=== PATIENT | female | born 1945 | race Caucasian/White ===

== ENCOUNTER 2022-08-24 18:51 | Inpatient (IN) | payer MEDICARE, SELFPAY ==
--- NOTE | ~2022-08-24 | XR_ITS ---
EXAMINATION: XR chest 2V DATE: 08/24/2022 20:21 INDICATION: Pain after fall TECHNIQUE: Frontal and lateral views of the chest are obtained COMPARISON: 01/31/2017 FINDINGS: There is mild atelectasis of the lung bases. No pleural effusion or pneumothorax. The cardi omediastinal silhouette is normal. There is severe thoracic spondylosis. IMPRESSION: 1. Mild atelectasis of the lung bases. Reviewed, dictated and finalized at location [facility]
--- NOTE | ~2022-08-24 | CT_ITS ---
EXAMINATION: CT brain wo con INDICATION: Head injury COMPARISON: None TECHNIQUE: Standard unenhanced head CT. The dose-length product (DLP) was 681.00 mGy-cm. The mA was a djusted according to patient size. Iterative reconstruction technique was employed. FINDINGS: There is no acute intraparenchymal hemorrhage. No evidence of mass lesion. No evidence of a cute infarction. There is mild periventricular and subcortical hypodensity probably related to small vessel ischemic disease. There is mild prominence of the sulci and ventricles related to cerebral atr ophy. Intracranial calcified cerebral atherosclerosis is noted. There are no extra-axial collections. There is no mass effect or midline shift. Changes in the globes are likely from ocular lens surgery. The visualized sinuses and mastoid air cells are well aerated. IMPRESSION: 1. No acute intracranial abnormality. 2. Age related findings. Reviewed, dictated and finalized at location [facility]. [facility]
[2022-08-24 18:54] VITALS: BP 135/77; PULSE 95; RESP 19; O2SAT 96
--- NOTE | 2022-08-24 18:58 | ECG_ITS ---
Measurements Intervals [place] Rate: 96 P: OR: 0 QRS: 3 QRSD: 86 T: 83 QT: 343 QTc: 434 Interpretive Statements ATRIAL FIBRILLATION CONSIDER INFERIOR INFARCT, AGE INDETERMINATE NONSPECIFIC ST & T-WAVE ABNORMALITY- hHIGH LATERAL LEADS BASELINE ARTIFACT- I, II, III, AVR, AVL, AVF, V1-V6 ABNORMAL ECG NO PREVIOUS ECG AVAILABLE FOR COMPARISON Electronically Signed On 08-28-2022 15:37:38 [employer] by Watson Knapp D.O.
[2022-08-24 19:59] LABS: Basophils Absolute Auto 0.1 K/mm3 (0.0-0.1); Basophils Percent Auto 0.4 % (0.2-1.2); Eosinophils Percent Auto 0.1 % (0-4.4); Hematocrit 51.3 % (37.0-47.0); Hemoglobin 16.9 g/dL (12.0-15.0); Immature Granulocyte Absolute 0.13 K/mm3 (0.00-0.031); Immature Granulocyte Percent A 0.6 % (0-0.5); Lymphocytes Absolute Auto 0.87 K/mm3 (0.9-3.2); Lymphocytes Percent Auto 3.8 % (18.3-44.2); Mean Corpuscular HGB Conc 32.9 g/dl (32-36); Mean Corpuscular Hemoglobin 30.8 pg (26-34); Mean Corpuscular Volume 93.4 fl (80-100); Mean Platelet Volume 10.6 fl (7.4-10.4); Monocytes Absolute Auto 1.5 K/mm3 (0.1-0.6); Monocytes Percent Auto 6.5 % (2.6-8.5); Neutrophils Absolute Auto 20.3 K/mm3 (1.3-6.7); Neutrophils Percent Auto 88.6 % (45.5-73.1); Platelet Count Result 269 k/mm3 (150-375); Red Blood Count 5.49 M/mm3 (4.2-5.4); Red Cell Distribution Width 13.2 % (11.5-14.5); White Blood Count 22.9 K/mm3 (4.5-10.0)
[2022-08-24 20:02] LABS: Appearance Urine Clear (Clear); Bilirubin Urine 2+ (Negative); Blood Urine 2+ (Negative); Color Urine Amber (Yellow); Glucose Urine UA Negative (Negative); Ketones Urine Trace mg/dL (Negative); Leukocyte Esterase Ur Negative LEU/UL (Negative); Nitrate Urine Negative (Negative); Protein Urine 2+ mg/dL (Negative); Specific Grav Ur >= 1.030 (1.001-1.035); Urobilinogen Urine 0.2 mg/dL (<2.0); pH Urine 5.5 (5.0-9.0)
[2022-08-24 20:06] LABS: Hyaline Casts Urine 15-19 /lpf; Mucus Urine Rare /lpf; Squamous Epithelial Cell Urine Rare /hpf (Few); WBC Urine 0-3 /hpf
[2022-08-24 20:09] LABS: INR 1.1; Prothrombin Time 14.2 Seconds (11.1-14.7)
[2022-08-24 20:11] LABS: Alanine Aminotransferase 57 U/L (6-35); Albumin Level 4.5 g/dL (3.5-5.1); Alkaline Phosphatase 97 U/L (38-126); Anion Gap 8 mmol/L (8-16); Aspartate Amino Transferase 127 U/L (14-36); Bilirubin,Total 1.2 mg/dL (0.2-1.3); Blood Urea Nitrogen 71 mg/dL (7-17); Calcium 9.2 mg/dL (8.4-10.2); Carbon Dioxide 26 mmol/L (22-30); Chloride 101 mmol/L (98-107); Estimated Glomerular Filt Rate 29; Glucose 124 mg/dL (65-110); Lipase 95 U/L (23-300); Potassium 3.8 mmol/L (3.4-5.0); Sodium 135 mmol/L (137-145)
[2022-08-24 20:12] LABS: Partial Thromboplastin Time 28.9 SECONDS (22.3-36.8)
[2022-08-24 20:24] LABS: Add Urine Microscopic? YES
[2022-08-24 21:03] LABS: Creatine Kinase 4741 U/L (30-135)
--- NOTE | 2022-08-24 21:42 | ED.GENADULT ---
HPI - General Adult General Chief complaint: Unspecified Stated complaint: on floor 4 days Time Seen by Provider: 08/24/22 18:58 History of Present Illness HPI narrative: Patient is a 77-year-old female who presents ER for weakness. Reports she has been having recurrent mechanical falls over the last couple weeks. She reports she fell again 4 days ago and was too weak to get off the floor. Did not strike her head or lose consciousness. She is unsure who called 911 or how an ambulance got to her home. She also reports she had previously been in a fdc for 5 days but is unsure how she ended up in the fdc. Denies previous hospitalization. She cannot tell me if she was discharged from the fdc or if she left on her own accord. Patient has no injury from fall. She has no additional complaints. Patient is oriented x3. She is asking if there are birds located in the upper corner of the hospital room (there were no birds). Related Data Home Medications Medication Instructions Recorded Confirmed amlodipine 5 mg tablet 5 mg PO DAILY 08/24/22 08/24/22 atenolol 50 mg tablet 50 mg PO DAILY 08/24/22 08/24/22 budesonide-formoterol HFA 160 1 puff inhalation BID 08/24/22 08/25/22 mcg-4.5 mcg/actuation aerosol inhaler (Symbicort) celecoxib 100 mg capsule 100 mg PO DAILY 08/24/22 08/25/22 duloxetine 30 mg capsule,delayed 30 mg PO DAILY 08/24/22 08/24/22 release lovastatin 10 mg tablet 10 mg PO QHS 08/24/22 08/25/22 aspirin 81 mg capsule 81 mg PO DAILY 08/25/22 08/25/22 cholecalciferol (vitamin D3) 25 25 mcg PO DAILY 08/25/22 08/25/22 mcg (1,000 unit) tablet (Vitamin D3) furosemide 20 mg tablet (Lasix) 20 mg PO DAILY 08/25/22 08/25/22 lorazepam 1 mg tablet 1 mg PO Q8H 08/25/22 08/25/22 Allergies Allergy/AdvReac Type Severity Reaction Status Date / Time No Known Allergies Allergy Mild Verified 01/12/08 22:16 Review of Systems Review of Systems: All systems reviewed & are unremarkable except as noted in HPI and below Constitutional: Constitutional: Denies chills, Denies fatigue, Denies fever(s) and Reports frequent falls ENT: Denies nasal congestion and Denies sore throat Cardiovascular: Cardiovascular: Denies chest pain, Denies rapid heart rate and Denies radiating jaw, neck or arm pain Respiratory: Respiratory: Denies cough, Denies dyspnea and Denies wheezing Gastrointestinal: Gastrointestinal: Denies abdominal pain, Denies diarrhea, Denies nausea and Denies vomiting Musculoskeletal: Musculoskeletal: Denies arthralgias, Denies joint swelling and Denies muscle cramps Neurologic: Denies syncope and Denies headache(s) Psychiatric: Psychiatric: Reports visual hallucinations (Reports seeing birds in the corner of the hospital room.) [facility] Family History Family History Sibling Diabetes mellitus Family history of liver disease Other Family history of arthritis Family history of congenital heart disease Family history of malignant neoplasm Hypertension Social History Social History Smoking packs per day: 1.5 Smoking cigarettes per day: 30.0 Smoking status: Current every day smoker Tobacco type: cigarettes Alcohol intake: never Substance use: never Lack of Transportation: No Lack of Food: Never True Current Housing: I Have Housing Concerned About Future Housing: No Difficulty Paying Gas/Electric Bills: No Difficulty Paying for Meds: No Currently Unemployed: No Education: High School Diploma/GED Difficulty w/ Childcare or Family Care: No Spiritual care concerns: No Exam Narrative: GENERAL: Well-appearing, well-nourished, and in no acute distress. HEAD: Normocephalic, atraumatic. EYES: PERRL and EOMI. ENT: Mucous membranes moist. NECK: Supple. CHEST: Clear to auscultation. No respiratory distress. HEART: Irregular regular rate and rhythm. Normal peripheral pulses. ABDOMEN: Soft, n
[2022-08-24] MEDS: SODIUM CHLORIDE 0.9% IV 1,000 ML 999 ML IV CONT (22:04)
[2022-08-24 22:07] VITALS: BP 136/77; BP 145/57; PULSE 84; PULSE 88
--- NOTE | 2022-08-24 22:08 | PM.IMHP ---
H&P: HPI History of Present Illness Date/Time: 08/24/22 22:08 Chief Complaint: Fall Narrative: This is a 77-year-old female with past medical history significant for hypertension, psoriasis, asthma, dyslipidemia, dyslipidemia, degenerative joint disease. Patient lives at home alone and suffered a fall in the middle of the night a ground level fall mechanical according to patient she was sitting next to her tub in the bathroom for several days, 4, she was able to get hold of someone the called the police who came home to check on her EMS was called and patient was brought to the emergency room. Patient denies any loss of consciousness, she had significant weakness and was unable to get up by herself. Patient denies any fevers, rigors, chills, no nausea, no vomiting, no diarrhea, no dizziness, no lightheadedness, no chest pain, no shortness of breath. Workup was significant for a CPK level of 4700, BUN 70/creatinine 1.7, lactic acid 2.5, a CT of the head was reported as: FINDINGS: There is no acute intraparenchymal hemorrhage. No evidence of mass lesion. No evidence of acute infarction. There is mild periventricular and subcortical hypodensity probably related to small vessel ischemic disease. There is mild prominence of the sulci and ventricles related to cerebral atrophy. Intracranial calcified cerebral atherosclerosis is noted. There are no extra-axial collections. There is no mass effect or midline shift. Changes in the globes are likely from ocular lens surgery. The visualized sinuses and mastoid air cells are well aerated. IMPRESSION: 1. No acute intracranial abnormality. A chest x-ray was reported as: FINDINGS: There is mild atelectasis of the lung bases. No pleural effusion or pneumothorax. The cardiomediastinal silhouette is normal. There is severe thoracic spondylosis. IMPRESSION: 1. Mild atelectasis of the lung bases. Review of Systems Review of Systems: Fall Constitutional: Constitutional: Denies chills, Denies fatigue, Denies fever(s), Denies lethargy, Denies malaise, Denies poor appetite and Reports weakness Eyes: Eyes: Denies change in vision ENT: Denies dysphagia, Denies vertigo, Denies dizziness and Denies odynophagia Cardiovascular: Cardiovascular: Denies chest pain, Denies irregular heart rhythm, Denies leg edema, Denies lightheadedness and Denies radiating jaw, neck or arm pain Respiratory: Respiratory: Denies chest congestion, Denies cough, Denies excessive phlegm production and Denies dyspnea Gastrointestinal: Gastrointestinal: Denies abdominal pain, Denies dyspepsia, Denies heartburn, Denies diarrhea, Denies nausea and Denies vomiting Genitourinary: Genitourinary: Denies dysuria Musculoskeletal: Musculoskeletal: Reports muscle weakness Integumentary/Breasts: Skin/Breast: Reports rash (Psoriasis patch) Neurologic: Denies abnormal gait, Denies vertigo, Denies dizziness, Denies syncope, Reports frequent falls, Denies focal weakness and Denies Sensory deficit (Neuro) Psychiatric: Psychiatric: Reports no additional psychiatric complaints and Reports as per HPI Endocrine: Endocrine: Denies cold intolerance, Denies flushing, Denies heat intolerance, Denies polyphagia, Denies polydipsia and Denies palpitations Hematologic/Lymphatic: Hematologic/Lymphatic: Reports no additional hematologic/lymphatic complaints and Reports as per HPI Allergic/Immunologic: Allergic/Immunologic: Reports no additional allergic/immunologic complaints and Reports as per HPI PMFSH Family History Family History (Updated 05/15/18 @ 13:32 by DOCTOR UNKNOWN) Sibling Diabetes mellitus Family history of liver disease Other Family history of arthritis Family history of congenital heart disease Family history of malignant neoplasm Hypertension Social History Social History Smoking packs per day: 1.5 Smoking cigarettes per day: 30.0 Smoking status: Current every day smoker Tobacco type: cigarettes Alcohol inta
--- NOTE | 2022-08-24 22:10 | PC.NURSE ---
pt unable to stand for orthostatic pressures.
[2022-08-24 22:58] LABS: Lactic Acid Reflex 2.5 mmol/L (0.7-2.0)
[2022-08-24 23:01] VITALS: BP 142/59; PULSE 78; RESP 19; O2SAT 100
[2022-08-24 23:02] VITALS: PULSE 82
--- NOTE | 2022-08-24 23:49 | ADMGEN ---
This patient, Merly Stratton I, was admitted to Medical Room 345-. Patient/family oriented to hospital policies and general routines including ID bracelet, bed and alarms, visiting hours, pain management, procedures, bathroom and other care routines, personal items, smoking policy, room service/diet, and visiting hours. Information on how to activate the Rapid Response Team has been discussed. Patient/Family are encouraged to report perceived risks to care and to ask questions if they do not understand what they are told or what they should do.
[2022-08-25] VITALS (8 sets, daily range): BP systolic 121–151; BP diastolic 60–68; PULSE 74–87; RESP 16–26; TEMP 36.4–36.9; O2SAT 92–96; BMI 42.7
[2022-08-25] MEDS: LORazepam (*CRX) 1 MG TABLET PO ×4 (00:48→21:02)
[2022-08-25] MEDS: SODIUM CHLORIDE 0.9% IV 1,000 ML 125 ML IV CONT ×4 (00:48→23:37)
[2022-08-25 01:00] LABS: Basophils Absolute Auto 0.1 K/mm3 (0.0-0.1); Basophils Percent Auto 0.4 % (0.2-1.2); Eosinophils Absolute Auto 0.1 K/mm3 (0-0.3); Eosinophils Percent Auto 0.3 % (0-4.4); Immature Granulocyte Absolute 0.11 K/mm3 (0.00-0.031); Immature Granulocyte Percent A 0.5 % (0-0.5); Lymphocytes Absolute Auto 1.14 K/mm3 (0.9-3.2); Lymphocytes Percent Auto 5.6 % (18.3-44.2); Mean Corpuscular HGB Conc 32.6 g/dl (32-36); Mean Corpuscular Hemoglobin 30.5 pg (26-34); Mean Corpuscular Volume 93.7 fl (80-100); Mean Platelet Volume 10.7 fl (7.4-10.4); Monocytes Absolute Auto 1.4 K/mm3 (0.1-0.6); Monocytes Percent Auto 6.8 % (2.6-8.5); Neutrophils Absolute Auto 17.6 K/mm3 (1.3-6.7); Neutrophils Percent Auto 86.4 % (45.5-73.1); Platelet Count Result 232 k/mm3 (150-375); Red Blood Count 4.91 M/mm3 (4.2-5.4); Red Cell Distribution Width 13.2 % (11.5-14.5); White Blood Count 20.4 K/mm3 (4.5-10.0)
--- NOTE | 2022-08-25 01:09 | ECG_ITS ---
Measurements Intervals [place] Rate: 91 P: 142 [place]: 174 QRS: 176 QRSD: 96 T: 150 QT: 377 QTc: 465 Interpretive Statements SINUS RHYTHM LIMB LEAD REVERSAL SUPRAVENTRICULAR BIGEMINY BORDERLINE T WAVE ABNORMALITY- ANT/INF LEADS BASELINE ARTIFACT- V3, V6 ABNORMAL ECG COMPARED TO ECG 08/24/2022 18:58:15 SINUS RHYTHM NOW PRESENT Electronically Signed On 08-25-2022 7:59:01 [employer] by Watson Knapp D.O.
[2022-08-25 01:14] LABS: Anion Gap 8 mmol/L (8-16); Blood Urea Nitrogen 67 mg/dL (7-17); Calcium 8.3 mg/dL (8.4-10.2); Carbon Dioxide 23 mmol/L (22-30); Chloride 104 mmol/L (98-107); Estimated CRCL calculation 44 ml/min; Estimated Glomerular Filt Rate 37; Glucose 136 mg/dL (65-110); Lactic Acid Reflex 2.1 mmol/L (0.7-2.0); Potassium 3.5 mmol/L (3.4-5.0); Sodium 135 mmol/L (137-145)
[2022-08-25 01:20] LABS: Creatine Kinase 3141 U/L (30-135)
[2022-08-25 01:46] LABS: Reflex Lactic Acid Yes or No Add Lactic
--- NOTE | 2022-08-25 03:10 | NBADM ---
This patient Merly Stratton I was born on [birth year] at 22:27. Apgars / .
--- NOTE | 2022-08-25 03:11 | PC.NURSE ---
0157 NOTIFIED RESPIRATORY OF EKG ORDER.
[2022-08-25] MEDS: CHOLECALCIFEROL 1,000 UNITS TABLET 1000 UNITS PO (08:19)
[2022-08-25] MEDS: ASPIRIN 81 MG CHEWABLE TABLET PO (08:19)
[2022-08-25] MEDS: DULoxetine HCL 30 MG CAPSULE.DR PO (08:19)
[2022-08-25] MEDS: FLUTICASONE/SALMETEROL 115-21 MCG INHALER 1 PUFF 2 PUFF INHALATION ×2 (09:05→20:45)
[2022-08-25 09:14] LABS: Glucose Point of Care 101 mg/dl (65-105)
--- NOTE | 2022-08-25 09:15 | PM.IMPN ---
Progress Note: A&P Assessment and Plan (1) Fall: Code(s): W19.XXXA - Unspecified fall, initial encounter Status: Acute Assessment and Plan: She fell in the bathroom and laid on the floor for 4 days Reports severe leg weakness Fall precautions PT/OT ordered (2) Rhabdomyolysis: Code(s): M62.82 - Rhabdomyolysis Status: Acute Assessment and Plan: Secondary to fall and laying on the ground for 4 days CK elevated at 4700 on admission, currently 3141 Continue IV fluids Trend labs Stable at this time (3) SAVAGE (acute kidney injury): Code(s): N17.9 - Acute kidney failure, unspecified Status: Acute Assessment and Plan: BUN/Cr elevated on arrival 71/1.70 Currently at 67/1.40 unknown baseline Likely pre renal azotemia, dehydration related to rhabo and fall Continue to monitor BUN and creatinine Receiving IV fluids (4) Leukocytosis: Code(s): D72.829 - Elevated white blood cell count, unspecified Status: Acute Assessment and Plan: Seems to be reactive No signs of infection Trending down Currently 20.4 Continue to trend hold off on antibiotics for now Time Spent With Patient Time: 57 minutes Time with patient: Greater than 35 minutes Subjective Date/time seen: 08/25/22 12:52 Interval history: [place] [address] [address] [place] [address] History & Physical Report Signed Patient: Merly Stratton I MR#: [id number] : 1945 Acct:[id number] Age/Sex: 77 / F 08/25/22 0915 Patient was eating breakfast. Patient stated that she feels a lot better however her legs are very very weak. She also stated that she has a little short of breath but she has not had any of her medications for 4 days. She denies any chest pain, nausea, vomiting, diarrhea constipation. She does have a really good appetite. CK is down to 3141 today. 08/24/22? 22:08 This is a 77-year-old female with past medical history significant for hypertension, psoriasis, asthma, dyslipidemia, dyslipidemia, degenerative joint disease.? Patient lives at home alone and suffered a fall in the middle of the night a ground level fall mechanical according to patient she was sitting next to her tub in the bathroom for several days, 4, she was able to get hold of someone the called the police who came home to check on her EMS was called and patient was brought to the emergency room.? Patient denies any loss of consciousness, she had significant weakness and was unable to get up by herself.? Patient denies any fevers, rigors, chills, no nausea, no vomiting, no diarrhea, no dizziness, no lightheadedness, no chest pain, no shortness of breath.? Workup was significant for a CPK level of 4700, BUN 70/creatinine 1.7, lactic acid 2.5 Review of Systems Review of Systems: All systems reviewed & are unremarkable except as noted in HPI and below Exam Narrative: General: well-nourished, well-appearing 77-year-old female, laying in bed, comfortable, NARD Neuro: awake, alert and oriented x4, speech clear, no focal neuro deficits noted HEENMT: normocephalic, atraumatic, EOMI, sclerae anicteric, moist oral mucosa Respiratory: Clear to auscultation bilaterally without crackles, rhonchi or wheezes, nonlabored breathing Cardio: regular rate, regular rhythm with S1-S2 Abdomen: nondistended, normoactive bowel sounds, soft, nontender to palpation Extremities: no edema, erythema, or tenderness to palpation, DP pulses 2+ bilaterally Skin: no rashes or lesions, warm and dry Psych: appropriate mood and affect, judgment and insight intact Objective Data Vital Signs Vital Signs: Vital Signs - 24 hr 08/24/22 18:54 08/24/22 22:07 08/24/22 22:07 Temperature Pulse Rate 95 84 88 Respiratory Rate 19 Blood Pressure 135/77 136/77 145/57 H Pulse Oximetry 96
--- NOTE | 2022-08-25 09:15 | P.PNIM_ITS ---
Progress Note: A&P Assessment and Plan (1) Fall: Code(s): W19.XXXA - Unspecified fall, initial encounter Status: Acute Assessment and Plan: * She fell in the bathroom and laid on the floor for 4 days * Reports severe leg weakness * Fall precautions * PT/OT ordered (2) Rhabdomyolysis: Code(s): M62.82 - Rhabdomyolysis Status: Acute Assessment and Plan: * Secondary to fall and laying on the ground for 4 days * CK elevated at 4700 on admission, currently 3141 * Continue IV fluids * Trend labs * Stable at this time (3) SAVAGE (acute kidney injury): Code(s): N17.9 - Acute kidney failure, unspecified Status: Acute Assessment and Plan: * BUN/Cr elevated on arrival 71/1.70 * Currently at 67/1.40 * unknown baseline * Likely pre renal azotemia, dehydration related to rhabo and fall * Continue to monitor BUN and creatinine * Receiving IV fluids (4) Leukocytosis: Code(s): D72.829 - Elevated white blood cell count, unspecified Status: Acute Assessment and Plan: * Seems to be reactive * No signs of infection * Trending down * Currently 20.4 * Continue to trend * hold off on antibiotics for now Time Spent With Patient Time: 57 minutes Time with patient: Greater than 35 minutes Subjective Date/time seen: 08/25/22 12:52 Interval history: [place] [id number] [place], [place] [id number] History & Physical Report Signed Patient: Merly Stratton I MR#: [id number] : 1945 Acct:[id number] Age/Sex: 77 / F 08/25/22 0915 Patient was eating breakfast. Patient stated that she feels a lot better however her legs are very very weak. She also stated that she has a little short of breath but she has not had any of her medications for 4 days. She denies any chest pain, nausea, vomiting, diarrhea constipation. She does have a really good appetite. CK is down to 3141 today. 08/24/22? 22:08 This is a 77-year-old female with past medical history significant for hypertension, psoriasis, asthma, dyslipidemia, dyslipidemia, degenerative joint disease.? Patient lives at home alone and suffered a fall in the middle of the night a ground level fall mechanical according to patient she was sitting next to her tub in the bathroom for several days, 4, she was able to get hold of someone the called the police who came home to check on her EMS was called and patient was brought to the emergency room.? Patient denies any loss of consciousness, she had significant weakness and was unable to get up by herself.? Patient denies any fevers, rigors, chills, no nausea, no vomiting, no diarrhea, no dizziness, no lightheadedness, no chest pain, no shortness of breath.? Workup was significant for a CPK level of 4700, BUN 70/creatinine 1.7, lactic acid 2.5 Review of Systems Review of Systems: All systems reviewed & are unremarkable except as noted in HPI and below Exam Narrative: General: well-nourished, well-appearing 77-year-old female, laying in bed, comfortable, NARD Neuro: awak
[2022-08-25 11:59] LABS: Glucose Point of Care 148 mg/dl (65-105)
[2022-08-25 17:21] LABS: Glucose Point of Care 112 mg/dl (65-105)
[2022-08-25 20:54] LABS: Glucose Point of Care 166 mg/dl (65-105)
[2022-08-25] MEDS: ACETAMINOPHEN 325 MG TABLET 650 MG PO (23:35)
[2022-08-26] VITALS (7 sets, daily range): BP systolic 111–142; BP diastolic 48–62; PULSE 63–88; RESP 16–20; TEMP 35.8–36.9; O2SAT 94–99
[2022-08-26] MEDS: LORazepam (*CRX) 1 MG TABLET PO ×3 (05:11→20:22)
[2022-08-26 05:27] LABS: Basophils Absolute Auto 0.1 K/mm3 (0.0-0.1); Basophils Percent Auto 0.8 % (0.2-1.2); Eosinophils Absolute Auto 0.6 K/mm3 (0-0.3); Eosinophils Percent Auto 5.2 % (0-4.4); Hematocrit 39.3 % (37.0-47.0); Hemoglobin 12.7 g/dL (12.0-15.0); Immature Granulocyte Absolute 0.07 K/mm3 (0.00-0.031); Immature Granulocyte Percent A 0.6 % (0-0.5); Lymphocytes Absolute Auto 1.58 K/mm3 (0.9-3.2); Lymphocytes Percent Auto 13.7 % (18.3-44.2); Mean Corpuscular HGB Conc 32.3 g/dl (32-36); Mean Corpuscular Hemoglobin 30.7 pg (26-34); Mean Corpuscular Volume 94.9 fl (80-100); Mean Platelet Volume 10.6 fl (7.4-10.4); Monocytes Absolute Auto 1.2 K/mm3 (0.1-0.6); Neutrophils Absolute Auto 8.1 K/mm3 (1.3-6.7); Neutrophils Percent Auto 69.7 % (45.5-73.1); Platelet Count Result 205 k/mm3 (150-375); Red Blood Count 4.14 M/mm3 (4.2-5.4); Red Cell Distribution Width 13.4 % (11.5-14.5); White Blood Count 11.6 K/mm3 (4.5-10.0)
[2022-08-26 05:44] LABS: Alanine Aminotransferase 43 U/L (6-35); Albumin Level 2.7 g/dL (3.5-5.1); Alkaline Phosphatase 57 U/L (38-126); Anion Gap 3 mmol/L (8-16); Aspartate Amino Transferase 65 U/L (14-36); Bilirubin,Total 0.7 mg/dL (0.2-1.3); Blood Urea Nitrogen 41 mg/dL (7-17); Calcium 7.5 mg/dL (8.4-10.2); Carbon Dioxide 24 mmol/L (22-30); Chloride 113 mmol/L (98-107); Creatine Kinase 1279 U/L (30-135); Estimated CRCL calculation 51 ml/min; Estimated Glomerular Filt Rate 44; Glucose 100 mg/dL (65-110); Magnesium 2.5 mg/dL (1.6-2.3); Potassium 3.2 mmol/L (3.4-5.0); Sodium 140 mmol/L (137-145)
[2022-08-26] MEDS: SODIUM CHLORIDE 0.9% IV 1,000 ML 125 ML IV CONT ×2 (07:32→20:23)
[2022-08-26] MEDS: DULoxetine HCL 30 MG CAPSULE.DR PO (08:56)
[2022-08-26] MEDS: CHOLECALCIFEROL 1,000 UNITS TABLET 1000 UNITS PO (08:56)
[2022-08-26] MEDS: ASPIRIN 81 MG CHEWABLE TABLET PO (08:56)
[2022-08-26] MEDS: FLUTICASONE/SALMETEROL 115-21 MCG INHALER 1 PUFF 2 PUFF INHALATION ×2 (09:15→21:03)
[2022-08-26] MEDS: ENOXAPARIN 40 MG/0.4 ML SYRINGE SUB-Q (09:25)
--- NOTE | 2022-08-26 12:00 | PM.IMPN ---
Progress Note: A&P Assessment and Plan (1) Fall: Code(s): W19.XXXA - Unspecified fall, initial encounter Status: Acute Assessment and Plan: She fell in the bathroom and laid on the floor for 4 days Reports severe leg weakness Fall precautions PT/OT ordered (2) Rhabdomyolysis: Code(s): M62.82 - Rhabdomyolysis Status: Acute Assessment and Plan: Secondary to fall and laying on the ground for 4 days CK elevated at 4700 on admission, currently 1279 Continue IV fluids at 125ml/hr Trend labs Stable at this time (3) SAVAGE (acute kidney injury): Code(s): N17.9 - Acute kidney failure, unspecified Status: Acute Assessment and Plan: BUN/Cr elevated on arrival 71/1.70 Currently at 41/1.20 unknown baseline Likely pre renal azotemia, dehydration related to rhabo and fall Continue to monitor BUN and creatinine Receiving IV fluids (4) Leukocytosis: Code(s): D72.829 - Elevated white blood cell count, unspecified Status: Acute Assessment and Plan: Seems to be reactive No signs of infection Trending down Continues to trend down, currently 11.6 Continue to trend hold off on antibiotics for now Plan ? MEDICAL DECISION MAKING NARRATIVE ? History obtained from: Patient which was a 38 minute conversation, and 15 minutes for IV insertion ? History from independent sources: nurse and care coordination ? External chart review: lab trends ? New problems addressed: Emotional ? Chronic illnesses addressed: none ? Independent interpretation of studies: none ? Comorbidities complicating care: ? Diagnostic tests considered but not ordered: ? Risk of complication: High: ? Time spent on encounter: 52 minutes Time Spent With Patient Time with patient: Greater than 35 minutes Subjective Date/time seen: 08/26/22 1200 Interval history: 08/26/22 1200 Patient is pretty upset today. Patient stated that her brother has been over helping her out however he is not happy about her home. He also stated that she needs to get up and get moving around so that she get back home. She currently denies any chest pain, shortness a breath, nausea, vomiting, diarrhea or constipation. She has been eating well. She does seem very sad and she looks as if she was crying. She really wants to get up today and is hopeful that showed to chair. upon arrival it was noted that she did not have an IV and 1 was placed by me. 08/25/22 0915 ? Patient was eating breakfast.? Patient stated that she feels a lot better however her legs are very very weak.? She also stated that she has a little short of breath but she has not had any of her medications for 4 days.? She denies any chest pain, nausea, vomiting, diarrhea constipation.? She does have a really good appetite.? CK is down to 3141 today. 08/24/22? 22:08 This is a 77-year-old female with past medical history significant for hypertension, psoriasis, asthma, dyslipidemia, dyslipidemia, degenerative joint disease.? Patient lives at home alone and suffered a fall in the middle of the night a ground level fall mechanical according to patient she was sitting next to her tub in the bathroom for several days, 4, she was able to get hold of someone the called the police who came home to check on her EMS was called and patient was brought to the emergency room.? Patient denies any loss of consciousness, she had significant weakness and was unable to get up by herself.? Patient denies any fevers, rigors, chills, no nausea, no vomiting, no diarrhea, no dizziness, no lightheadedness, no chest pain, no shortness of breath.? Workup was significant for a CPK level of 4700, BUN 70/creatinine 1.7, lactic acid 2.5 Review of Systems Review of Systems: All systems reviewed & are unremarkable except as noted in HPI and below Exam Narrative: General:? well-n
[2022-08-26] MEDS: POTASSIUM CHLORIDE 20 MEQ TABLET 40 MEQ PO (13:44)
[2022-08-26] MEDS: ACETAMINOPHEN 325 MG TABLET 650 MG PO ×2 (15:59→22:52)
[2022-08-27] VITALS (7 sets, daily range): BP systolic 119–131; BP diastolic 61–66; PULSE 59–89; RESP 16–20; TEMP 35.8–36.7; O2SAT 94–98
[2022-08-27] MEDS: SODIUM CHLORIDE 0.9% IV 1,000 ML 125 ML IV CONT (04:25)
[2022-08-27 05:42] LABS: Basophils Absolute Auto 0.1 K/mm3 (0.0-0.1); Basophils Percent Auto 0.7 % (0.2-1.2); Eosinophils Absolute Auto 0.8 K/mm3 (0-0.3); Eosinophils Percent Auto 7.5 % (0-4.4); Hematocrit 39.5 % (37.0-47.0); Hemoglobin 12.5 g/dL (12.0-15.0); Immature Granulocyte Absolute 0.04 K/mm3 (0.00-0.031); Immature Granulocyte Percent A 0.4 % (0-0.5); Lymphocytes Absolute Auto 1.66 K/mm3 (0.9-3.2); Lymphocytes Percent Auto 16.7 % (18.3-44.2); Mean Corpuscular HGB Conc 31.6 g/dl (32-36); Mean Corpuscular Hemoglobin 30.6 pg (26-34); Mean Corpuscular Volume 96.8 fl (80-100); Mean Platelet Volume 10.3 fl (7.4-10.4); Monocytes Percent Auto 9.5 % (2.6-8.5); Neutrophils Absolute Auto 6.5 K/mm3 (1.3-6.7); Neutrophils Percent Auto 65.2 % (45.5-73.1); Platelet Count Result 202 k/mm3 (150-375); Red Blood Count 4.08 M/mm3 (4.2-5.4); Red Cell Distribution Width 13.4 % (11.5-14.5)
[2022-08-27 05:53] LABS: Alanine Aminotransferase 41 U/L (6-35); Albumin Level 2.6 g/dL (3.5-5.1); Alkaline Phosphatase 57 U/L (38-126); Anion Gap 2 mmol/L (8-16); Aspartate Amino Transferase 50 U/L (14-36); Bilirubin,Total 0.6 mg/dL (0.2-1.3); Blood Urea Nitrogen 22 mg/dL (7-17); Calcium 7.4 mg/dL (8.4-10.2); Carbon Dioxide 24 mmol/L (22-30); Chloride 114 mmol/L (98-107); Creatine Kinase 719 U/L (30-135); Estimated CRCL calculation 61 ml/min; Estimated Glomerular Filt Rate 54; Glucose 94 mg/dL (65-110); Magnesium 2.4 mg/dL (1.6-2.3); Potassium 3.4 mmol/L (3.4-5.0); Sodium 140 mmol/L (137-145)
[2022-08-27] MEDS: LORazepam (*CRX) 1 MG TABLET PO ×3 (05:53→20:57)
[2022-08-27 06:36] LABS: Hepatitis B Surface Antigen Negative (Negative)
[2022-08-27 06:42] LABS: HAV RESULT Negative (Negative); Hepatitis B Core IgM Result Negative (Negative)
[2022-08-27 06:54] LABS: Hepatitis C Virus Antibody Negative (Negative)
[2022-08-27] MEDS: ACETAMINOPHEN 325 MG TABLET 650 MG PO ×2 (06:55→17:17)
[2022-08-27] MEDS: ASPIRIN 81 MG CHEWABLE TABLET PO (08:16)
[2022-08-27] MEDS: CHOLECALCIFEROL 1,000 UNITS TABLET 1000 UNITS PO (08:16)
[2022-08-27] MEDS: ENOXAPARIN 40 MG/0.4 ML SYRINGE SUB-Q (08:16)
[2022-08-27] MEDS: DULoxetine HCL 30 MG CAPSULE.DR PO (08:16)
[2022-08-27] MEDS: amLODIPine BESYLATE 5 MG TABLET PO (09:54)
[2022-08-27] MEDS: atenoloL 50 MG TABLET PO (09:54)
[2022-08-27] MEDS: FUROSEMIDE 20 MG TABLET PO (09:55)
[2022-08-27] MEDS: CELECOXIB 100 MG CAPSULE PO (09:55)
[2022-08-27] MEDS: FLUTICASONE/SALMETEROL 115-21 MCG INHALER 1 PUFF 2 PUFF INHALATION ×2 (10:34→20:57)
--- NOTE | 2022-08-27 11:00 | PM.IMPN ---
Progress Note: A&P Assessment and Plan (1) Fall: Code(s): W19.XXXA - Unspecified fall, initial encounter Status: Acute Assessment and Plan: She fell in the bathroom and laid on the floor for 4 days Reports severe leg weakness Fall precautions PT/OT ordered (2) Rhabdomyolysis: Code(s): M62.82 - Rhabdomyolysis Status: Acute Assessment and Plan: Secondary to fall and laying on the ground for 4 days CK elevated at 4700 on admission, currently 719 Continue IV fluids at 125ml/hr Trend labs Stable at this time (3) SAVAGE (acute kidney injury): Code(s): N17.9 - Acute kidney failure, unspecified Status: Acute Assessment and Plan: BUN/Cr elevated on arrival 71/1.70 Currently at 22/1.00 unknown baseline Likely pre renal azotemia, dehydration related to rhabo and fall Continue to monitor BUN and creatinine Receiving IV fluids Resolved (4) Leukocytosis: Code(s): D72.829 - Elevated white blood cell count, unspecified Status: Acute Assessment and Plan: Seems to be reactive No signs of infection Trending down Continues to trend down, currently 10.0 Continue to trend hold off on antibiotics for now Time Spent With Patient Time: 48 minutes Time with patient: Greater than 35 minutes Subjective Date/time seen: 08/27/22 1100 Interval history: 08/27/22 1100 Patient seems to be doing ok. She is in the chair and is quite disgruntle. She was talking to me about her brother. Currently she denies any chest pain, shortness of breath, nausea, vomiting, diarrhea or constipation. 08/26/22 1200 Patient is pretty upset today. Patient stated that her brother has been over helping her out however he is not happy about her home. He also stated that she needs to get up and get moving around so that she get back home. She currently denies any chest pain, shortness a breath, nausea, vomiting, diarrhea or constipation. She has been eating well. She does seem very sad and she looks as if she was crying. She really wants to get up today and is hopeful that showed to chair. upon arrival it was noted that she did not have an IV and 1 was placed by me. 08/25/22 0915 ? Patient was eating breakfast.? Patient stated that she feels a lot better however her legs are very very weak.? She also stated that she has a little short of breath but she has not had any of her medications for 4 days.? She denies any chest pain, nausea, vomiting, diarrhea constipation.? She does have a really good appetite.? CK is down to 3141 today. 08/24/22? 22:08 This is a 77-year-old female with past medical history significant for hypertension, psoriasis, asthma, dyslipidemia, dyslipidemia, degenerative joint disease.? Patient lives at home alone and suffered a fall in the middle of the night a ground level fall mechanical according to patient she was sitting next to her tub in the bathroom for several days, 4, she was able to get hold of someone the called the police who came home to check on her EMS was called and patient was brought to the emergency room.? Patient denies any loss of consciousness, she had significant weakness and was unable to get up by herself.? Patient denies any fevers, rigors, chills, no nausea, no vomiting, no diarrhea, no dizziness, no lightheadedness, no chest pain, no shortness of breath.? Workup was significant for a CPK level of 4700, BUN 70/creatinine 1.7, lactic acid 2.5 Review of Systems Review of Systems: All systems reviewed & are unremarkable except as noted in HPI and below Exam Narrative: General: well-nourished, well-appearing 77-year-old female, laying in bed, comfortable, NARD Neuro: awake, alert and oriented x4, speech clear, no focal neuro deficits noted HEENMT: normocephalic, atraumatic, EOMI, sclerae anicteric, moist oral mucosa Respiratory: Clear to auscult
[2022-08-27] MEDS: TOLNAFTATE 1% POWDER 45 GM BTL 1 APPLIC TOPICAL ×2 (13:12→21:00)
--- NOTE | 2022-08-27 14:31 | PCOTNOTE ---
Attempted to see patient twice this date. First attempt, patient was with physical therapy. Second attempt, RN reported patient back in bed and upset people will not stop coming in and bothering her. Did not disturb patient for this reason.
[2022-08-27] MEDS: LOVASTATIN 10 MG TABLET PO (20:57)
[2022-08-28] MEDS: ACETAMINOPHEN 325 MG TABLET 650 MG PO (00:33)
[2022-08-28] MEDS: HYDROcodone/acetaminophen (*CRX) 5-325 MG TABLET 1 TAB PO (03:57)
[2022-08-28 05:49] LABS: Basophils Absolute Auto 0.1 K/mm3 (0.0-0.1); Basophils Percent Auto 0.7 % (0.2-1.2); Eosinophils Absolute Auto 0.9 K/mm3 (0-0.3); Eosinophils Percent Auto 8.4 % (0-4.4); Hematocrit 41.7 % (37.0-47.0); Hemoglobin 13.3 g/dL (12.0-15.0); Immature Granulocyte Absolute 0.05 K/mm3 (0.00-0.031); Immature Granulocyte Percent A 0.5 % (0-0.5); Lymphocytes Percent Auto 14.4 % (18.3-44.2); Mean Corpuscular HGB Conc 31.9 g/dl (32-36); Mean Corpuscular Hemoglobin 30.7 pg (26-34); Mean Corpuscular Volume 96.3 fl (80-100); Mean Platelet Volume 10.7 fl (7.4-10.4); Monocytes Absolute Auto 1.1 K/mm3 (0.1-0.6); Monocytes Percent Auto 10.4 % (2.6-8.5); Neutrophils Absolute Auto 6.8 K/mm3 (1.3-6.7); Neutrophils Percent Auto 65.6 % (45.5-73.1); Platelet Count Result 201 k/mm3 (150-375); Red Blood Count 4.33 M/mm3 (4.2-5.4); Red Cell Distribution Width 13.2 % (11.5-14.5); White Blood Count 10.4 K/mm3 (4.5-10.0)
[2022-08-28 06:00] VITALS: BP 120/63; PULSE 59; RESP 16; TEMP 36.7; O2SAT 99
[2022-08-28 06:16] LABS: Alanine Aminotransferase 48 U/L (6-35); Albumin Level 2.6 g/dL (3.5-5.1); Alkaline Phosphatase 56 U/L (38-126); Anion Gap 2 mmol/L (8-16); Aspartate Amino Transferase 44 U/L (14-36); Bilirubin,Total 0.7 mg/dL (0.2-1.3); Blood Urea Nitrogen 19 mg/dL (7-17); Carbon Dioxide 28 mmol/L (22-30); Chloride 110 mmol/L (98-107); Creatine Kinase 426 U/L (30-135); Estimated CRCL calculation 67 ml/min; Estimated Glomerular Filt Rate > 60; Glucose 101 mg/dL (65-110); Magnesium 2.1 mg/dL (1.6-2.3); Potassium 3.9 mmol/L (3.4-5.0); Sodium 140 mmol/L (137-145)
--- NOTE | 2022-08-28 08:00 | PM.DS ---
DS: Admitting Diagnosis Discharge Date 08/28/2022 0800 Admitting Diagnosis Fall, Rhabdomyolysis DS: Discharge Diagnosis Discharge Diagnosis (1) Fall: Code(s): W19.XXXA - Unspecified fall, initial encounter Status: Acute Assessment and Plan: She fell in the bathroom and laid on the floor for 4 days Reports severe leg weakness Fall precautions PT/OT ordered (2) Rhabdomyolysis: Code(s): M62.82 - Rhabdomyolysis Status: Acute Assessment and Plan: Secondary to fall and laying on the ground for 4 days CK elevated at 4700 on admission, currently 719 Continue IV fluids at 125ml/hr Trend labs Stable at this time (3) SAVAGE (acute kidney injury): Code(s): N17.9 - Acute kidney failure, unspecified Status: Acute Assessment and Plan: BUN/Cr elevated on arrival 71/1.70 Currently at 22/1.00 unknown baseline Likely pre renal azotemia, dehydration related to rhabo and fall Continue to monitor BUN and creatinine Receiving IV fluids Resolved (4) Leukocytosis: Code(s): D72.829 - Elevated white blood cell count, unspecified Status: Acute Assessment and Plan: Seems to be reactive No signs of infection Trending down Continues to trend down, currently 10.0 Continue to trend hold off on antibiotics for now DS: Summary Hospital Course Hospital Course: patient is 77-year-old female with past medical history of hypertension, anxiety and depression, hyperlipidemia who presented to the ED after a fall. Patient was in the bathroom and fell and laid on the floor for roughly 4 days before she could get any help to get her up. Upon arrival CK was at 4700 however isn't trending down is currently 719. Patient was started on IV fluids and has been doing well. Currently patient has been working with PT and OT and has been doing pretty well. White blood cell count upon arrival was also elevated 20,000 is currently 10.0 today. Patient has not had any complaints including chest pain, shortness a breath, nausea, vomiting, diarrhea or constipation. Patient has been doing really well since admission. Patient is stable for discharge for labs and vital signs at this time. Status at Discharge Functional status at discharge: uses cane/walker Overall status at discharge: patient is progressing back to baseline Time Spent with Patient Time attestation: Total time spent providing and/or coordinating discharge services: 58 minutes Time spent: Greater than 30 minutes Specific discharge activities: Diagnostic testing, chart review, developing a treatment plan, education, care coordination documentation, physical exam, result review Exam Narrative: General: well-nourished, well-appearing 77-year-old female, laying in bed, comfortable, NARD Neuro: awake, alert and oriented x4, speech clear, no focal neuro deficits noted HEENMT: normocephalic, atraumatic, EOMI, sclerae anicteric, moist oral mucosa Respiratory: Clear to auscultation bilaterally without crackles, rhonchi or wheezes, nonlabored breathing Cardio: regular rate, regular rhythm with S1-S2 Abdomen: nondistended, normoactive bowel sounds, soft, nontender to palpation Extremities: no edema, erythema, or tenderness to palpation, DP pulses 2+ bilaterally Skin: no rashes or lesions, warm and dry Psych: appropriate mood and affect, judgment and insight intact DS: Data Data Completed and Pending Labs on day of discharge: Labs from last 24 hours 08/27/22 08/27/22 08/27/22 05:29 05:29 05:29 WBC 10.0 RBC 4.08 L Hgb 12.5 Hct 39.5 MCV 96.8 MCH 30.6 MCHC 31.6 L RDW 13.4 Plt Count 202 MPV 10.3 Immature Gran % (Auto) 0.4 Neut % (Auto) 65.2 Lymph % (Auto) 16.7 L [place] % (Auto) 9.5 H Eos % (Auto) 7.5 H Baso % (Auto) 0.7 Lymph # (Auto) 1.66 [place] # (Auto) 1.0 H Eos # (Auto) 0.
[2022-08-28] MEDS: FLUTICASONE/SALMETEROL 115-21 MCG INHALER 1 PUFF 2 PUFF INHALATION (09:07)
[2022-08-28] MEDS: LORazepam (*CRX) 1 MG TABLET PO ×2 (09:50→13:43)
[2022-08-28 09:51] VITALS: PULSE 72
[2022-08-28] MEDS: amLODIPine BESYLATE 5 MG TABLET PO (09:51)
[2022-08-28] MEDS: ASPIRIN 81 MG CHEWABLE TABLET PO (09:51)
[2022-08-28] MEDS: FUROSEMIDE 20 MG TABLET PO (09:51)
[2022-08-28] MEDS: DULoxetine HCL 30 MG CAPSULE.DR PO (09:51)
[2022-08-28] MEDS: atenoloL 50 MG TABLET PO (09:51)
[2022-08-28] MEDS: CELECOXIB 100 MG CAPSULE PO (09:51)
[2022-08-28] MEDS: CHOLECALCIFEROL 1,000 UNITS TABLET 1000 UNITS PO (09:52)
[2022-08-28] MEDS: ENOXAPARIN 40 MG/0.4 ML SYRINGE SUB-Q (09:52)
[2022-08-28] MEDS: TOLNAFTATE 1% POWDER 45 GM BTL 1 APPLIC TOPICAL (09:53)
[2022-08-28 11:43] LABS: EDCOVIDSCREEN Negative (Negative)
== END 2022-08-28 14:05 | DRG 558 ==
LOC: ANHED 19:04 → ANH3MED 23:17
PROVIDERS: Admitting Provider Internal Medicine; Emergency Provider Emergency Medicine; PCP Nurse Practitioner Adult Health; Visit Provider Nurse Practitioner
DX: M62.82 Rhabdomyolysis (principal); N17.9 Acute kidney failure, unspecified; W18.30XA Fall on same level, unspecified, initial encounter; E86.0 Dehydration; Z20.822 Contact with and (suspected) exposure to COVID-19; D72.829 Elevated white blood cell count, unspecified; F41.8 Other specified anxiety disorders; I10 Essential (primary) hypertension; E78.5 Hyperlipidemia, unspecified; R29.6 Repeated falls; F17.210 Nicotine dependence, cigarettes, uncomplicated; L40.9 Psoriasis, unspecified
CPT/HCPCS: 36415; 70450; 71046; 80048; 80053; 80074; 81001; 82550; 82948; 83605; 83690; 83735; 85025; 85610; 85730; 87426; 93005; 94640; 96360; 96361; 96372; 97162; 97165; 97530; 97535; 99285; A9270; C9803; G0378; J1650; J7030

== ENCOUNTER 2023-10-07 12:11 | Inpatient (IN) | payer MEDICARE, MEDICAID, SELFPAY ==
[2023-10-07] VITALS (33 sets, daily range): BP systolic 107–137; BP diastolic 67–119; PULSE 90–160; RESP 20–29; TEMP 36.3–36.8; O2SAT 90–100; BMI 44.7
--- NOTE | ~2023-10-07 | US_ITS ---
US renal BI 10/10/2023 17:06 Procedure: Realtime transabdominal ultrasound of the kidneys and bladder. Indication: Acute renal insufficiency Comparison: No prior studies for comparison. Findings: Renal echotexture is normal bilaterally without hydronephrosis, contour deforming mass or r enal calculus. The right kidney measures 9.3 cm and left kidney measures 10.3 cm. Bladder within nor mal limits. Impression: 1: Unremarkable renal ultrasound. No stones, masses or hydronephrosis. Reviewed, dictated and finalized at location A. Impression: 1: Unremarkable renal ultrasound. No stones, masses or hydronephrosis.
--- NOTE | ~2023-10-07 | XR_ITS ---
EXAMINATION: XR chest 1V portable DATE: 10/07/2023 12:32 INDICATION: Shortness of breath. Cough. TECHNIQUE: A single frontal view of the chest was obtained. COMPARISON: Chest 2 views 08/24/2022 FINDINGS: There is a small right pleural effusion versus pleural thickening. There is mild atelectasi s versus scarring at right lung base. No pneumothorax. The heart size is normal. IMPRESSION: 1. Small right pleural effusion versus pleural thickening with mild right atelectasis versus scarring at right lung base. Reviewed, dictated and finalized at location A. IMPRESSION: 1. Small right pleural effusion versus pleural thickening with mild right atele ctasis versus scarring at right lung base.
--- NOTE | ~2023-10-07 | US_ITS ---
EXAMINATION: US abdomen limited DATE: 10/08/2023 09:24 INDICATION: Elevated liver function tests TECHNIQUE: Multiple grayscale and Doppler ultrasound images of the abdomen were obtained. COMPARISON: None FINDINGS: The pancreatic head and body are normal in appearance. The pancreatic tail is not visualized. Visual ized proximal aorta and inferior vena cava are normal. Liver has normal echogenicity and contour, wit h a smooth surface. No liver lesion identified. No intrahepatic biliary duct dilation suspected. Port al venous flow was seen in the hepatopetal, normal direction and has normal Doppler waveform. The gal lbladder is normal in appearance. There is no cholelithiasis. The common bile duct measures 4 mm, wh ich is normal. Sonographic Stevens sign was reported as negative by the loan servicing specialist. Visualized portio n of the right kidney demonstrates normal echogenicity with no hydronephrosis. IMPRESSION: 1. Normal right upper quadrant ultrasound. Reviewed, dictated and finalized at location L.
--- NOTE | ~2023-10-07 | XR_ITS ---
EXAMINATION: XR shoulder RT min 2V DATE: 10/07/2023 13:16 INDICATION: Right shoulder pain. TECHNIQUE: 5 views of right shoulder were obtained. COMPARISON: None. FINDINGS: Bone alignment is normal. No fracture. There is mild osteoarthritis of glenohumeral joint a nd severe osteoarthritis of acromioclavicular joint. There is a small right pleural effusion versus p leural thickening. There are airspace opacities at right lung base. IMPRESSION: 1. Polyarticular osteoarthritis. 2. Small right pleural effusion versus pleural thickening. 3. Airspace opacities at right lung base, likely atelectasis or scarring. Reviewed, dictated and finalized at location A.
--- NOTE | 2023-10-07 12:12 | ECG_ITS ---
Measurements Intervals [place] Rate: 135 P: [place]: 0 QRS: 20 QRSD: 93 T: 67 QT: 317 QTc: 476 Interpretive Statements ATRIAL FIBRILLATION WITH RAPID VENTRICULAR RESPONSE NONSPECIFIC ST & T-WAVE ABNORMALITY- INF/LAT LEADS BASELINE ARTIFACT- I, II, III, AVR, AVL, AVF, V1-V6 ABNORMAL ECG COMPARED TO ECG 08/25/2022 02:19:35 ATRIAL FIBRILLATION NOW PRESENT Electronically Signed On 10-07-2023 12:50:59 CDT by Watson Knapp D.O.
[2023-10-07] MEDS: dilTIAZem HCl INJ 25 MG/5 ML VIAL (12:38)
--- NOTE | 2023-10-07 12:39 | ED.SOB ---
HPI - SOB/Dyspnea General Chief Complaint: Shortness of Breath/Dyspnea Stated Complaint: SOB Time Seen by Provider: 10/07/23 12:25 History of Present Illness HPI Narrative: Patient is a 78-year-old female with a history of hypertension, hyperlipidemia, COPD presenting with shortness of breath. Patient states that she has been short of breath for at least 1 week. States that her heart rate has been very fast for the last week according to her blood pressure cuff. States that she thought her symptoms would resolve so she did not come in to be checked out. Today she got sick of her symptoms so she called 911. States that she has had a productive cough and a lot of wheezing for the last 3 weeks that is temporarily helped with her inhalers. No fevers, no chest pain, no abdominal pain or nausea or vomiting. Denies any leg swelling. Related Data Home Medications Medication Instructions Recorded Confirmed amlodipine 5 mg tablet 5 mg PO DAILY 08/24/22 10/13/23 budesonide-formoterol HFA 160 1 puff inhalation BID 08/24/22 10/13/23 mcg-4.5 mcg/actuation aerosol inhaler (Symbicort) duloxetine 30 mg capsule,delayed 30 mg PO DAILY 08/24/22 10/13/23 release lovastatin 10 mg tablet 10 mg PO QHS 08/24/22 10/13/23 aspirin 81 mg capsule 81 mg PO DAILY 08/25/22 10/13/23 cholecalciferol (vitamin D3) 25 25 mcg PO DAILY 08/25/22 10/13/23 mcg (1,000 unit) tablet (Vitamin D3) lorazepam 1 mg tablet 1 mg PO Q6H PRN Anxiety 10/07/23 10/13/23 Allergies Allergy/AdvReac Type Severity Reaction Status Date / Time No Known Allergies Allergy Mild Verified 10/13/23 07:20 Review of Systems Review of Systems: All systems reviewed & are unremarkable except as noted in HPI and below PMFSH Past Medical History Medical History SAVAGE (acute kidney injury) (08/24/22) 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 Code status: Full code. Smoking packs per day: 1 Smoking cigarettes per day: 20.0 Years smoked: 60 Smoking pack-years: 60.00 Smoking status: Current every day smoker Alcohol intake: never Substance use: never Substance use type: does not use Do You Feel Safe in your Home?: Yes Lack of Transportation: No Lack of Food: Never True Current Housing: I Do Not Have Housing Concerned About Future Housing: No Difficulty Paying Gas/Electric Bills: No Difficulty Paying for Meds: No Currently Unemployed: No Education: High School Diploma/GED Difficulty w/ Childcare or Family Care: No Spiritual care concerns: No Exam Narrative: GENERAL: Nontoxic, no acute distress HEAD: Normocephalic, atraumatic. EYES: PERRLA and EOMI. ENT: Mucous membranes moist. NECK: Supple. CHEST: Wheezing and crackles bilaterally, no respiratory distress HEART: Tachycardic, irregularly irregular rhythm ABDOMEN: Soft, nontender, nondistended EXTREMITIES: Normal range of motion. No edema. SKIN: Warm, dry, +psoriatic plaques on hands, ankles NEURO: Alert and oriented x3. PSYCH: Normal mood and affect. Course Vital Signs Vital signs: Vital Signs Pulse Rate 150 H 10/07/23 12:25 Pulse Oximetry 95 10/07/23 12:25 Oxygen Delivery Room Air 10/07/23 12:25 Temperature 97.9 F 10/12/23 15:34 Pulse Rate 58 L 10/12/23 16:00 Respirat
[2023-10-07] MEDS: SODIUM CHLORIDE 0.9% IV 1,000 ML 999 ML IV CONT (12:46)
[2023-10-07] MEDS: dilTIAZem 100 MG/100 ML 100 MG/100 ML BAG IV CONT (12:49)
[2023-10-07] MEDS: methylPREDNISolone SOD SUCC 125 MG VIAL IV PUSH (12:49)
[2023-10-07 12:50] LABS: Basophils Absolute Auto 0.1 K/mm3 (0.0-0.1); Basophils Percent Auto 0.8 % (0.2-1.2); Eosinophils Absolute Auto 0.3 K/mm3 (0-0.3); Eosinophils Percent Auto 2.2 % (0-4.4); Hematocrit 41.9 % (37.0-47.0); Hemoglobin 13.3 g/dL (12.0-15.0); Immature Granulocyte Absolute 0.05 K/mm3 (0.00-0.031); Immature Granulocyte Percent A 0.4 % (0-0.5); Lymphocytes Absolute Auto 0.99 K/mm3 (0.9-3.2); Lymphocytes Percent Auto 7.9 % (18.3-44.2); Mean Corpuscular HGB Conc 31.7 g/dl (32-36); Mean Corpuscular Hemoglobin 30.7 pg (26-34); Mean Corpuscular Volume 96.8 fl (80-100); Mean Platelet Volume 10.9 fl (7.4-10.4); Monocytes Absolute Auto 0.8 K/mm3 (0.1-0.6); Monocytes Percent Auto 6.4 % (2.6-8.5); Neutrophils Absolute Auto 10.3 K/mm3 (1.3-6.7); Neutrophils Percent Auto 82.3 % (45.5-73.1); Platelet Count Result 258 k/mm3 (150-375); Red Blood Count 4.33 M/mm3 (4.2-5.4); Red Cell Distribution Width 12.9 % (11.5-14.5); White Blood Count 12.5 K/mm3 (4.5-10.0)
[2023-10-07 12:56] LABS: Alanine Aminotransferase 193 U/L (6-35); Albumin Level 3.8 g/dL (3.5-5.1); Alkaline Phosphatase 129 U/L (38-126); Anion Gap 7 mmol/L (8-16); Aspartate Amino Transferase 93 U/L (14-36); Bilirubin,Total 1.3 mg/dL (0.2-1.3); Blood Urea Nitrogen 20 mg/dL (7-17); Calcium 8.9 mg/dL (8.4-10.2); Carbon Dioxide 21 mmol/L (22-30); Chloride 110 mmol/L (98-107); Estimated CRCL calculation 66 ml/min; Estimated Glomerular Filt Rate > 60; Glucose 121 mg/dL (65-110); Potassium 3.9 mmol/L (3.4-5.0); Sodium 138 mmol/L (137-145)
[2023-10-07] MEDS: IPRATROPIUM BR 0.02% INH SOLN 0.5 MG/2.5 ML VIAL INHALATION (12:57)
[2023-10-07] MEDS: ALBUTEROL SULFATE NEB 2.5 MG/3 ML INH 10 MG INHALATION (12:57)
[2023-10-07 13:18] LABS: Lactic Acid Reflex 1.3 mmol/L (0.7-2.0)
[2023-10-07 13:37] LABS: Lipase 71 U/L (23-300); Magnesium 2.2 mg/dL (1.6-2.3)
[2023-10-07 13:41] LABS: Influenza A QL RT-PCR Negative (Negative); Influenza B QL RT-PCR Negative (Negative); RSV RNA, RT-PCR Negative (Negative); SARS-CoV-2 RNA PCR Negative (Negative)
[2023-10-07 13:49] LABS: NT Pro B Type Natriuretic Pept 5530 pg/mL (19.9-100); Troponin I < 0.012 ng/mL (0.000-0.034)
[2023-10-07 13:51] LABS: Prothrombin Time 13.2 Seconds (11.1-14.7)
[2023-10-07 13:52] LABS: Partial Thromboplastin Time 33.3 SECONDS (22.3-36.8)
[2023-10-07 14:18] LABS: Add Urine Microscopic? YES; Appearance Urine Clear (Clear); Bacteria Urine None Seen /hpf; Bilirubin Urine 1+ (Negative); Blood Urine Negative (Negative); Color Urine Dark Yellow (Yellow); Glucose Urine UA Negative (Negative); Hyaline Casts Urine Present /lpf; Ketones Urine Trace mg/dL (Negative); Leukocyte Esterase Ur Trace LEU/UL (Negative); Need Manual Microscopic Reviewed; Nitrate Urine Negative (Negative); Non Pathogenic Casts >20; Protein Urine 2+ mg/dL (Negative); RBC Urine 0-2 /hpf (0-2); Specific Grav Ur 1.023 (1.001-1.035); Squamous Epithelial Cell Urine Occasional /hpf (Few); WBC Urine 0-5 /hpf; pH Urine 5.5 (5.0-9.0)
--- NOTE | 2023-10-07 14:51 | PC.NURSE ---
Cardizem drip increased to 15mg/hr. Pt denies any increase in SOB or CP.Dr. Adhikari informed of increase in rate.
--- NOTE | 2023-10-07 16:10 | ECG_ITS ---
Measurements Intervals [place] Rate: 125 P: [place]: 0 QRS: 15 QRSD: 84 T: 133 QT: 300 QTc: 433 Interpretive Statements ATRIAL FIBRILLATION WITH RAPID VENTRICULAR RESPONSE NONSPECIFIC ST & T-WAVE ABNORMALITY- DIFFUSE LEADS BASELINE ARTIFACT- I, III, AVR, AVL, AVF ABNORMAL ECG COMPARED TO ECG 10/07/2023 12:32:25 NO SIGNIFICANT CHANGES Electronically Signed On 10-07-2023 17:06:02 CDT by Watson Knapp D.O.
--- NOTE | 2023-10-07 16:11 | PM.IMHP ---
H&P: HPI History of Present Illness Date/Time: 10/07/23 18:00 Chief Complaint: Shortness of breath and fast heart rate. Narrative: This is a 78-year-old female with history of hypertension, dyslipidemia, asthma, psoriasis, rhabdomyolysis, depression, and anxiety who presented to the emergency department for evaluation of shortness of breath and fast heart rate. The patient provides the following history. She gives a 1 week history of shortness of breath with exertion and racing heart which has been nearly constant. Her automated blood pressure cuff has showed that her heart rate has been up to 184 beats per minute. She has a and mild cough which is occasionally productive of clear sputum and she also endorses mild wheezing which is temporarily improved after using her inhalers. She is fatigued and has been getting a bit lightheaded upon standing. Due to ongoing symptoms she decided to come in today for evaluation. She denies fall, syncope, near syncope, chest pain, pleuritic pain, orthopnea, paroxysmal nocturnal dyspnea, edema, calf pain, nausea, and vomiting. She also denies fever, chills, and sweats. In the ED: She was afebrile on arrival with stable blood pressures. EKG showed atrial fibrillation with rapid ventricular response. Labs were significant for WBC count of 12.5, BUN 20, creatinine 0.90, lactic acid 1.3, AST 93, ALT 193, alkaline phosphatase 129, troponin less than 0.012, proBNP 5530, TSH 0.795. She tested negative for influenza, RSV, and COVID. Chest x-ray showed small right pleural effusion versus pleural thickening with mild right atelectasis versus scarring at the right lung base. She was started diltiazem drip and she is being admitted to the IMU for further treatment and evaluation. Review of Systems Review of Systems: Twelve systems were reviewed and are negative except for as per HPI. FORMERLY [facility] Past Medical History Medical History (Updated 10/07/23 @ 16:29 by Kathy Qiu PA-C) Asthma Depression with anxiety Hyperlipidemia Hypertension Psoriasis Rhabdomyolysis (07/2022) Family History Family History Sibling Diabetes mellitus Family history of liver disease Other Family history of arthritis Family history of congenital heart disease Family history of malignant neoplasm Hypertension Social History Social History (Updated 10/07/23 @ 16:19 by Kathy Qiu PA-C) Social History: Surrogate medical decision maker: Saqib Stratton, sibling. Code status: Full code. Smoking packs per day: 1 Smoking cigarettes per day: 20.0 Years smoked: 60 Smoking pack-years: 60.00 Smoking status: Current every day smoker Tobacco type: cigarettes Alcohol intake: never Substance use: never Substance use type: does not use Do You Feel Safe in your Home?: Yes Lack of Transportation: No Lack of Food: Never True Current Housing: I Do Not Have Housing Concerned About Future Housing: No Difficulty Paying Gas/Electric Bills: No Difficulty Paying for Meds: No Currently Unemployed: No Education: High School Diploma/GED Difficulty w/ Childcare or Family Care: No Spiritual care concerns: No Meds Home Medications and Allergies Home Medications Medication Instructions Recorded Confirmed Type amlodipine 5 mg tablet 5 mg PO DAILY 08/24/22 10/07/23 History atenolol 50 mg tablet 50 mg PO DAILY 08/24/22 10/07/23 History budesonide-formoterol HFA 160 1 puff inhalation BID 08/24/22 10/07/23 History mcg-4.5 mcg/actuation aerosol inhaler (Symbicort) celecoxib 100 mg capsule 100 mg PO DAILY 08/24/22 10/07/23 History duloxetine 30 mg capsule,delayed 30 mg PO DAILY 08/24/22 10/07/23 History release lovastatin 10 mg tablet 10 mg PO QHS 08/24/22 10/07/23 History aspirin 81 mg capsule 81 mg PO DAILY 08/25/22 10/07/23 History cholecalciferol (vitamin D3) 25 25 mcg PO DAILY 08/25/22 10/07/23 History mcg (1,000 unit) tabl
[2023-10-07 16:48] LABS: Creatine Kinase 44 U/L (30-135)
[2023-10-07 17:02] LABS: Troponin I < 0.012 ng/mL (0.000-0.034)
[2023-10-07] MEDS: ENOXAPARIN 120 MG/0.8 ML SYRINGE SUB-Q (17:15)
[2023-10-07 17:21] LABS: Thyroid Stimulating Hormone Reflex 0.795 uIU/mL (0.465-4.68)
[2023-10-07 18:55] LABS: Troponin I < 0.012 ng/mL (0.000-0.034)
[2023-10-07] MEDS: dilTIAZem 100 MG/100 ML 100 MG/100 ML BAG 15 MG IV CONT (20:45)
[2023-10-07] MEDS: LORazepam (*CRX) 1 MG TABLET PO (21:41)
[2023-10-07] MEDS: IPRATROPIUM 0.5 MG/ALBUTEROL SULFATE 2.5 MG AMPUL.NEB 3 ML INHALATION (23:00)
[2023-10-07] MEDS: NICOTINE (*PBKC) 21 MG PATCH 1 PATCH TRANSDERM (23:15)
[2023-10-08] VITALS (28 sets, daily range): BP systolic 113–130; BP diastolic 64–92; PULSE 78–134; RESP 20–22; TEMP 36.5–36.9; O2SAT 95–97
--- NOTE | 2023-10-08 | ECHO_ITS ---
Patient Info Name: Merly Stratton Age: 78 years : 1945 Gender: Female Ht: 67 in Wt: 291 lbs BSA: 2.57 m2 HR: 116 bpm BP: 120 / 86 mmHg Heart Rhythm: Atrial Fibrillation Technical Quality: Fair Exam Date: 10/08/2023 8:46 AM Exam Location: Echo Lab Patient Status: Outpatient Admit Date: 10/07/2023 Staff Ordering Physician: Kathy Qiu PA-C Creative Project Manager: Mercedes Cesar RDCS Attending Provider: Urmila Campoverde DO Referring Physician: Lazarus GAONA; Exam Type: CA echo doppler color flow Study Info Indications - new onset afib, htn, hld Complete two-dimensional, color flow and Doppler transthoracic echocardiogram is performed. Summary 1. Complete two-dimensional, color flow and Doppler transthoracic echocardiogram is performed. 2. Left ventricular chamber dimension is normal. 3. Left ventricular systolic function is normal, estimated at 55-60%. 4. There is moderate concentric increased left ventricular wall thickness. 5. The left ventricular diastolic function is abnormal. 6. E/e' 11 is mildly elevated. 7. Atrial fibrillation. 8. Right ventricular chamber dimension is mildly enlarged. 9. Right ventricular systolic function is moderately reduced with abnormal TAPSE 0.9 cm. 10. Left atrial chamber dimension is moderately enlarged. 11. Right atrial chamber dimension is mildly enlarged. 12. There is mild aortic valve sclerosis. 13. There is mild tricuspid valve regurgitation. 14. No pulmonary hypertension, estimated pulmonary arterial systolic pressure is 31 mmHg. 15. There is trace pulmonic regurgitation. Left Ventricle Atrial fibrillation. E/e' 11 is mildly elevated. Left ventricular chamber dimension is normal. Left ventricular systolic function is normal, estimated at 55-60%. There is moderate concentric increased left ventricular wall thickness. The left ventricular diastolic function is abnormal. Right Ventricle Right ventricular systolic function is moderately reduced with abnormal TAPSE 0.9 cm. Right ventricular chamber dimension is mildly enlarged. Left Atria Left atrial chamber dimension is moderately enlarged. Right Atria Right atrial chamber dimension is mildly enlarged. Aortic Valve The aortic valve is trileaflet. There is mild aortic valve sclerosis. There is no aortic valve stenosis. There is no aortic valve regurgitation. Pulmonic Valve There is trace pulmonic regurgitation. Mitral Valve There is no mitral valve stenosis. There is no mitral valve regurgitation. Tricuspid Valve There is mild tricuspid valve regurgitation. No pulmonary hypertension, estimated pulmonary arterial systolic pressure is 31 mmHg. Pericardium/Pleural There is no pericardial effusion. Inferior Vena Cava Normal inferior vena cava with >50% collapse upon inspiration consistent with normal right atrial pressure, 5 mmHg. Aorta The aortic root size at the sinus of Valsalva is normal. Left Ventricular Outflow Tract Name Value Normal LVOT 2D LVOT Diameter 2.0 cm LVOT Doppler LVOT Peak Gradient 2 mmHg LVOT Mean Gradient 1 mmHg LVOT VTI 12 cm LVOT VTI/AV VTI Ratio
[2023-10-08] MEDS: dilTIAZem 100 MG/100 ML 100 MG/100 ML BAG 15 MG IV CONT ×3 (02:34→19:40)
[2023-10-08] MEDS: LORazepam (*CRX) 1 MG TABLET PO ×3 (04:23→16:43)
[2023-10-08] MEDS: ENOXAPARIN 120 MG/0.8 ML SYRINGE SUB-Q ×2 (04:23→16:44)
[2023-10-08] MEDS: FLUTICASONE/SALMETEROL 115-21 MCG INHALER 1 PUFF 2 PUFF INHALATION ×2 (07:58→20:20)
--- NOTE | 2023-10-08 08:37 | PM.IMPN ---
Progress Note: A&P Assessment and Plan (1) COPD (chronic obstructive pulmonary disease): Code(s): J44.9 - Chronic obstructive pulmonary disease, unspecified Status: Acute (2) Transaminitis: Code(s): R74.01 - Elevation of levels of liver transaminase levels Status: Acute (3) Atrial fibrillation with rapid ventricular response: Code(s): I48.91 - Unspecified atrial fibrillation Status: Acute (4) Psoriasis: Code(s): L40.9 - Psoriasis, unspecified Status: Acute (5) Hypertension: Code(s): I10 - Essential (primary) hypertension Status: Acute (6) Hyperlipidemia: Code(s): E78.5 - Hyperlipidemia, unspecified Status: Acute (7) Leukocytosis: Code(s): D72.829 - Elevated white blood cell count, unspecified Status: Acute (8) Tobacco abuse: Code(s): Z72.0 - Tobacco use Status: Acute Plan 78-year-old female with a past medical history obesity, COPD, depression and anxiety, hypertension, hyperlipidemia, psoriasis, history of rhabdomyolysis, active tobacco abuse presenting with racing heart rate. Admitted on 10/07/2023 for atrial fibrillation with RVR AFib with RVR -pending echo. TSH within normal limit. Encourage patient to stop smoking, she reports she was done since Saturday. -currently on diltiazem IV 15 milligrams/hour however she remains in AFib with RVR to the 130s and going up to 140s when standing and walking. Consult Cardiology. She is on atenolol 50 mg p.o. q.day at home -Lovenox therapeutic dosing b.i.d. has been started Transaminitis -she is unaware of liver issues. He has had chronic transaminitis but as far as we can ascertain this has not been investigated aside from an infectious hepatitis screening panel which was negative. Liver ultrasound pending. Could be acute on chronic due to AFib with RVR. Also given Solu-Medrol 125 mg IV x1 in the ER. Should have close follow-up with PCP and biztalk architect. Elevated BNP -patient was prescribed Lasix outpatient but did not want to take it due to her incontinence. BNP elevation may be due to AFib with RVR and aside from that she appears compensated. Pending echo Leukocytosis -be reactive. No other indication of infectious etiology. Recheck and check procalcitonin Tobacco abuse -nicotine patch. Counseling provided COPD -diminished lung sounds. Given Solu-Medrol and neb treatment in the ER. Considering her shortness of breath may be due to AFib with RVR and beta agonist could worsen her RVR will hold off for now. Hypertension -controlled. Treat AFib Right pleural effusion -small, at the moment appears to be in significant. Continue to monitor FEN: Saline lock IV. GI prophylaxis: Not indicated DVT prophylaxis: On therapeutic dosing Lovenox for AFib high chads Vasc score Lines: Peripheral IV Code Status: Full code Dispo: Stable in IMU. Continue telemetry Subjective Date/time seen: 10/08/23 08:37 Interval history: No acute overnight events. Patient is up from bathroom walking by herself. Heart rate 144 on telemetry. She reports shortness of breath which has been going on for some time. Quit smoking on Saturday. Review of Systems Review of Systems: All systems reviewed & are unremarkable except as noted in HPI and below (Subjective) Exam Const: General: comfortable and no acute distress Other: Obese. A&O x3. Psoriatic plaques. Eyes: Pupils: Equal, round and reactive pupils present Neck: Neck: supple Resp: Effort & Inspection: normal respiratory effort Auscultation: diminished lung sounds Cardio: Rate: tachycardic Rhythm: abnormal rhythm Heart sounds: no gallops, no murmurs and no rubs GI: GI Palp: Yes Soft to palpation and No Tenderness to palpation present (GI) Extrem: General: no edema Objective Data Vital Signs Vital Signs: Vital Signs - 24 hr 10/07/23 12:25 10/07/23 12:25 10/07/23 12:27 Temperature 97.4 F L Pu
[2023-10-08 08:54] LABS: Basophils Percent Auto 0.1 % (0.2-1.2); Hematocrit 44.5 % (37.0-47.0); Immature Granulocyte Absolute 0.06 K/mm3 (0.00-0.031); Immature Granulocyte Percent A 0.4 % (0-0.5); Lymphocytes Absolute Auto 0.94 K/mm3 (0.9-3.2); Lymphocytes Percent Auto 6.1 % (18.3-44.2); Mean Corpuscular HGB Conc 31.5 g/dl (32-36); Mean Corpuscular Hemoglobin 30.9 pg (26-34); Mean Corpuscular Volume 98.2 fl (80-100); Mean Platelet Volume 10.5 fl (7.4-10.4); Monocytes Absolute Auto 0.8 K/mm3 (0.1-0.6); Neutrophils Absolute Auto 13.6 K/mm3 (1.3-6.7); Neutrophils Percent Auto 88.4 % (45.5-73.1); Platelet Count Result 306 k/mm3 (150-375); Red Blood Count 4.53 M/mm3 (4.2-5.4); White Blood Count 15.4 K/mm3 (4.5-10.0)
[2023-10-08 09:04] LABS: Alanine Aminotransferase 180 U/L (6-35); Albumin Level 4.3 g/dL (3.5-5.1); Alkaline Phosphatase 136 U/L (38-126); Anion Gap 11 mmol/L (8-16); Aspartate Amino Transferase 59 U/L (14-36); Blood Urea Nitrogen 27 mg/dL (7-17); Calcium 9.5 mg/dL (8.4-10.2); Carbon Dioxide 23 mmol/L (22-30); Chloride 107 mmol/L (98-107); Estimated CRCL calculation 51 ml/min; Estimated Glomerular Filt Rate 44; Glucose 147 mg/dL (65-110); Potassium 4.3 mmol/L (3.4-5.0); Sodium 141 mmol/L (137-145)
[2023-10-08 09:37] LABS: Procalcitonin 0.1 ng/mL
--- NOTE | 2023-10-08 10:30 | PM.CNCAR ---
Assessment and Plan Assessment and plan (1) Atrial fibrillation with rapid ventricular response: Code(s): I48.91 - Unspecified atrial fibrillation Status: Acute Assessment and Plan: Patient presents with a sensation of rapid heartbeat and has been found to be in atrial fibrillation with rapid ventricular response. This is a new diagnosis for the patient. Chronicity unknown, but based on history probably began 3-4 weeks ago. Since she has probably been in AF for several weeks and not anticoagulated, will pursue rate control for now Continue diltiazem gtt at 15mg/hr, shift atenolol to metoprolol 75mg b.i.d. and give a one time dose of metoprolol 12.5mg now If we are unable to rate control her, can consider KATE guided cardioversion with anesthesia (obesity, prob. NAUN) Check ApneaLink TSH WNL Continue telemetry Close BP monitoring with medication adjustments for rate control Echo is pending (2) Hyperlipidemia: Code(s): E78.5 - Hyperlipidemia, unspecified Status: Acute Assessment and Plan: Continue statin (3) Hypertension: Code(s): I10 - Essential (primary) hypertension Status: Acute Assessment and Plan: At goal (4) Tobacco abuse: Code(s): Z72.0 - Tobacco use Status: Acute Assessment and Plan: She quit smoking last 09/29/23. Continue nicotine patch. History of Present Illness History of Present Illness Consult date/time: 10/08/23 10:30 Requesting physician: Lena Asencio MD Consult reason: atrial fibrillation Reason For Visit: Afib w RVR Narrative: Merly Stratton is a 78 year old female with no previous cardiac history who presents to the hospital with complaints of racing heartbeat and shortness of breath with exertion. Patient states she has been feeling a rapid heartbeat for about 1 month. She states she was hoping that the rapid heartbeat would just go away but when she became more and more short of breath she decided that she needed to be evaluated. She has been found to be in atrial fibrillation with rapid ventricular response. She has been placed a Diltiazem drip and her heart rate remains elevated up to the 140's intermittently. She can still feel her heart racing but it is no longer constant. She denies any shortness of breath or chest pain. Review of Systems Review of Systems: All systems reviewed & are unremarkable except as noted in HPI and below PMFSH Past Medical History Medical History Asthma COPD (chronic obstructive pulmonary disease) Depression with anxiety Hyperlipidemia Hypertension Psoriasis Rhabdomyolysis (07/2022) Tobacco abuse Family History Family History Sibling Diabetes mellitus Family history of liver disease Other Family history of arthritis Family history of congenital heart disease Family history of malignant neoplasm Hypertension Social History Social History Social History: Surrogate medical decision maker: Saqib Koenigo, sibling. Code status: Full code. Smoking packs per day: 1 Smoking cigarettes per day: 20.0 Years smoked: 60 Smoking pack-years: 60.00 Smoking status: Current every day smoker Tobacco type: cigarettes Alcohol intake: never Substance use: never Substance use type: does not use Do You Feel Safe in your Home?: Yes Lack of Transportation: No Lack of Food: Never True Current Housing: I Do Not Have Housing Concerned About Future Housing: No Difficulty Paying Gas/Electric Bills: No Difficulty Paying for Meds: No Currently Unemployed: No Education: High School Diploma/GED Difficulty w/ Childcare or Family Care: No Spiritual care concerns: No Meds Home Medications and Allergies Home Medications Medication Instructions Recorded Confirmed Type amlod
[2023-10-08] MEDS: DULoxetine HCL 30 MG CAPSULE.DR PO (10:49)
[2023-10-08] MEDS: ASPIRIN 81 MG ENTERIC TABLET PO (10:50)
[2023-10-08] MEDS: CHOLECALCIFEROL 1,000 UNITS TABLET 1000 UNITS PO (10:50)
[2023-10-08] MEDS: atenoloL 50 MG TABLET PO (10:50)
[2023-10-08] MEDS: METOPROLOL TARTRATE 12.5 MG TABLET PO (12:30)
[2023-10-08] MEDS: NICOTINE (*PBKC) 21 MG PATCH 1 PATCH TRANSDERM (13:45)
[2023-10-08] MEDS: METOPROLOL TARTRATE TAB 25 MG, METOPROLOL TARTRATE TAB 50 MG 75 MG PO (20:37)
[2023-10-08] MEDS: LOVASTATIN 10 MG TABLET PO (20:37)
[2023-10-09] VITALS (26 sets, daily range): BP systolic 111–136; BP diastolic 52–89; PULSE 59–139; RESP 20–22; TEMP 36.3–36.7; O2SAT 94–97
[2023-10-09] MEDS: LORazepam (*CRX) 1 MG TABLET PO ×4 (00:03→22:07)
[2023-10-09] MEDS: dilTIAZem 100 MG/100 ML 100 MG/100 ML BAG 15 MG IV CONT (02:33)
[2023-10-09] MEDS: ENOXAPARIN 120 MG/0.8 ML SYRINGE SUB-Q (06:26)
[2023-10-09] MEDS: FLUTICASONE/SALMETEROL 115-21 MCG INHALER 1 PUFF 2 PUFF INHALATION ×2 (08:21→19:35)
[2023-10-09] MEDS: DULoxetine HCL 30 MG CAPSULE.DR PO (08:46)
[2023-10-09] MEDS: CHOLECALCIFEROL 1,000 UNITS TABLET 1000 UNITS PO (08:46)
[2023-10-09] MEDS: ASPIRIN 81 MG ENTERIC TABLET PO (08:46)
[2023-10-09] MEDS: METOPROLOL TARTRATE TAB 25 MG, METOPROLOL TARTRATE TAB 50 MG 75 MG PO ×2 (08:46→20:46)
--- NOTE | 2023-10-09 09:43 | PM.IMPN ---
Progress Note: A&P Assessment and Plan (1) COPD (chronic obstructive pulmonary disease): Code(s): J44.9 - Chronic obstructive pulmonary disease, unspecified Status: Acute (2) Transaminitis: Code(s): R74.01 - Elevation of levels of liver transaminase levels Status: Acute (3) Atrial fibrillation with rapid ventricular response: Code(s): I48.91 - Unspecified atrial fibrillation Status: Acute (4) Psoriasis: Code(s): L40.9 - Psoriasis, unspecified Status: Acute (5) Hypertension: Code(s): I10 - Essential (primary) hypertension Status: Acute (6) Hyperlipidemia: Code(s): E78.5 - Hyperlipidemia, unspecified Status: Acute (7) Leukocytosis: Code(s): D72.829 - Elevated white blood cell count, unspecified Status: Acute (8) Tobacco abuse: Code(s): Z72.0 - Tobacco use Status: Acute Plan 78-year-old female with a past medical history obesity, COPD, depression and anxiety, hypertension, hyperlipidemia, psoriasis, history of rhabdomyolysis, active tobacco abuse presenting with racing heart rate. Admitted on 10/07/2023 for atrial fibrillation with RVR AFib with RVR -echo noted. TSH within normal limit. Encourage patient to stop smoking, she reports she was done since Saturday which is the day prior to admission. -currently on diltiazem IV 15 milligrams/hour. Her RVR is slightly improved. Continue management per Cardiology. On 10/07 her home dose atenolol was DC the metoprolol tartrate 75 mg p.o. b.i.d. was started. -Lovenox therapeutic dosing b.i.d. has been started Transaminitis -she is unaware of liver issues. He has had chronic transaminitis but as far as we can ascertain this has not been investigated aside from an infectious hepatitis screening panel which was negative. Liver ultrasound unrevealing. Could be acute on chronic due to AFib with RVR. Also given Solu-Medrol 125 mg IV x1 in the ER. Should have close follow-up with PCP and spray stainer. Elevated BNP -patient was prescribed Lasix outpatient but did not want to take it due to her incontinence. BNP elevation may be due to AFib with RVR and aside from that she appears compensated. Surface echo conducted on 10/07 demonstrating normal EF at 55-60% with moderate concentric increased left ventricular wall thickness and left ventricular diastolic dysfunction. Leukocytosis -increased on 10/08 although procalcitonin negative. This could be due to steroid use or bronchitis. Continue to monitor. Tobacco abuse -nicotine patch. Counseling provided COPD -given Solu-Medrol and neb treatment in the ER. Treatment was not continued thereafter. For on 10/08 her wheezing is more appreciated and she is now complaining of increasing cough and white sputum production with shortness of breath. Start prednisone 40 mg p.o. q.day and azithromycin. Hypertropia nebs q.6 hours. For now will hold off on beta agonist as to not further worsen her atrial fibrillation with RVR. COVID flu RSV negative. Hypertension -controlled. Treat AFib Right pleural effusion -small, at the moment appears to be in significant. Continue to monitor FEN: Saline lock IV. Heart healthy diet GI prophylaxis: Not indicated DVT prophylaxis: On therapeutic dosing Lovenox for AFib high chads Vasc score Lines: Peripheral IV Code Status: Full code Dispo: Stable in IMU. Transfer to medical floor. Continue telemetry. Subjective Date/time seen: 10/09/23 09:43 Interval history: No acute overnight events. Patient reports distress breathing with a cough and white sputum production. This is more than her usual. She denies fever or chills. Denies chest pain abdominal pain nausea vomiting diarrhea. Review of Systems Review of Systems: All systems reviewed & are unremarkable except as noted in HPI and below (Subjective) Exam Const: General: comfortable and no acute distress Other: A&O x3. Obese. Eyes
--- NOTE | 2023-10-09 10:23 | PM.PNCARD ---
Progress Note: A&P Assessment and Plan (1) Atrial fibrillation with rapid ventricular response: Code(s): I48.91 - Unspecified atrial fibrillation Status: Acute Assessment and Plan: Patient presented with a sensation of rapid heartbeat and has been found to be in atrial fibrillation with rapid ventricular response.? This is a new diagnosis for the patient.? Chronicity unknown, but based on history probably began 3-4 weeks ago. Echocardiogram 10/07 shows LVEF 55-60%, left atrium is moderately enlarged, right atrium is mildly enlarged. Since she has probably been in AF for several weeks and not anticoagulated, will pursue rate control for now Continue Metoprolol 75mg BID. Stop Diltiazem drip, start PO Diltiazem. Will switch her therapeutic Lovenox to Eliquis 5mg BID. If we are unable to rate control her, will need KATE guided cardioversion with Anesthesia team (obesity, prob. NAUN) Check ApneaLink TSH WNL Continue telemetry Close BP monitoring with medication adjustments for rate control (2) Hyperlipidemia: Code(s): E78.5 - Hyperlipidemia, unspecified Status: Acute Assessment and Plan: Continue statin (3) Hypertension: Code(s): I10 - Essential (primary) hypertension Status: Acute Assessment and Plan: At goal (4) Tobacco abuse: Code(s): Z72.0 - Tobacco use Status: Acute Assessment and Plan: She quit smoking last 09/29/23.? Continue Nicotine patch. Plan Recommendations and plan discussed with Hospitalist. Subjective Date/time seen: 10/09/23 10:23 Interval history: Reason for visit: Atrial fibrillation with RVR HPI: Merly Stratton is a 78 year old female with no previous cardiac history who presents to the hospital with complaints of racing heartbeat and shortness of breath with exertion.? Patient states she has been feeling a rapid heartbeat for about 1 month.? She states she was hoping that the rapid heartbeat would just go away but when she became more and more short of breath she decided that she needed to be evaluated. She has been found to be in atrial fibrillation with rapid ventricular response. ? She has been placed a Diltiazem drip and her heart rate remains elevated up to the 140's intermittently.? She can still feel her heart racing but it is no longer constant.? She denies any shortness of breath or chest pain. Date of service 10/08: She is feeling okay. Has occasionally RVR, however, rates are controlled at the time of my evaluation. Review of Systems Review of Systems: All systems reviewed & are unremarkable except as noted in HPI and below (HPI) Exam Const: General: no acute distress HENMT: Mouth: Yes dry mucous membranes Eyes: General: appearance normal, both eyes and all related structures Sclera: sclerae normal Resp: Effort & Inspection: normal respiratory effort Cardio: Rhythm: abnormal rhythm irregularly irregular Skin: Other: Rash noted on arms, appears to be psoriasis Neuro: Speech: normal speech Psych: Mental Status: mental status grossly normal Affect: normal affect Objective Data Vital Signs Vital Signs: Vital Signs - 24 hr 10/08/23 10:50 10/08/23 12:00 10/08/23 12:00 Temperature 36.6 C Pulse Rate 110 H 78 Respiratory Rate 22 H Blood Pressure 118/92 H Pulse Oximetry 95 Oxygen Delivery Room Air Fraction of Inspired Oxygen 10/08/23 12:00 10/08/23 12:30 10/08/23 14:00 Temperature Pulse Rate 124 H 118 H 118 H Respiratory Rate Blood Pressure Pulse Oximetry Oxygen Delivery Fraction of Inspired Oxygen 10/08/23 16:00 10/08/23 16:00 10/08/23 16:00 Temperature 36.8 C Pulse Rate 112 H 116 H Respiratory Rate 20 Blood Pressure 124/75 Pulse Oximetry 97 Oxygen Delivery Room Air Fraction of Inspired Oxygen 10/08/23 19:22 10/08/23 18:00 10/08/23 12:00 Temperature 36.7 C Pulse Rate 129 H 115 H 115 H Respiratory Rate 22 H
[2023-10-09] MEDS: AZITHROMYCIN 250 MG TABLET 500 MG PO (10:42)
[2023-10-09] MEDS: dilTIAZem HCL CD 240 MG CAP.24HR PO (10:42)
[2023-10-09] MEDS: predniSONE 20 MG TABLET 40 MG PO (10:43)
[2023-10-09] MEDS: IPRATROPIUM BR 0.02% INH SOLN 0.5 MG/2.5 ML VIAL INHALATION ×2 (13:48→19:35)
[2023-10-09] MEDS: LOVASTATIN 10 MG TABLET PO (20:47)
[2023-10-09] MEDS: APIXABAN 5 MG TABLET PO (20:47)
[2023-10-10] VITALS (27 sets, daily range): BP systolic 94–130; BP diastolic 66–98; PULSE 105–138; RESP 18–22; TEMP 36.1–36.6; O2SAT 93–97
--- NOTE | 2023-10-10 02:30 | PCRCNOTE ---
Pt did not want 0200 tx on 10/10/23 if she was not awake. Pt was asleep when RT arrived for her tx. Next tx will be given as scheduled.
[2023-10-10] MEDS: IPRATROPIUM BR 0.02% INH SOLN 0.5 MG/2.5 ML VIAL INHALATION ×4 (03:15→20:40)
--- NOTE | 2023-10-10 03:25 | PCRCNOTE ---
Patient called for her 0200 breathing tx at 0300. Pt states she woke up feeling SOB. Rt did not administer pt 0200 tx at the scheduled time due to pt not wanting to be woken for it. Pt is now wanting her tx, therefore, RT administered it.
[2023-10-10] MEDS: LORazepam (*CRX) 1 MG TABLET PO ×3 (04:18→20:26)
[2023-10-10 04:50] LABS: Basophils Percent Auto 0.2 % (0.2-1.2); Eosinophils Percent Auto 0.1 % (0-4.4); Hematocrit 40.2 % (37.0-47.0); Hemoglobin 12.9 g/dL (12.0-15.0); Immature Granulocyte Absolute 0.06 K/mm3 (0.00-0.031); Immature Granulocyte Percent A 0.4 % (0-0.5); Lymphocytes Absolute Auto 1.03 K/mm3 (0.9-3.2); Lymphocytes Percent Auto 7.5 % (18.3-44.2); Mean Corpuscular HGB Conc 32.1 g/dl (32-36); Mean Corpuscular Hemoglobin 30.9 pg (26-34); Mean Corpuscular Volume 96.2 fl (80-100); Mean Platelet Volume 11.1 fl (7.4-10.4); Monocytes Absolute Auto 0.7 K/mm3 (0.1-0.6); Monocytes Percent Auto 5.1 % (2.6-8.5); Neutrophils Absolute Auto 11.9 K/mm3 (1.3-6.7); Neutrophils Percent Auto 86.7 % (45.5-73.1); Platelet Count Result 293 k/mm3 (150-375); Red Blood Count 4.18 M/mm3 (4.2-5.4); Red Cell Distribution Width 13.2 % (11.5-14.5); White Blood Count 13.7 K/mm3 (4.5-10.0)
[2023-10-10 05:07] LABS: Anion Gap 8 mmol/L (8-16); Blood Urea Nitrogen 37 mg/dL (7-17); Calcium 9.3 mg/dL (8.4-10.2); Carbon Dioxide 23 mmol/L (22-30); Chloride 108 mmol/L (98-107); Estimated CRCL calculation 44 ml/min; Estimated Glomerular Filt Rate 37; Glucose 139 mg/dL (65-110); Magnesium 2.6 mg/dL (1.6-2.3); Potassium 4.3 mmol/L (3.4-5.0); Sodium 139 mmol/L (137-145)
[2023-10-10 05:08] LABS: Alanine Aminotransferase 138 U/L (6-35); Albumin Level 3.9 g/dL (3.5-5.1); Alkaline Phosphatase 109 U/L (38-126); Aspartate Amino Transferase 43 U/L (14-36); Bilirubin,Total 0.6 mg/dL (0.2-1.3)
[2023-10-10 06:09] LABS: Procalcitonin 0.1 ng/mL
[2023-10-10] MEDS: FLUTICASONE/SALMETEROL 115-21 MCG INHALER 1 PUFF 2 PUFF INHALATION ×2 (08:23→20:40)
[2023-10-10] MEDS: METOPROLOL TARTRATE TAB 25 MG, METOPROLOL TARTRATE TAB 50 MG 75 MG PO ×3 (08:53→23:19)
[2023-10-10] MEDS: APIXABAN 5 MG TABLET PO ×2 (08:54→20:26)
[2023-10-10] MEDS: AZITHROMYCIN 250 MG TABLET PO (08:55)
[2023-10-10] MEDS: ASPIRIN 81 MG ENTERIC TABLET PO (08:55)
[2023-10-10] MEDS: DULoxetine HCL 30 MG CAPSULE.DR PO (08:57)
[2023-10-10] MEDS: dilTIAZem HCL CD 240 MG CAP.24HR PO (08:58)
[2023-10-10] MEDS: predniSONE 20 MG TABLET 40 MG PO (08:59)
[2023-10-10] MEDS: CHOLECALCIFEROL 1,000 UNITS TABLET 1000 UNITS PO (09:01)
--- NOTE | 2023-10-10 10:02 | PM.IMPN ---
Progress Note: A&P Assessment and Plan (1) COPD (chronic obstructive pulmonary disease): Code(s): J44.9 - Chronic obstructive pulmonary disease, unspecified Status: Acute (2) Transaminitis: Code(s): R74.01 - Elevation of levels of liver transaminase levels Status: Acute (3) Atrial fibrillation with rapid ventricular response: Code(s): I48.91 - Unspecified atrial fibrillation Status: Acute (4) Psoriasis: Code(s): L40.9 - Psoriasis, unspecified Status: Acute (5) Hypertension: Code(s): I10 - Essential (primary) hypertension Status: Acute (6) Hyperlipidemia: Code(s): E78.5 - Hyperlipidemia, unspecified Status: Acute (7) Leukocytosis: Code(s): D72.829 - Elevated white blood cell count, unspecified Status: Acute (8) Tobacco abuse: Code(s): Z72.0 - Tobacco use Status: Acute Plan 78-year-old female with a past medical history obesity, COPD, depression and anxiety, hypertension, hyperlipidemia, psoriasis, history of rhabdomyolysis, active tobacco abuse presenting with racing heart rate. Admitted on 10/07/2023 for atrial fibrillation with RVR AFib with RVR -echo noted. TSH within normal limit. Encourage patient to stop smoking, she reports she was done since Saturday which is the day prior to admission. -cardiology consulted -her home dose atenolol was changed to metoprolol. Rate control not achieved. Diltiazem p.o. started. Rate control still not achieved. Possible KATE today -Lovenox therapeutic dosing switch to Eliquis 5 mg p.o. b.i.d. Transaminitis -she is unaware of liver issues. He has had chronic transaminitis but as far as we can ascertain this has not been investigated aside from an infectious hepatitis screening panel which was negative. Liver ultrasound unrevealing. Could be acute on chronic due to AFib with RVR. Also given Solu-Medrol 125 mg IV x1 in the ER. Should have close follow-up with PCP and division officer [employer] department. Elevated BNP -patient was prescribed Lasix outpatient but did not want to take it due to her incontinence. BNP elevation may be due to AFib with RVR and aside from that she appears compensated. Surface echo conducted on 10/07 demonstrating normal EF at 55-60% with moderate concentric increased left ventricular wall thickness and left ventricular diastolic dysfunction. Leukocytosis -downtrending. This could be due to steroid use or bronchitis. Continue to monitor. SAVAGE -could be due to ATN versus hypovolemia versus AFib -start normal saline at a gentle dosing 75 cc/hour -check renal ultrasound and urinalysis. Urine sodium ordered as well COPD -given Solu-Medrol and neb treatment in the ER. Treatment was not continued thereafter. On 10/08 her wheezing is more appreciated and she is now complaining of increasing cough and white sputum production with shortness of breath. Start prednisone 40 mg p.o. q.day and azithromycin. Ipratropium nebs q.6 hours. For now will hold off on beta agonist as to not further worsen her atrial fibrillation with RVR. COVID flu RSV negative. -on October 09 she still has a slight wheeze and dyspnea on exertion. Continue above management. Hypertension -controlled. Treat AFib Right pleural effusion -small, at the moment appears to be in significant. Continue to monitor Tobacco abuse -nicotine patch. Counseling provided FEN: Normal saline. Heart healthy diet GI prophylaxis: Not indicated DVT prophylaxis: Eliquis Lines: Peripheral IV Code Status: Full code Dispo: Stable in IMU. Continue telemetry Subjective Date/time seen: 10/10/23 10:02 Interval history: No acute overnight events. The patient is talkative and provides much of her opinion on many arbitrarily subjects although she does not remember who I am for the 2nd day in a row. He complains of shortness of breath on exertion Review of Systems Review of Systems: All systems reviewed & are unremarkable
[2023-10-10] MEDS: SODIUM CHLORIDE 0.9% IV 1,000 ML 75 ML IV CONT ×2 (10:24→23:51)
--- NOTE | 2023-10-10 11:14 | PM.PNCARD ---
Progress Note: A&P Assessment and Plan (1) Atrial fibrillation with rapid ventricular response: Code(s): I48.91 - Unspecified atrial fibrillation Status: Acute Assessment and Plan: Patient presented with a sensation of rapid heartbeat and has been found to be in atrial fibrillation with rapid ventricular response.? This is a new diagnosis for the patient.? Chronicity unknown, but based on history probably began 3-4 weeks ago. Echocardiogram 10/07 shows LVEF 55-60%, left atrium is moderately enlarged, right atrium is mildly enlarged. Since she has probably been in AF for several weeks and not anticoagulated, will pursue rate control for now. Not well controlled on current regimen Increase Metoprolol 75mg q8h. Increase Diltiazem to 360mg daily Will give her a one time dose of digoxin 125mcg now and observe HR response. Continue Eliquis 5mg BID. May need to consider antiarrhythmic, though would like to avoid amiodarone given underlying lung disease. If we are unable to rate control her, will need KATE guided cardioversion with Anesthesia team (obesity, prob. NAUN) Check ApneaLink TSH WNL Continue telemetry Close BP monitoring with medication adjustments for rate control (2) Hyperlipidemia: Code(s): E78.5 - Hyperlipidemia, unspecified Status: Acute Assessment and Plan: Continue statin (3) Hypertension: Code(s): I10 - Essential (primary) hypertension Status: Acute Assessment and Plan: At goal (4) Tobacco abuse: Code(s): Z72.0 - Tobacco use Status: Acute Assessment and Plan: She quit smoking last 09/29/23.? Continue Nicotine patch. Plan Recommendations and plan discussed with Hospitalist. Subjective Date/time seen: 10/10/23 11:14 Interval history: Reason for visit: Atrial fibrillation with RVR HPI: Merly Stratton is a 78 year old female with no previous cardiac history who presents to the hospital with complaints of racing heartbeat and shortness of breath with exertion.? Patient states she has been feeling a rapid heartbeat for about 1 month.? She states she was hoping that the rapid heartbeat would just go away but when she became more and more short of breath she decided that she needed to be evaluated. She has been found to be in atrial fibrillation with rapid ventricular response. ? She has been placed a Diltiazem drip and her heart rate remains elevated up to the 140's intermittently.? She can still feel her heart racing but it is no longer constant.? She denies any shortness of breath or chest pain. Date of service 10/08: She is feeling okay. Has occasionally RVR, however, rates are controlled at the time of my evaluation. Date of service 10/10/2023: Feels good today. Heart rate is not well controlled at this point. She's not feeling palpitations or shortness of breath. Review of Systems Review of Systems: All systems reviewed & are unremarkable except as noted in HPI and below (HPI) Exam Const: General: comfortable, no acute distress, alert and awake Orientation/consciousness: patient oriented x3 HENMT: Head: normal to inspection Mouth: Yes dry mucous membranes Eyes: General: appearance normal, both eyes and all related structures Sclera: sclerae normal Pupils: Equal, round and reactive pupils present Neck: Neck: normal visual inspection, supple and no JVD Carotids: normal carotid upstroke Resp: Effort & Inspection: normal respiratory effort Auscultation: clear to auscultation bilaterally, wheezes left lower and diminished lung sounds Cardio: Rate: tachycardic Rhythm: regular rhythm and abnormal rhythm irregularly irregular Heart sounds: S1 normal heart sound present, S2 normal heart sound present and no murmurs GI: Auscultation: normal bowel sounds Skin: General skin exam: normal color and lesion (psoriasis plaques) Lesions: lesion noted (psoriasis plaques) Neuro: General: patient oriented x3 Cranial nerves: Yes Eq
[2023-10-10] MEDS: DIGOXIN TAB 125 MCG TABLET PO (11:51)
--- NOTE | 2023-10-10 14:59 | PC.NURSE ---
On 10/10/23, the student, [Kavin Argueta ], provided care and completed [facility] documentation on this patient. I have reviewed the student's documentation and agree with the findings.
[2023-10-10] MEDS: LOVASTATIN 10 MG TABLET PO (20:26)
[2023-10-10 21:14] LABS: Appearance Urine Clear (Clear); Bilirubin Urine Negative (Negative); Blood Urine Negative (Negative); Color Urine Yellow (Yellow); Glucose Urine UA Negative (Negative); Ketones Urine Negative (Negative); Leukocyte Esterase Ur Negative LEU/UL (Negative); Nitrate Urine Negative (Negative); Protein Urine Negative (Negative); Specific Grav Ur 1.015 (1.001-1.035); pH Urine 5.5 (5.0-9.0)
[2023-10-10 21:16] LABS: Add Urine Microscopic? NO
[2023-10-10 21:19] LABS: Sodium Urine Random 52 meq/L
[2023-10-11] VITALS (30 sets, daily range): BP systolic 96–138; BP diastolic 65–99; PULSE 53–141; RESP 12–24; TEMP 36.2–36.4; O2SAT 88–97
--- NOTE | 2023-10-11 | ECHO_ITS ---
Patient Info Name: Merly Stratton Age: 78 years : 1945 Gender: Female Ht: 67 in Wt: 289 lbs BSA: 2.56 m2 HR: 115 bpm BP: 140 / 83 mmHg Heart Rhythm: Atrial Fibrillation Technical Quality: Good Exam Date: 10/11/2023 12:14 PM Exam Location: Echo Lab Exam Room: [facility] Patient Status: Inpatient Admit Date: 10/08/2023 Staff Ordering Physician: Urmila Campoverde DO Digital Solutions Architect: Karen Grissom RDCS Attending Provider: Urmila Campoverde DO Referring Physician: Gilles SALAMANCA; Exam Type: CA echo transesophageal Study Info Indications - PRE CARDIOIVERSION AFIB/RVR Limited two-dimensional transesophageal examination is performed. Summary 1. Limited transesophageal echo prior to cardioversion demonstrated marked left atrial enlargement with LA spontaneous contrast but no thrombus. 2. Structurally normal appearing mitral valve. 3. Normal left ventricular size with good systolic contractility. Left Ventricle Left ventricular chamber dimension is normal. Left ventricular systolic function is normal with an ejection fraction by Biplane Method of Discs of Empty. Right Ventricle Right ventricular chamber dimension is not well visualized. Left Atria Left atrial chamber dimension is severely enlarged. Right Atria Right atrial chamber dimension is not well visualized. Atrial Appendage There is no thrombus visualized in the left atrial appendage. Aortic Valve The aortic valve is not well visualized. Pulmonic Valve The pulmonic valve is not well visualized. Mitral Valve The mitral valve has normal leaflets. Tricuspid Valve The tricuspid valve leaflets are not well visualized. Pericardium/Pleural The pericardium appears normal. Inferior Vena Cava Not well visualized inferior vena cava with Empty collapse upon inspiration consistent with Empty right atrial pressure, Empty. Aorta The aortic root size at the sinus of Valsalva is not well visualized. Report Signatures
[2023-10-11] MEDS: IPRATROPIUM BR 0.02% INH SOLN 0.5 MG/2.5 ML VIAL INHALATION ×4 (02:22→21:10)
[2023-10-11] MEDS: LORazepam (*CRX) 1 MG TABLET PO ×2 (02:50→18:25)
[2023-10-11 06:00] LABS: Basophils Absolute Auto 0.1 K/mm3 (0.0-0.1); Basophils Percent Auto 0.4 % (0.2-1.2); Eosinophils Absolute Auto 0.1 K/mm3 (0-0.3); Eosinophils Percent Auto 0.4 % (0-4.4); Hematocrit 42.3 % (37.0-47.0); Hemoglobin 13.1 g/dL (12.0-15.0); Immature Granulocyte Absolute 0.07 K/mm3 (0.00-0.031); Immature Granulocyte Percent A 0.5 % (0-0.5); Lymphocytes Absolute Auto 2.08 K/mm3 (0.9-3.2); Lymphocytes Percent Auto 15.5 % (18.3-44.2); Mean Corpuscular Hemoglobin 30.5 pg (26-34); Mean Corpuscular Volume 98.6 fl (80-100); Mean Platelet Volume 10.9 fl (7.4-10.4); Monocytes Absolute Auto 0.9 K/mm3 (0.1-0.6); Monocytes Percent Auto 6.6 % (2.6-8.5); Neutrophils Absolute Auto 10.3 K/mm3 (1.3-6.7); Neutrophils Percent Auto 76.6 % (45.5-73.1); Platelet Count Result 288 k/mm3 (150-375); Red Blood Count 4.29 M/mm3 (4.2-5.4); Red Cell Distribution Width 13.2 % (11.5-14.5); White Blood Count 13.5 K/mm3 (4.5-10.0)
[2023-10-11] MEDS: METOPROLOL TARTRATE TAB 25 MG, METOPROLOL TARTRATE TAB 50 MG 75 MG PO (06:02)
[2023-10-11 06:16] LABS: Alanine Aminotransferase 146 U/L (6-35); Alkaline Phosphatase 96 U/L (38-126); Anion Gap 7 mmol/L (8-16); Aspartate Amino Transferase 59 U/L (14-36); Bilirubin,Total 0.8 mg/dL (0.2-1.3); Blood Urea Nitrogen 36 mg/dL (7-17); Calcium 9.1 mg/dL (8.4-10.2); Carbon Dioxide 24 mmol/L (22-30); Chloride 106 mmol/L (98-107); Estimated CRCL calculation 51 ml/min; Estimated Glomerular Filt Rate 44; Glucose 106 mg/dL (65-110); Magnesium 2.5 mg/dL (1.6-2.3); Potassium 4.4 mmol/L (3.4-5.0); Sodium 137 mmol/L (137-145)
[2023-10-11] MEDS: FLUTICASONE/SALMETEROL 115-21 MCG INHALER 1 PUFF 2 PUFF INHALATION ×2 (07:53→21:10)
[2023-10-11] MEDS: dilTIAZem HCL CD 180 MG CAP.24HR 360 MG PO (09:46)
[2023-10-11] MEDS: DULoxetine HCL 30 MG CAPSULE.DR PO (09:46)
[2023-10-11] MEDS: CHOLECALCIFEROL 1,000 UNITS TABLET 1000 UNITS PO (09:47)
[2023-10-11] MEDS: ASPIRIN 81 MG ENTERIC TABLET PO (09:47)
[2023-10-11] MEDS: AZITHROMYCIN 250 MG TABLET PO (09:47)
[2023-10-11] MEDS: APIXABAN 5 MG TABLET PO ×2 (09:47→20:49)
[2023-10-11] MEDS: predniSONE 20 MG TABLET 40 MG PO (09:47)
--- NOTE | 2023-10-11 11:30 | ECG_ITS ---
Measurements Intervals [place] Rate: 140 P: NE: 0 QRS: 21 QRSD: 86 T: 98 QT: 300 QTc: 459 Interpretive Statements ATRIAL FIBRILLATION WITH RAPID VENTRICULAR RESPONSE NONSPECIFIC ST & T-WAVE ABNORMALITY- DIFFUSE LEADS BASELINE ARTIFACT- I, III, AVR, AVL, AVF ABNORMAL ECG COMPARED TO ECG 10/07/2023 16:17:29 NO SIGNIFICANT CHANGES Electronically Signed On 10-11-2023 13:18:16 CDT by Watson Knapp D.O.
--- NOTE | 2023-10-11 11:51 | WPDANESEPPF ---
Anes - Initial Pre Proc Eval Procedure: Operation Date: 10/11/23 13:00 Proposed Procedures p Electrical Cardioversion - Ad Whitley MD s Trans Esophageal Echo - Ad Whitley MD Date/Time: 10/11/23 11:51 Surgeon: Pietro Campoverde DO Pre Op Diagnosis: Afib w RVR Patient Data Age: 78 Gender: F Height: 1.71 m Weight: 131.5 kg Last Vital Signs Temp 36.2 C L 10/11/23 08:07 Pulse 114 H 10/11/23 08:07 Resp 24 H 10/11/23 08:07 BP 126/99 H 10/11/23 08:07 Pulse Ox 93 10/11/23 08:07 O2 Del Method Room Air 10/11/23 08:00 FiO2 21 10/11/23 04:00 Allergies Allergy/AdvReac Type Severity Reaction Status Date / Time No Known Allergies Allergy Mild Verified 10/07/23 12:39 Home Medications Medication Instructions Recorded Confirmed Type amlodipine 5 mg tablet 5 mg PO DAILY 08/24/22 10/07/23 History atenolol 50 mg tablet 50 mg PO DAILY 08/24/22 10/07/23 History budesonide-formoterol HFA 160 1 puff inhalation BID 08/24/22 10/07/23 History mcg-4.5 mcg/actuation aerosol inhaler (Symbicort) celecoxib 100 mg capsule 100 mg PO DAILY 08/24/22 10/07/23 History duloxetine 30 mg capsule,delayed 30 mg PO DAILY 08/24/22 10/07/23 History release lovastatin 10 mg tablet 10 mg PO QHS 08/24/22 10/07/23 History aspirin 81 mg capsule 81 mg PO DAILY 08/25/22 10/07/23 History cholecalciferol (vitamin D3) 25 25 mcg PO DAILY 08/25/22 10/07/23 History mcg (1,000 unit) tablet (Vitamin D3) lorazepam 1 mg tablet 1 mg PO Q6H PRN Anxiety 10/07/23 10/07/23 History Laboratory Tests 10/10/23 10/11/23 21:01 05:00 WBC 13.5 H K/mm3 (4.5-10.0) RBC 4.29 M/mm3 (4.2-5.4) Hgb 13.1 g/dL (12.0-15.0) Hct 42.3 % (37.0-47.0) MCV 98.6 fl (80-100) MCH 30.5 pg (26-34) MCHC 31.0 L g/dl (32-36) RDW 13.2 % (11.5-14.5) Plt Count 288 k/mm3 (150-375) MPV 10.9 H fl (7.4-10.4) Immature Gran % (Auto) 0.5 % (0-0.5) Neut % (Auto) 76.6 H % (45.5-73.1) Lymph % (Auto) 15.5 L % (18.3-44.2) [place] % (Auto) 6.6 % (2.6-8.5) Eos % (Auto) 0.4 % (0-4.4) Baso % (Auto) 0.4 % (0.2-1.2) Lymph # (Auto) 2.08 K/mm3 (0.9-3.2) [place] # (Auto) 0.9 H K/mm3 (0.1-0.6) Eos # (Auto) 0.1 K/mm3 (0-0.3) Baso # (Auto) 0.1 K/mm3 (0.0-0.1) Abs Immat Gran (auto) 0.07 H K/mm3 (0.00-0.031) Absolute Neuts (auto) 10.3 H K/mm3 (1.3-6.7) Absolute Nucleated RBC 0.000 K/mm3 (0.0-0.012) Nucleated RBC % 0.0 % (0.0-0.2) Sodium 137 mmol/L (137-145) Potassium 4.4 mmol/L (3.4-5.0) Chloride 106 mmol/L (98-107) Carbon Dioxide 24 mmol/L (22-30) Anion Gap 7 L mmol/L (8-16) BUN 36 H mg/dL (7-17) Creatinine 1.20 H mg/dL (0.7-1.0) Estim Creat Clear Calc 51 ml/min Estimated GFR 44 L (59 - ) Glucose 106 mg/dL (65-110) Calcium 9.1 mg/dL (8.4-10.2) Magnesium 2.5 H mg/dL (1.6-2.3) Total Bilirubin 0.8 mg/dL (0.2-1.3) AST 59 H U/L (14-36) ALT 146 H U/L (6-35) Alkaline Phosphatase 96 U/L (38-126) Total Protein 7.0 g/dL (6.3-8.2) Albumin 4.0 g/dL (3.5-5.1) Urine Color Yellow (Yellow) Urine Appearance Clear (Clear) Urine pH 5.5 (5.0-9.0) Ur Specific [place] 1.015 (1.001-1.035) Urine Protein Negative mg/dL (Negative) Urine Glucose (UA) Negative mg/dL (Negative) Urine Ketones Negative mg/dL (Negative) Ur Blood (Man) Negative (Negative) Urine Nitrate Negative (Negative) Urine Bilirubin Negative (Negative) Urine Urobilinogen 1.0 mg/dL (<2.0) Ur Leukocyte Esterase Negative JUDIT/UL (Negative) Ur Random Sodium 52 meq/L Patient hx anesthesia problems: none Family hx anesthesia
--- NOTE | 2023-10-11 12:45 | ECG_ITS ---
Measurements Intervals [place] Rate: 57 P: 23 MN: 192 QRS: 4 QRSD: 96 T: 60 QT: 398 QTc: 390 Interpretive Statements SINUS BRADYCARDIA WITH SINUS ARRHYTHMIA ATRIAL PREMATURE COMPLEX LOW QRS VOLTAGE IN PRECORDIAL LEADS CONSIDER INFERIOR INFARCT, AGE INDETERMINATE NONSPECIFIC T-WAVE ABNORMALITY- HIGH LATERAL LEADS BORDERLINE ECG COMPARED TO ECG 10/11/2023 12:23:40 SINUS BRADYCARDIA NOW PRESENT Electronically Signed On 10-11-2023 13:20:29 CDT by Watson Knapp D.O.
--- NOTE | 2023-10-11 12:49 | P.PCNCC_ITS ---
Cardiac Cath Procedure Note Date of procedure:: 10/11/23 Performing physician:: Ad Whitley MD Indication:: persistent atrial fibrillation/difficult heart rate control Brief clinical history:: this is a 78-year-old woman admitted to the hospital with symptomatic atrial fibrillation. She reports tachycardia/ palpitations for several weeks. Heart rate control despite beta-era and high-dose diltiazem has been difficult to achieve. For this reason IGNACIO/ cardioversion Procedure Procedure performed:: ignacio/cardioversion Sedation/Medication given:: sedation provided by Anesthesia see their separately dictated report Estimated blood loss:: 0 Procedure note:: patient was brought to the postanesthesia unit in the lab instructor where she was in the supine position with defibrillator patches placed in the AP position. She had kemar pharyngeal benzocaine sprayed on the hypopharynx and bite block placed. Following this the anesthesiology ignacio was done examining the left atrium which was significantly dilated with obvious left atrial spontaneous contrast or smoke but no thrombus was identified. The left atrial appendage was inspected following this the IGNACIO probe was removed and the patient was counter shocked in a synchronized fashion with 200 joules x1 shock which restored sinus Findings:: as above Conclusion:: successful uncomplicated IGNACIO/cardioversion of atrial fib restoring sinus rhythm with 200 joules x1 shock following transesophageal echocardiogram confirming no visible left atrial appendage thrombus. Ad Whitley MD [facility]
--- NOTE | 2023-10-11 15:25 | WPDANESEPPF ---
Anes - Initial Pre Proc Eval Procedure: Operation Date: 10/11/23 13:00 Proposed Procedures p Electrical Cardioversion - Ad Whitley MD s Trans Esophageal Echo - Ad Whitley MD Date/Time: 10/11/23 15:25 Surgeon: Naty Pre Op Diagnosis: Afib w RVR Patient Data Age: 78 Gender: F Height: 1.71 m Weight: 131.5 kg Last Vital Signs Temp 36.2 C L 10/11/23 11:48 Pulse 56 L 10/11/23 14:11 Resp 20 10/11/23 14:11 BP 119/75 10/11/23 13:15 Pulse Ox 95 10/11/23 13:15 O2 Del Method Nasal Cannula 10/11/23 13:15 O2 Flow Rate 2 10/11/23 13:15 FiO2 21 10/11/23 04:00 Allergies Allergy/AdvReac Type Severity Reaction Status Date / Time No Known Allergies Allergy Mild Verified 10/07/23 12:39 Home Medications Medication Instructions Recorded Confirmed Type amlodipine 5 mg tablet 5 mg PO DAILY 08/24/22 10/07/23 History atenolol 50 mg tablet 50 mg PO DAILY 08/24/22 10/07/23 History budesonide-formoterol HFA 160 1 puff inhalation BID 08/24/22 10/07/23 History mcg-4.5 mcg/actuation aerosol inhaler (Symbicort) celecoxib 100 mg capsule 100 mg PO DAILY 08/24/22 10/07/23 History duloxetine 30 mg capsule,delayed 30 mg PO DAILY 08/24/22 10/07/23 History release lovastatin 10 mg tablet 10 mg PO QHS 08/24/22 10/07/23 History aspirin 81 mg capsule 81 mg PO DAILY 08/25/22 10/07/23 History cholecalciferol (vitamin D3) 25 25 mcg PO DAILY 08/25/22 10/07/23 History mcg (1,000 unit) tablet (Vitamin D3) lorazepam 1 mg tablet 1 mg PO Q6H PRN Anxiety 10/07/23 10/07/23 History Laboratory Tests 10/10/23 10/11/23 21:01 05:00 WBC 13.5 H K/mm3 (4.5-10.0) RBC 4.29 M/mm3 (4.2-5.4) Hgb 13.1 g/dL (12.0-15.0) Hct 42.3 % (37.0-47.0) MCV 98.6 fl (80-100) MCH 30.5 pg (26-34) MCHC 31.0 L g/dl (32-36) RDW 13.2 % (11.5-14.5) Plt Count 288 k/mm3 (150-375) MPV 10.9 H fl (7.4-10.4) Immature Gran % (Auto) 0.5 % (0-0.5) Neut % (Auto) 76.6 H % (45.5-73.1) Lymph % (Auto) 15.5 L % (18.3-44.2) [place] % (Auto) 6.6 % (2.6-8.5) Eos % (Auto) 0.4 % (0-4.4) Baso % (Auto) 0.4 % (0.2-1.2) Lymph # (Auto) 2.08 K/mm3 (0.9-3.2) [place] # (Auto) 0.9 H K/mm3 (0.1-0.6) Eos # (Auto) 0.1 K/mm3 (0-0.3) Baso # (Auto) 0.1 K/mm3 (0.0-0.1) Abs Immat Gran (auto) 0.07 H K/mm3 (0.00-0.031) Absolute Neuts (auto) 10.3 H K/mm3 (1.3-6.7) Absolute Nucleated RBC 0.000 K/mm3 (0.0-0.012) Nucleated RBC % 0.0 % (0.0-0.2) Sodium 137 mmol/L (137-145) Potassium 4.4 mmol/L (3.4-5.0) Chloride 106 mmol/L (98-107) Carbon Dioxide 24 mmol/L (22-30) Anion Gap 7 L mmol/L (8-16) BUN 36 H mg/dL (7-17) Creatinine 1.20 H mg/dL (0.7-1.0) Estim Creat Clear Calc 51 ml/min Estimated GFR 44 L (59 - ) Glucose 106 mg/dL (65-110) Calcium 9.1 mg/dL (8.4-10.2) Magnesium 2.5 H mg/dL (1.6-2.3) Total Bilirubin 0.8 mg/dL (0.2-1.3) AST 59 H U/L (14-36) ALT 146 H U/L (6-35) Alkaline Phosphatase 96 U/L (38-126) Total Protein 7.0 g/dL (6.3-8.2) Albumin 4.0 g/dL (3.5-5.1) Urine Color Yellow (Yellow) Urine Appearance Clear (Clear) Urine pH 5.5 (5.0-9.0) Ur Specific [place] 1.015 (1.001-1.035) Urine Protein Negative mg/dL (Negative) Urine Glucose (UA) Negative mg/dL (Negative) Urine Ketones Negative mg/dL (Negative) Ur Blood (Man) Negative (Negative) Urine Nitrate Negative (Negative) Urine Bilirubin Negative (Negative) Urine Urobilinogen 1.0 mg/dL (<2.0) Ur Leukocyte Esterase Negative JUDIT/UL (Negative) Ur Random Sodium 52 meq/L Patient hx anesthesia problems: none Fa
--- NOTE | 2023-10-11 16:12 | PM.IMPN ---
Progress Note: A&P Assessment and Plan (1) COPD (chronic obstructive pulmonary disease): Code(s): J44.9 - Chronic obstructive pulmonary disease, unspecified Status: Acute (2) Transaminitis: Code(s): R74.01 - Elevation of levels of liver transaminase levels Status: Acute (3) Atrial fibrillation with rapid ventricular response: Code(s): I48.91 - Unspecified atrial fibrillation Status: Acute (4) Psoriasis: Code(s): L40.9 - Psoriasis, unspecified Status: Acute (5) Hypertension: Code(s): I10 - Essential (primary) hypertension Status: Acute (6) Hyperlipidemia: Code(s): E78.5 - Hyperlipidemia, unspecified Status: Acute (7) Leukocytosis: Code(s): D72.829 - Elevated white blood cell count, unspecified Status: Acute (8) Tobacco abuse: Code(s): Z72.0 - Tobacco use Status: Acute Plan 78-year-old female with a past medical history obesity, COPD, depression and anxiety, hypertension, hyperlipidemia, psoriasis, history of rhabdomyolysis, active tobacco abuse presenting with racing heart rate. Admitted on 10/07/2023 for atrial fibrillation with RVR AFib with RVR -echo noted. TSH within normal limit. Encourage patient to stop smoking, she reports she was done since Saturday which is the day prior to admission. -cardiology consulted -her home dose atenolol was changed to metoprolol. Rate control not achieved. Diltiazem p.o. started. Rate control still not achieved. Possible KATE today -Lovenox therapeutic dosing switch to Eliquis 5 mg p.o. b.i.d. 10/11/23: KATE cardioversion today Transaminitis -she is unaware of liver issues. He has had chronic transaminitis but as far as we can ascertain this has not been investigated aside from an infectious hepatitis screening panel which was negative. Liver ultrasound unrevealing. Could be acute on chronic due to AFib with RVR. Also given Solu-Medrol 125 mg IV x1 in the ER. Should have close follow-up with PCP and supervisor of research. Elevated BNP -patient was prescribed Lasix outpatient but did not want to take it due to her incontinence. BNP elevation may be due to AFib with RVR and aside from that she appears compensated. Surface echo conducted on 10/07 demonstrating normal EF at 55-60% with moderate concentric increased left ventricular wall thickness and left ventricular diastolic dysfunction. Leukocytosis -downtrending. This could be due to steroid use or bronchitis. Continue to monitor. SAVAGE -could be due to ATN versus hypovolemia versus AFib -start normal saline at a gentle dosing 75 cc/hour -check renal ultrasound and urinalysis. Urine sodium ordered as well COPD -given Solu-Medrol and neb treatment in the ER. Treatment was not continued thereafter. On 10/08 her wheezing is more appreciated and she is now complaining of increasing cough and white sputum production with shortness of breath. Start prednisone 40 mg p.o. q.day and azithromycin. Ipratropium nebs q.6 hours. For now will hold off on beta agonist as to not further worsen her atrial fibrillation with RVR. COVID flu RSV negative. -on October 09 she still has a slight wheeze and dyspnea on exertion. Continue above management. Hypertension -controlled. Treat AFib Right pleural effusion -small, at the moment appears to be in significant. Continue to monitor Tobacco abuse -nicotine patch. Counseling provided FEN: Normal saline. Heart healthy diet GI prophylaxis: Not indicated DVT prophylaxis: Eliquis Lines: Peripheral IV Code Status: Full code Dispo: Stable in IMU. Continue telemetry Time Spent With Patient Time with patient: 25 - 35 minutes Subjective Date/time seen: 10/11/23 16:12 Interval history: Reason for visit: Atrial fibrillation with RVR HPI: Merly Stratton is a 78 year old female with no previous cardiac history who presents to the hospital with complaints of racing heartbeat and shortness of breath with
[2023-10-11] MEDS: LOVASTATIN 10 MG TABLET PO (20:49)
[2023-10-11] MEDS: SOTALOL HCL 80 MG TABLET PO (20:50)
--- NOTE | 2023-10-11 22:15 | ECG_ITS ---
Measurements Intervals [place] Rate: 58 P: 62 GA: 193 QRS: 31 QRSD: 93 T: 71 QT: 407 QTc: 400 Interpretive Statements SINUS BRADYCARDIA ATRIAL PREMATURE COMPLEX EARLY PRECORDIAL R/S TRANSITION BORDERLINE T WAVE ABNORMALITY- HIGH LATERAL LEADS BORDERLINE ECG COMPARED TO ECG 10/11/2023 12:42:18 NO SIGNIFICANT CHANGES Electronically Signed On 10-12-2023 7:49:50 CDT by Watson Knapp D.O.
[2023-10-12] VITALS (19 sets, daily range): BP systolic 130–153; BP diastolic 56–77; PULSE 49–59; RESP 16–24; TEMP 36.1–36.7; O2SAT 94–99
[2023-10-12] MEDS: LORazepam (*CRX) 1 MG TABLET PO ×3 (00:26→14:21)
[2023-10-12] MEDS: SODIUM CHLORIDE 0.9% IV 1,000 ML 75 ML IV CONT (00:26)
[2023-10-12] MEDS: IPRATROPIUM BR 0.02% INH SOLN 0.5 MG/2.5 ML VIAL INHALATION ×3 (01:46→13:29)
[2023-10-12 05:12] LABS: Basophils Absolute Auto 0.1 K/mm3 (0.0-0.1); Basophils Percent Auto 0.4 % (0.2-1.2); Eosinophils Absolute Auto 0.1 K/mm3 (0-0.3); Eosinophils Percent Auto 0.5 % (0-4.4); Hematocrit 43.5 % (37.0-47.0); Hemoglobin 13.2 g/dL (12.0-15.0); Immature Granulocyte Absolute 0.08 K/mm3 (0.00-0.031); Immature Granulocyte Percent A 0.5 % (0-0.5); Lymphocytes Absolute Auto 1.99 K/mm3 (0.9-3.2); Lymphocytes Percent Auto 11.9 % (18.3-44.2); Mean Corpuscular HGB Conc 30.3 g/dl (32-36); Mean Corpuscular Hemoglobin 30.6 pg (26-34); Mean Corpuscular Volume 100.9 fl (80-100); Mean Platelet Volume 10.7 fl (7.4-10.4); Monocytes Absolute Auto 1.2 K/mm3 (0.1-0.6); Monocytes Percent Auto 7.1 % (2.6-8.5); Neutrophils Absolute Auto 13.3 K/mm3 (1.3-6.7); Neutrophils Percent Auto 79.6 % (45.5-73.1); Platelet Count Result 314 k/mm3 (150-375); Red Blood Count 4.31 M/mm3 (4.2-5.4); White Blood Count 16.7 K/mm3 (4.5-10.0)
[2023-10-12 05:28] LABS: Alanine Aminotransferase 183 U/L (6-35); Alkaline Phosphatase 94 U/L (38-126); Anion Gap 3 mmol/L (8-16); Aspartate Amino Transferase 66 U/L (14-36); Bilirubin,Total 0.6 mg/dL (0.2-1.3); Blood Urea Nitrogen 34 mg/dL (7-17); Calcium 9.1 mg/dL (8.4-10.2); Carbon Dioxide 30 mmol/L (22-30); Chloride 107 mmol/L (98-107); Estimated CRCL calculation 47 ml/min; Estimated Glomerular Filt Rate 40; Glucose 95 mg/dL (65-110); Potassium 4.3 mmol/L (3.4-5.0); Sodium 140 mmol/L (137-145)
[2023-10-12] MEDS: FLUTICASONE/SALMETEROL 115-21 MCG INHALER 1 PUFF 2 PUFF INHALATION (07:57)
--- NOTE | 2023-10-12 08:24 | PM.PNCARD ---
Progress Note: A&P Assessment and Plan (1) Atrial fibrillation with rapid ventricular response: Code(s): I48.91 - Unspecified atrial fibrillation Status: Acute Plan 78-year-old lady with hypertension, morbid obesity and atrial fibrillation with RVR. Heart rate was difficult to control and so KATE cardioversion was done yesterday successfully restoring sinus rhythm/sinus bradycardia. I placed her on sotalol in hopes of maintaining sinus rhythm and stopped metoprolol and diltiazem. From my perspective she can go home today. I will ensure that timely follow-up is arranged in my office for this on Saturday. We will reach out to the patient for follow-up appointment at that time. Ad Whitley MD [facility] Subjective Date/time seen: Date of service: 10/12/23 08:24 Interval history: Reason for visit: Atrial fibrillation with RVR HPI: Merly Stratton is a 78 year old female with no previous cardiac history who presents to the hospital with complaints of racing heartbeat and shortness of breath with exertion.? Patient states she has been feeling a rapid heartbeat for about 1 month.? She states she was hoping that the rapid heartbeat would just go away but when she became more and more short of breath she decided that she needed to be evaluated. She has been found to be in atrial fibrillation with rapid ventricular response. ? She has been placed a Diltiazem drip and her heart rate remains elevated up to the 140's intermittently.? She can still feel her heart racing but it is no longer constant.? She denies any shortness of breath or chest pain. Date of service 10/08: She is feeling okay. Has occasionally RVR, however, rates are controlled at the time of my evaluation. Date of service 10/10/2023: Feels good today. Heart rate is not well controlled at this point. She's not feeling palpitations or shortness of breath. 10/12/2023: Patient feeling well sitting up eating her breakfast no complaints. Maintaining sinus rhythm/sinus bradycardia following cardioversion yesterday. Exam Const: General: comfortable, no acute distress, alert and awake Orientation/consciousness: patient oriented x3 HENMT: Head: normal to inspection Mouth: Yes dry mucous membranes Eyes: General: appearance normal, both eyes and all related structures Sclera: sclerae normal Pupils: Equal, round and reactive pupils present Neck: Neck: normal visual inspection, supple and no JVD Carotids: normal carotid upstroke Resp: Effort & Inspection: normal respiratory effort Auscultation: clear to auscultation bilaterally, wheezes left lower and diminished lung sounds Cardio: Rate: regular rate Rhythm: regular rhythm Heart sounds: S1 normal heart sound present, S2 normal heart sound present and no murmurs GI: Auscultation: normal bowel sounds Skin: General skin exam: normal color and lesion (psoriasis plaques) Lesions: lesion noted (psoriasis plaques) Other: Rash noted on arms, appears to be psoriasis Neuro: General: patient oriented x3 Cranial nerves: Yes Equal, round and reactive pupils present Speech: normal speech Extrem: General: normal to inspection Psych: Appearance: grossly normal Mental Status: mental status grossly normal Affect: normal affect Objective Data Vital Signs Vital Signs: Vital Signs - 24 hr 10/11/23 11:48 10/11/23 11:53 10/11/23 10:00 Temperature 36.2 C L Pulse Rate 128 H 116 H Respiratory Rate 24 H Blood Pressure 96/78 L 118/90 Pulse Oximetry 91 Oxygen Delivery Oxygen Flow Rate 10/11/23 12:45 10/11/23 12:00 10/11/23 13:00 Temperature Pulse Rate 53 L 57 L Respiratory Rate 12 14 Blood Pressure 116/65 101/68 Pulse Oximetry 94 94 Oxygen Delivery Nasal Cannula Room Air Nasal Cannula Oxygen Flow Rate 6 4 10/11/23 13:15 10/11/23 14:03 10/11/23 14:11 Temperature Pulse Rate 54 L 55 L 56 L Respiratory Rate 12 20 20 Blood Pressure 119/75 Pulse Oximetry 95 Oxygen Delivery
[2023-10-12] MEDS: SOTALOL HCL 80 MG TABLET PO (08:40)
[2023-10-12] MEDS: CHOLECALCIFEROL 1,000 UNITS TABLET 1000 UNITS PO (08:41)
[2023-10-12] MEDS: DULoxetine HCL 30 MG CAPSULE.DR PO (08:41)
[2023-10-12] MEDS: predniSONE 20 MG TABLET 40 MG PO (08:41)
[2023-10-12] MEDS: SENNOSIDES 8.6 MG TABLET PO (08:41)
[2023-10-12] MEDS: APIXABAN 5 MG TABLET PO (08:41)
--- NOTE | 2023-10-12 10:09 | ECG_ITS ---
Measurements Intervals [place] Rate: 50 P: 69 MA: 203 QRS: 17 QRSD: 94 T: 53 QT: 481 QTc: 440 Interpretive Statements SINUS BRADYCARDIA CONSIDER INFERIOR INFARCT, AGE INDETERMINATE BORDERLINE ST-T WAVE ABNORMALITY- HIGH LATERAL LEADS ABNORMAL ECG COMPARED TO ECG 10/11/2023 22:21:43 NO SIGNIFICANT CHANGES Electronically Signed On 10-12-2023 17:47:00 CDT by Watson Knapp D.O.
--- NOTE | 2023-10-12 16:22 | PM.DS ---
DS: Admitting Diagnosis Discharge Date 10/12/23 Admitting Diagnosis 1. Shortness of breath 2. Palpitations DS: Discharge Diagnosis Discharge Diagnosis (1) COPD (chronic obstructive pulmonary disease): Code(s): J44.9 - Chronic obstructive pulmonary disease, unspecified Status: Acute (2) Transaminitis: Code(s): R74.01 - Elevation of levels of liver transaminase levels Status: Acute (3) Atrial fibrillation with rapid ventricular response: Code(s): I48.91 - Unspecified atrial fibrillation Status: Acute (4) Psoriasis: Code(s): L40.9 - Psoriasis, unspecified Status: Acute (5) Hypertension: Code(s): I10 - Essential (primary) hypertension Status: Acute (6) Hyperlipidemia: Code(s): E78.5 - Hyperlipidemia, unspecified Status: Acute (7) Leukocytosis: Code(s): D72.829 - Elevated white blood cell count, unspecified Status: Acute (8) Tobacco abuse: Code(s): Z72.0 - Tobacco use Status: Acute Plan 78-year-old female with a past medical history obesity, COPD, depression and anxiety, hypertension, hyperlipidemia, psoriasis, history of rhabdomyolysis, active tobacco abuse presenting with racing heart rate. Admitted on 10/07/2023 for atrial fibrillation with RVR AFib with RVR -echo noted. TSH within normal limit. Encourage patient to stop smoking, she reports she was done since Saturday which is the day prior to admission. -cardiology consulted -her home dose atenolol was changed to metoprolol. Rate control not achieved. Diltiazem p.o. started. Rate control still not achieved. Possible KATE today -Lovenox therapeutic dosing switch to Eliquis 5 mg p.o. b.i.d. 10/11/23: KATE cardioversion today Transaminitis -she is unaware of liver issues. He has had chronic transaminitis but as far as we can ascertain this has not been investigated aside from an infectious hepatitis screening panel which was negative. Liver ultrasound unrevealing. Could be acute on chronic due to AFib with RVR. Also given Solu-Medrol 125 mg IV x1 in the ER. Should have close follow-up with PCP and budget technician. Elevated BNP -patient was prescribed Lasix outpatient but did not want to take it due to her incontinence. BNP elevation may be due to AFib with RVR and aside from that she appears compensated. Surface echo conducted on 10/07 demonstrating normal EF at 55-60% with moderate concentric increased left ventricular wall thickness and left ventricular diastolic dysfunction. Leukocytosis -downtrending. This could be due to steroid use or bronchitis. Continue to monitor. SAVAGE -could be due to ATN versus hypovolemia versus AFib -start normal saline at a gentle dosing 75 cc/hour -check renal ultrasound and urinalysis. Urine sodium ordered as well COPD -given Solu-Medrol and neb treatment in the ER. Treatment was not continued thereafter. On 10/08 her wheezing is more appreciated and she is now complaining of increasing cough and white sputum production with shortness of breath. Start prednisone 40 mg p.o. q.day and azithromycin. Ipratropium nebs q.6 hours. For now will hold off on beta agonist as to not further worsen her atrial fibrillation with RVR. COVID flu RSV negative. -on October 09 she still has a slight wheeze and dyspnea on exertion. Continue above management. Hypertension -controlled. Treat AFib Right pleural effusion -small, at the moment appears to be in significant. Continue to monitor Tobacco abuse -nicotine patch. Counseling provided FEN: Normal saline. Heart healthy diet GI prophylaxis: Not indicated DVT prophylaxis: Eliquis Lines: Peripheral IV Code Status: Full code Dispo: Stable in IMU. Continue telemetry DS: Summary Hospital Course Reason for hospitalization: 1. Shortness of breath 2. Palpitations Hospital Course: 78-year-old female with a past medical history obesity, COPD, depression and anxiety, hypertension, hyperlip
== END 2023-10-12 17:23 | disposition home or self-care (01) | DRG 309 ==
LOC: ANHED 13:00 → ANHIMU 17:20
PROVIDERS: General Practice; Physician Assistant; Specialist; Admitting Provider Student in an Organized Health Care Education/Training Program; Emergency Provider Emergency Medicine; PCP Nurse Practitioner Family; Visit Provider Internal Medicine
PROC: 5A2204Z Restoration of Cardiac Rhythm, Single (ICD-10-PCS; principal; 2023-10-11 13:00)
PROC: 5A2204Z Restoration of Cardiac Rhythm, Single (ICD-10-PCS; CPT 93312; 2023-10-11 13:00)
DX: I48.91 Unspecified atrial fibrillation (principal); N17.9 Acute kidney failure, unspecified; Z68.41 Body mass index [BMI] 40.0-44.9, adult; I10 Essential (primary) hypertension; J44.9 Chronic obstructive pulmonary disease, unspecified; E78.5 Hyperlipidemia, unspecified; E66.01 Morbid (severe) obesity due to excess calories; L40.9 Psoriasis, unspecified; R74.01 Elevation of levels of liver transaminase levels; F32.A Depression, unspecified; F41.9 Anxiety disorder, unspecified; F17.210 Nicotine dependence, cigarettes, uncomplicated; Z20.822 Contact with and (suspected) exposure to COVID-19; Z79.82 Long term (current) use of aspirin
CPT/HCPCS: 36415; 71045; 73030; 76705; 76775; 80053; 81001; 82550; 83605; 83690; 83735; 83880; 84145; 84300; 84443; 84484; 85025; 85610; 85730; 87637; 92960; 93005; 93306; 93312; 93320; 93325; 94640; 94762; 96365; 96366; 96372; 96375; 99285; A9270; G0378; J1650; J2250; J2930; J3010; J7030; J7040; J7512

== ENCOUNTER 2023-10-13 06:13 | Inpatient (IN) | payer MEDICARE, SELFPAY ==
[2023-10-13] VITALS (22 sets, daily range): BP systolic 130–153; BP diastolic 68–100; PULSE 61–99; RESP 15–26; TEMP 36.2–36.8; O2SAT 93–100; BMI 46.4
--- NOTE | ~2023-10-13 | XR_ITS ---
EXAMINATION: XR chest 2V DATE: 10/13/2023 06:52 INDICATION: New onset shortness of breath TECHNIQUE: frontal and lateral views of the chest were obtained. COMPARISON: Chest radiograph dated 10/07/2023 FINDINGS: Unchanged streaky right basilar atelectasis with small right pleural effusion versus more likely pleu ral thickening at the lateral right lower lung zone. No other airspace opacities, pulmonary edema, pl eural effusion or pneumothorax. The cardiomediastinal silhouette is normal. IMPRESSION: 1. Unchanged mild right basilar atelectasis/scarring with small right pleural effusion versus more li maico additional pleural parenchymal scarring with pleural thickening at the lateral right lower lung zone. Reviewed, dictated and finalized at location A. IMPRESSION: 1. Unchanged mild right basilar atelectasis/scarring with small right pleural e ffusion versus more likely additional pleural parenchymal scarring with pleural thickening at the lateral right lower lung zone.
--- NOTE | ~2023-10-13 | XR_ITS ---
EXAMINATION: XR chest port-a-cath/central DATE: 10/13/2023 11:11 INDICATION: Catheter placement TECHNIQUE: frontal view of the chest was obtained. COMPARISON: Chest radiograph dated 10/13/2023 FINDINGS: Mild linear atelectasis/scarring at the lateral right lung base. No pulmonary edema, pleural effusion or pneumothorax. The cardiomediastinal silhouette is normal. Catheter projects over the medial right upper arm with distal tip at the proximal upper arm. IMPRESSION: 1. Mild right basilar atelectasis. 2. Right upper extremity catheter with distal tip at the proximal right upper arm. Reviewed, dictated and finalized at location A. IMPRESSION: 1. Mild right basilar atelectasis. 2. Right upper extremity catheter with distal tip at the proximal right upper a rm.
--- NOTE | ~2023-10-13 | CT_ITS ---
EXAMINATION: CTA chest PE protocol DATE: 10/13/2023 12:01 INDICATION: Shortness of breath TECHNIQUE: Computed tomography (CT) pulmonary angiogram of the chest was performed with 100 mL Omnipa que-350 intravenous contrast. Additional 3D reconstructions utilizing coronal maximum intensity proje ction (MIP) were performed. Automated exposure control and iterative reconstruction technique were em ployed. The dose-length product was 935.11 mGy-cm. COMPARISON: None FINDINGS: Excellent contrast opacification of the pulmonary arteries including diagnostic quality study demonst rating no pulmonary embolism. There are small bilateral pleural effusions with mild dependent atelect asis in bilateral lower lobes. There is some bronchial wall thickening in the bilateral lower lobes. Minimal pulmonary edema some smooth septal line thickening at the bilateral lung bases. Heart size is normal. Atherosclerotic coronary artery calcific lesion. No pericardial effusion. Thoracic aorta is normal in caliber. No pathologically enlarged thoracic lymphadenopathy. There is some reflux of contr ast into the inferior vena cava and hepatic veins consistent with tricuspid regurgitation. Moderate t horacic spondylosis with bridging osteophytes at multiple levels consistent with diffuse idiopathic s keletal hyperostosis (DISH). IMPRESSION: 1. No pulmonary embolism. 2. Minimal pulmonary edema and small bilateral pleural effusions. 3. Mild bronchial wall thickening in the bilateral lower lobes which could be related to mild pulmona ry edema, bronchitis or reactive airway disease/asthma. Reviewed, dictated and finalized at location A. IMPRESSION: 1. No pulmonary embolism. 2. Minimal pulmonary edema and small bilateral pleural effusions. 3. Mild bronchial wall thickening in the bilateral lower lobes which could be r elated to mild pulmonary edema, bronchitis or reactive airway disease/asthma.
--- NOTE | 2023-10-13 06:19 | ECG_ITS ---
Measurements Intervals [place] Rate: 67 P: 67 NC: 183 QRS: 58 QRSD: 100 T: 101 QT: 419 QTc: 444 Interpretive Statements SINUS RHYTHM WITH SINUS ARRHYTHMIA CANNOT RULE OUT SEPTAL INFARCT, AGE INDETERMINATE ST-T WAVE ABNORMALITY IN HIGH LATERAL LEADS- CONSIDER ISCHEMIA BASELINE ARTIFACT- I, II, III, AVR, AVL, AVF, V1-V6 ABNORMAL ECG COMPARED TO ECG 10/12/2023 10:24:34 SINUS RHYTHM NOW PRESENT SINUS ARRHYTHMIA NOW PRESENT Electronically Signed On 10-13-2023 8:10:11 CDT by Watson Knapp D.O.
[2023-10-13] MEDS: LEVALBUTEROL NEB 1.25 MG/3 ML 2.5 MG INHALATION (07:36)
[2023-10-13] MEDS: IPRATROPIUM BR 0.02% INH SOLN 0.5 MG/2.5 ML VIAL 1 MG INHALATION (07:37)
[2023-10-13 07:40] LABS: Basophils Absolute Auto 0.1 K/mm3 (0.0-0.1); Basophils Percent Auto 0.3 % (0.2-1.2); Eosinophils Absolute Auto 0.1 K/mm3 (0-0.3); Eosinophils Percent Auto 0.5 % (0-4.4); Hemoglobin 13.7 g/dL (12.0-15.0); Immature Granulocyte Absolute 0.09 K/mm3 (0.00-0.031); Immature Granulocyte Percent A 0.5 % (0-0.5); Lymphocytes Absolute Auto 1.39 K/mm3 (0.9-3.2); Lymphocytes Percent Auto 7.3 % (18.3-44.2); Mean Corpuscular HGB Conc 31.9 g/dl (32-36); Mean Corpuscular Hemoglobin 30.9 pg (26-34); Mean Corpuscular Volume 97.1 fl (80-100); Mean Platelet Volume 10.1 fl (7.4-10.4); Monocytes Absolute Auto 1.2 K/mm3 (0.1-0.6); Monocytes Percent Auto 6.2 % (2.6-8.5); Neutrophils Absolute Auto 16.1 K/mm3 (1.3-6.7); Neutrophils Percent Auto 85.2 % (45.5-73.1); Platelet Count Result 269 k/mm3 (150-375); Red Blood Count 4.43 M/mm3 (4.2-5.4); Red Cell Distribution Width 12.8 % (11.5-14.5)
[2023-10-13 07:50] LABS: INR 1.2; Prothrombin Time 15.2 Seconds (11.1-14.7)
[2023-10-13 07:51] LABS: Alanine Aminotransferase 189 U/L (6-35); Albumin Level 3.8 g/dL (3.5-5.1); Alkaline Phosphatase 99 U/L (38-126); Anion Gap 5 mmol/L (8-16); Aspartate Amino Transferase 74 U/L (14-36); Bilirubin,Total 0.8 mg/dL (0.2-1.3); Blood Urea Nitrogen 32 mg/dL (7-17); Calcium 8.9 mg/dL (8.4-10.2); Carbon Dioxide 26 mmol/L (22-30); Chloride 106 mmol/L (98-107); Estimated CRCL calculation 63 ml/min; Estimated Glomerular Filt Rate > 60; Glucose 126 mg/dL (65-110); Lipase 71 U/L (23-300); Partial Thromboplastin Time 31.5 Seconds (22.3-36.8); Potassium 4.1 mmol/L (3.4-5.0); Sodium 137 mmol/L (137-145)
[2023-10-13 08:00] LABS: NT Pro B Type Natriuretic Pept 3650 pg/mL (19.9-100)
[2023-10-13 08:09] LABS: Troponin I 0.143 ng/mL (0.000-0.034)
--- NOTE | 2023-10-13 08:36 | PC.NURSE ---
Magdalene from [place] states she will be on her way to place a midline with an ETA of 1.5 hours.
--- NOTE | 2023-10-13 08:50 | ED.SOB ---
HPI - SOB/Dyspnea General Chief Complaint: Shortness of Breath/Dyspnea Stated Complaint: SOB Time Seen by Provider: 10/13/23 07:05 History of Present Illness HPI Narrative: patient is a 78-year-old female who presents ER from home with hypoxia. Discharged from hospital yesterday. Patient wheezing received nebulizer treatment EN route. Patient endorses cough that is nonproductive. Denies fevers or chills. She has no chest pain. According EMS patient's [place] is [place] in heart [place] [facility]. Their pet birds freely flying around the house and it is littered with trash. Related Data Home Medications Medication Instructions Recorded Confirmed amlodipine 5 mg tablet 5 mg PO DAILY 08/24/22 10/07/23 budesonide-formoterol HFA 160 1 puff inhalation BID 08/24/22 10/07/23 mcg-4.5 mcg/actuation aerosol inhaler (Symbicort) celecoxib 100 mg capsule 100 mg PO DAILY 08/24/22 10/07/23 duloxetine 30 mg capsule,delayed 30 mg PO DAILY 08/24/22 10/07/23 release lovastatin 10 mg tablet 10 mg PO QHS 08/24/22 10/07/23 aspirin 81 mg capsule 81 mg PO DAILY 08/25/22 10/07/23 cholecalciferol (vitamin D3) 25 25 mcg PO DAILY 08/25/22 10/07/23 mcg (1,000 unit) tablet (Vitamin D3) lorazepam 1 mg tablet 1 mg PO Q6H PRN Anxiety 10/07/23 10/07/23 Allergies Allergy/AdvReac Type Severity Reaction Status Date / Time No Known Allergies Allergy Mild Verified 10/13/23 07:20 Review of Systems Review of Systems: All systems reviewed & are unremarkable except as noted in HPI and below Constitutional: Constitutional: Denies chills, Reports fatigue and Denies fever(s) ENT: Denies nasal congestion and Denies sore throat Cardiovascular: Cardiovascular: Denies chest pain, Denies rapid heart rate and Denies radiating jaw, neck or arm pain Respiratory: Respiratory: Reports chest congestion, Reports cough, Reports dyspnea and Reports wheezing Gastrointestinal: Gastrointestinal: Reports no additional gastrointestinal complaints Genitourinary: Genitourinary: Reports no additional female genitourinary complaints PMFSH Past Medical History Medical History Asthma COPD (chronic obstructive pulmonary disease) Depression with anxiety Hyperlipidemia Hypertension Psoriasis Rhabdomyolysis (07/2022) Tobacco abuse Family History Family History Sibling Diabetes mellitus Family history of liver disease Other Family history of arthritis Family history of congenital heart disease Family history of malignant neoplasm Hypertension Social History Social History Social History: Surrogate medical decision maker: Saqib Stratton, sibling. Code status: Full code. Smoking packs per day: 1 Smoking cigarettes per day: 20.0 Years smoked: 60 Smoking pack-years: 60.00 Smoking status: Current every day smoker Tobacco type: cigarettes Alcohol intake: never Substance use: never Substance use type: does not use Do You Feel Safe in your Home?: Yes Lack of Transportation: No Lack of Food: Never True Current Housing: I Do Not Have Housing Concerned About Future Housing: No Difficulty Paying Gas/Electric Bills: No Difficulty Paying for Meds: No Currently Unemployed: No Education: High School Diploma/GED Difficulty w/ Childcare or Family Care: No Spiritual care concerns: No Exam Narrative: GENERAL: Chronically ill-appearing, morbidly obese, and in no acute distress. HEAD: Normocephalic, atraumatic. ENT: Mucous membranes moist. NECK: Supple. CHEST: Coarse rales and wheezing bilaterally. Mild respiratory distress. HEART: Regular rate and rhythm. Normal peripheral pulses. ABDOMEN: Soft, nontender, nondistended. EXTREMITIES: Normal range of motion. 2+ edema. SKIN: Warm, dry. scattered bruising from previous IVs NEURO: Alert and oriented x3. PSYCH: Normal mood
[2023-10-13] MEDS: ASPIRIN 81 MG CHEWABLE TABLET 324 MG PO (09:02)
[2023-10-13 10:45] LABS: Troponin I 0.204 ng/mL (0.000-0.034)
--- NOTE | 2023-10-13 11:08 | PC.NURSE ---
Lidocaine administered by Hand RN
[2023-10-13 12:59] LABS: Appearance Urine Clear (Clear); Bacteria Urine None Seen /hpf; Bilirubin Urine Negative (Negative); Blood Urine Negative (Negative); Color Urine Yellow (Yellow); Glucose Urine UA Negative (Negative); Hyaline Casts Urine Present /lpf; Ketones Urine Negative (Negative); Leukocyte Esterase Ur Negative LEU/UL (Negative); Need Manual Microscopic Reviewed; Nitrate Urine Negative (Negative); Protein Urine Trace mg/dL (Negative); RBC Urine 0-2 /hpf (0-2); Specific Grav Ur 1.018 (1.001-1.035); Squamous Epithelial Cell Urine None Seen /hpf (Few); WBC Urine 0-5 /hpf (0-3); pH Urine 5.5 (5.0-9.0)
[2023-10-13 13:00] LABS: Add Urine Microscopic? YES
--- NOTE | 2023-10-13 13:04 | PC.NURSE ---
Yoseph Pérez, phone number is [phone], is the pts neighbor who helps take care of the pt. Yoseph expressed multiple concerns of the pts living conditions. Yoseph states the pts house is in hoarding conditions stating the pts house has several mice and mice droppings, there is bird seed and bird droppings around the house. He states there is a lot if trash in the pts home. Yoseph is concerned the pts living conditions are contributing to the pts poor health condition.
[2023-10-13] MEDS: IPRATROPIUM BR 0.02% INH SOLN 0.5 MG/2.5 ML VIAL INHALATION (13:39)
[2023-10-13] MEDS: LEVALBUTEROL NEB 1.25 MG/3 ML 0.63 MG INHALATION (13:39)
--- NOTE | 2023-10-13 13:40 | ECG_ITS ---
Measurements Intervals [place] Rate: 64 P: 59 MS: 186 QRS: 14 QRSD: 84 T: 104 QT: 412 QTc: 425 Interpretive Statements SINUS RHYTHM ATRIAL PREMATURE COMPLEX ST-T WAVE ABNORMALITY IN HIGH LATERAL LEADS- CONSIDER ISCHEMIA BASELINE ARTIFACT- V4 ABNORMAL ECG COMPARED TO ECG 10/13/2023 06:26:07 NO SIGNIFICANT CHANGES Electronically Signed On 10-13-2023 16:09:26 CDT by Watson Knapp D.O.
--- NOTE | 2023-10-13 13:57 | PM.IMHP ---
H&P: HPI History of Present Illness Date/Time: 10/13/23 13:57 Chief Complaint: SOB, Hypoxia Narrative: 78 y/o F presents here with SOB and hypoxia with PMH of asthma/COPD, depression/anxiety, HLD, HTN, psoriasis, rhabdomyolysis (2022), and tobacco use. Patient presents here via EMS from home for evaluation of recurrent SOB and found to be hypoxic at 86% on RA. EMS administered DuoNeb en route and arrived 97% on RA. Patient was discharged yesterday around 5pm. When she got home she cleaned up. Overnight she got up to use the restroom 3 times overnight and was SOB. However, after the 3rd time she was unable to catch her breath despite rest. Continues to have conversational dyspnea. Cough has reduced recently but continues to try to clear her chest congestion but is unable to clear the secretions. Patient tried Mucinex and increasing clears, but now has increased LE swelling but has been ongoing since last admission. Denies fever or body aches. Having chills today. Reports nausea, vomiting, indigestion - reports that she thinks she ate too much. Reoccurred 3 times yesterday afternoon. Emesis was food particulate and non-bilious/non-bloody. Neighbor called to voice concerns that she has pet birds loose in the home and there is mess/food from birds everywhere. Patient reports a strong odor from the bathroom but was unable to identify the source, unable to elaborate on what it smelled like. Later when she used the bathroom it smelled like eucalyptus . Unclear if odor triggered shortness of breath episodes, patient suspects it did because she was not SOB ambulating to the restroom but would become SOB once in the room. Reports poise pee pads on the floor in the restroom that were used and some were in a trash bag sitting in the restroom. Recently admitted from 10/06-10/11 for SOB and tachycardia. Found to be in AFib RVR that was difficult to rate control, elevated LFTs thought to be secondary AFib and was urged to follow with PCP and burrer hand, echo completed and showed EF of 55-60% (was noncompliant with diuretic), SAVAGE, and COPD exacerbation was on azithromycin and prednisone while inpatient. Discharged with Sotalol and Eliquis. Initial VS at presentation: Is 7.1? F, HR 70, RR 23, 138/82, 97% on RA. ED workup showed: WBC 19.0, no anemia, anaerobic 2, creatinine 0.9 continue glucose will through leuks, AST 74, ALT 189, initial troponin 0.143, BNP 3 650, and UA unremarkable. CXR showed unchanged mild right basilar atelectasis/scarring. CTA of the chest showed no PE, mild pulmonary edema and small bilateral pleural effusions, and mild bronchial wall thickening in the bilateral lower lobes which could represent pulmonary edema, bronchitis, or reactive airway disease/asthma. 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 Code status: Full code. Smoking packs per day: 1 Smoking cigarettes per day: 20.0 Years smoked: 60 Smoking pack-years: 60.00 Smoking status: Current every day smoker Alcohol intake: never Substance use: never Substance use type: does not use Do You Feel Safe i
[2023-10-13] MEDS: SALINE LOCK FLUSH 10 ML IV PUSH ×2 (14:00→22:20)
--- NOTE | 2023-10-13 14:49 | ECG_ITS ---
Measurements Intervals [place] Rate: 80 P: 53 TN: 166 QRS: -6 QRSD: 79 T: 111 QT: 378 QTc: 438 Interpretive Statements SINUS RHYTHM ATRIAL PREMATURE COMPLEX CANNOT RULE OUT SEPTAL INFARCT, AGE INDETERMINATE ST-T WAVE ABNORMALITY IN HIGH LATERAL LEADS- CONSIDER ISCHEMIA BASELINE ARTIFACT- I, II, III, AVL, AVF ABNORMAL ECG COMPARED TO ECG 10/13/2023 09:39:50 NO SIGNIFICANT CHANGES Electronically Signed On 10-13-2023 16:12:42 CDT by Watson Knapp D.O.
--- NOTE | 2023-10-13 15:36 | PC.NURSE ---
Dinner tray with heart healthy diet ordered for pt.
[2023-10-13] MEDS: AZITHROMYCIN 500 MG/NS 250 ML 500 MG/250 ML BAG 250 MG IVPB (15:52)
--- NOTE | 2023-10-13 15:52 | PC.NURSE ---
Delay in antibiotic administration due to needing the second set of blood cultures. Pt was a difficult stick and phlebotomy was needed to draw the second set.
[2023-10-13 19:12] LABS: Lactic Acid Reflex 1.5 mmol/L (0.7-2.0)
--- NOTE | 2023-10-13 19:16 | ADMGEN ---
This patient, Merly Stratton, was admitted to IMU Room 209-01. Patient/family oriented to hospital policies and general routines including ID bracelet, bed and alarms, visiting hours, pain management, procedures, bathroom and other care routines, personal items, smoking policy, room service/diet, and visiting hours. Information on how to activate the Rapid Response Team has been discussed. Patient/Family are encouraged to report perceived risks to care and to ask questions if they do not understand what they are told or what they should do.
[2023-10-13] MEDS: APIXABAN 5 MG TABLET PO (22:19)
[2023-10-13] MEDS: amLODIPine BESYLATE 5 MG TABLET PO (22:19)
[2023-10-13] MEDS: DULoxetine HCL 30 MG CAPSULE.DR PO (22:20)
[2023-10-13] MEDS: SOTALOL HCL 80 MG TABLET PO (22:20)
[2023-10-13] MEDS: LOVASTATIN 10 MG TABLET PO (22:20)
[2023-10-13] MEDS: LORazepam (*CRX) 1 MG TABLET PO (22:21)
[2023-10-14] VITALS (25 sets, daily range): BP systolic 105–149; BP diastolic 58–94; PULSE 60–93; RESP 16–22; TEMP 36.1–36.8; O2SAT 95–99
[2023-10-14] MEDS: SALINE LOCK FLUSH 20 ML IV PUSH (04:17)
[2023-10-14] MEDS: SALINE LOCK FLUSH 10 ML IV PUSH ×3 (04:17→20:44)
[2023-10-14] MEDS: LORazepam (*CRX) 1 MG TABLET PO ×3 (04:26→19:30)
[2023-10-14 04:27] LABS: Basophils Absolute Auto 0.1 K/mm3 (0.0-0.1); Basophils Percent Auto 0.3 % (0.2-1.2); Eosinophils Absolute Auto 0.1 K/mm3 (0-0.3); Eosinophils Percent Auto 0.5 % (0-4.4); Hematocrit 44.5 % (37.0-47.0); Hemoglobin 14.2 g/dL (12.0-15.0); Immature Granulocyte Absolute 0.09 K/mm3 (0.00-0.031); Immature Granulocyte Percent A 0.5 % (0-0.5); Lymphocytes Absolute Auto 1.37 K/mm3 (0.9-3.2); Lymphocytes Percent Auto 7.8 % (18.3-44.2); Mean Corpuscular HGB Conc 31.9 g/dl (32-36); Mean Corpuscular Hemoglobin 30.7 pg (26-34); Mean Corpuscular Volume 96.3 fl (80-100); Mean Platelet Volume 9.9 fl (7.4-10.4); Monocytes Absolute Auto 1.1 K/mm3 (0.1-0.6); Monocytes Percent Auto 6.1 % (2.6-8.5); Neutrophils Absolute Auto 14.8 K/mm3 (1.3-6.7); Neutrophils Percent Auto 84.8 % (45.5-73.1); Platelet Count Result 285 k/mm3 (150-375); Red Blood Count 4.62 M/mm3 (4.2-5.4); Red Cell Distribution Width 12.9 % (11.5-14.5); White Blood Count 17.5 K/mm3 (4.5-10.0)
[2023-10-14 04:41] LABS: Alanine Aminotransferase 168 U/L (6-35); Albumin Level 3.7 g/dL (3.5-5.1); Alkaline Phosphatase 103 U/L (38-126); Anion Gap 2 mmol/L (8-16); Aspartate Amino Transferase 46 U/L (14-36); Blood Urea Nitrogen 28 mg/dL (7-17); Calcium 9.1 mg/dL (8.4-10.2); Carbon Dioxide 31 mmol/L (22-30); Chloride 103 mmol/L (98-107); Estimated CRCL calculation 63 ml/min; Estimated Glomerular Filt Rate > 60; Glucose 122 mg/dL (65-110); Potassium 4.9 mmol/L (3.4-5.0); Sodium 136 mmol/L (137-145)
[2023-10-14] MEDS: IPRATROPIUM BR 0.02% INH SOLN 0.5 MG/2.5 ML VIAL INHALATION ×3 (07:57→20:01)
[2023-10-14] MEDS: LEVALBUTEROL NEB 1.25 MG/3 ML 0.63 MG INHALATION ×3 (07:57→20:01)
[2023-10-14] MEDS: FLUTICASONE/SALMETEROL 115-21 MCG INHALER 1 PUFF 2 PUFF INHALATION ×2 (08:02→20:01)
[2023-10-14] MEDS: DULoxetine HCL 30 MG CAPSULE.DR PO (08:34)
[2023-10-14] MEDS: amLODIPine BESYLATE 5 MG TABLET PO (08:34)
[2023-10-14] MEDS: CHOLECALCIFEROL 1,000 UNITS TABLET 1000 UNITS PO (08:34)
[2023-10-14] MEDS: SOTALOL HCL 80 MG TABLET PO ×2 (08:34→20:44)
[2023-10-14] MEDS: ASPIRIN 81 MG ENTERIC TABLET PO (08:36)
[2023-10-14] MEDS: AZITHROMYCIN 500 MG/NS 250 ML 500 MG/250 ML BAG 250 MG IVPB (08:38)
--- NOTE | 2023-10-14 12:49 | PM.IMPN ---
Progress Note: A&P Assessment and Plan (1) Sepsis: Code(s): A41.9 - Sepsis, unspecified organism Status: Acute Assessment and Plan: - meets SIRS criteria: RR, WBC. No tachycardia or hypotension. - lactic acid: 1.5 - WBC 19, uptrending compared to previous - will hold on 30 mL/kg, known CHF with increased LE edema at present - suspected source: respiratory, treating as COPD exacerbation and PNA - started on ceftriaxone and azithromycin on 10/12 - blood cultures drawn on 10/12 - sputum culture ordered if obtainable - UA: unremarkable - CXR: Unchanged mild right basilar atelectasis/scarring with small right pleural effusion versus more likely additional pleural parenchymal scarring with pleural thickening at the lateral right lower lung zone. - CTA Chest: 1. No pulmonary embolism. 2. Minimal pulmonary edema and small bilateral pleural effusions. 3. Mild bronchial wall thickening in the bilateral lower lobes which could be related to mild pulmonary edema, bronchitis or reactive airway disease/asthma. - EKG, initial: Sinus rhythm with sinus arrhythmia, cannot rule out septal infarct age indeterminate, ST-T-wave abnormality in high lateral leads, baseline artifact. When compared to EKG done on 10/12/2023 there is sinus rhythm now present and sinus arrhythmia now present. - admit to IMU with telemetry (2) Hypoxia: Code(s): R09.02 - Hypoxemia Status: Acute Assessment and Plan: - see above - supplemental O2 PRN, no current requirement - monitor O2 saturation - suspect COPD exacerbation, no PNA seen on CXR or CTA. however there is moderate leukocytosis, may be reactive from steroids during previous admission. - started on ceftriaxone and azithromycin on 10/1210/14/23: Continue Abz (3) COPD (chronic obstructive pulmonary disease): Code(s): J44.9 - Chronic obstructive pulmonary disease, unspecified Status: Acute Assessment and Plan: - acute on chronic - started on ceftriaxone and azithromycin for exacerbation - add prednisone 40 mg PO daily x7, previously on 40 mg PO from 10/08-10/10 - MRSA negative on 10/07/2023 - sputum culture ordered - continue home medications: Symbicort (4) Elevated troponin: Code(s): R79.89 - Other specified abnormal findings of blood chemistry Status: Acute Assessment and Plan: - troponin <0.012 x3 during previous admission - troponin: 0.143 -> 0.204 -> 0.250 - EKG, initial: Sinus rhythm with sinus arrhythmia, cannot rule out septal infarct age indeterminate, ST-T-wave abnormality in high lateral leads, baseline artifact. When compared to EKG done on 10/12/2023 there is sinus rhythm now present and sinus arrhythmia now present. - EKG, repeat (1st): Sinus rhythm, atrial premature complex, ST-T-wave abnormality in high lateral leads consider ischemia, baseline artifact. When compared to EKG done previously today there are no significant changes. - EKG, repeat (2nd): Sinus rhythm, atrial premature complex, cannot rule out septal infarct age indeterminate, ST-T-wave abnormality in high lateral leads consider ischemia, baseline artifact. When compared to previous done today, there are no significant changes. - ASA 324 given in ED - no active chest pain - previous echo (10/08/23): EF 55-60% with normal LV systolic function LV diastolic function is abnormal AFib No pulmonary hypertension See full read out for further details - recent KATE/cardioversion on 10/10 - consult to cardiology placed for flipped T wave and elevated troponin - telemetry monitoring (5) Atrial fibrillation with rapid ventricular response: Code(s): I48.91 - Unspecified atrial fibrillation Status: Acute Assessment and Plan: - EKG, initial: Sinus rhythm with sinus arrhythmia, cannot rule out septal infarct age indeterminate, ST-T-wave abnormality in high lateral leads, baseline artifact. When compared to EKG done on 10/12/2023 there is s
--- NOTE | 2023-10-14 13:28 | ECG_ITS ---
Measurements Intervals [place] Rate: 72 P: 38 MD: 165 QRS: -49 QRSD: 110 T: 157 QT: 487 QTc: 534 Interpretive Statements SINUS RHYTHM LEFT ANTERIOR FASCICULAR BLOCK LOW QRS VOLTAGE IN PRECORDIAL LEADS CANNOT RULE OUT SEPTAL INFARCT, AGE INDETERMINATE ST-T WAVE ABNORMALITY IN ANT/HIGH LAT LEADS- CONSIDER ISCHEMIA BASELINE ARTIFACT- I, II, III, AVR, AVL, V1 ABNORMAL ECG COMPARED TO ECG 10/13/2023 14:54:05 LEFT ANTERIOR FASCICULAR BLOCK Electronically Signed On 10-14-2023 17:28:42 CDT by Watson Knapp D.O.
--- NOTE | 2023-10-14 13:29 | PM.CNCAR ---
Assessment and Plan Assessment and plan (1) Elevated troponin: Code(s): R79.89 - Other specified abnormal findings of blood chemistry Status: Acute Assessment and Plan: Elevated troponin in the setting of sepsis, hypoxia, and pneumonia. No complaints of chest pain. Her EKG does show new T wave inversions in leads V2, V3. Likely demand ischemia. Cannot rule out underlying CAD, she certainly has risk factors. In the absence of any anginal symptoms, no indication for inpatient ischemic evaluation. Will plan for outpatient CCTA to evaluate for CAD when she has recovered from pneumonia. --Continue ASA 81mg daily --Continue statin (2) Atrial fibrillation with rapid ventricular response: Code(s): I48.91 - Unspecified atrial fibrillation Status: Acute Assessment and Plan: Remains in sinus rhythm on sotalol. Continue sotalol and apixaban. Plan Cardiology will sign off please call with any questions. History of Present Illness History of Present Illness Consult date/time: 10/14/23 13:29 Requesting physician: Kati Almanza APRN Consult reason: Other (elevated troponin, abn ekg) Reason For Visit: NSTEMI/Pneumonia/COPD Narrative: Merly Stratton is a 78 year old patient with atrial fibrillation who was recently discharged from [facility] following electrical cardioversion and sotalol loading. Patient states she was home for a short period of time before experiencing significant shortness of breath with exertion. She returns to the hospital because of shortness of breath and has been found to have pneumonia and is being treated for this. Cardiology has been asked to see her because of elevated troponin levels and T wave inversion on her EKG. When asked if she was having any chest pain the patient states, I can't remember. At the time of my evaluation she is lying comfortably in bed and has no complaints - she denies any active chest pain. Review of Systems Review of Systems: All systems reviewed & are unremarkable except as noted in HPI and below PMFSH Past Medical History Medical History SAVAGE (acute kidney injury) (08/24/22) [employer]ite [employer]er 1.7, 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 Code status: Full code. Smoking packs per day: 1 Smoking cigarettes per day: 20.0 Years smoked: 60 Smoking pack-years: 60.00 Smoking status: Current every day smoker Alcohol intake: never Substance use: never Substance use type: does not use Do You Feel Safe in your Home?: Yes Lack of Transportation: No Lack of Food: Never True Current Housing: I Do Not Have Housing Concerned About Future Housing: No Difficulty Paying Gas/Electric Bills: No Difficulty Paying for Meds: No Currently Unemployed: No Education: High School Diploma/GED Difficulty w/ Childcare or Family Care: No Spiritual care concerns: No Meds Home Medications and Allergies Home Medications Medication Instructions Recorded Confirmed Type amlodipine 5 mg tablet 5 mg PO DAILY 08/24/22 10/13/23 History budesonide-formoterol HFA 160 1 puff inhalation BID 08/24/22 10/13/23 History mcg-4.5 mcg/actuation aerosol inhaler (Symbicort) duloxetine 30 mg capsule,delayed 30 mg PO DAILY 08/24/22 10/13/23 History release lovastatin 10
[2023-10-14] MEDS: APIXABAN 5 MG TABLET PO ×2 (14:02→20:44)
[2023-10-14] MEDS: predniSONE 20 MG TABLET 40 MG PO (14:02)
[2023-10-14] MEDS: FUROSEMIDE INJ 40 MG/4 ML VIAL IV PUSH ×2 (14:03→18:33)
[2023-10-14] MEDS: guaiFENesin/DEXTROMETHORPHAN 10 ML UDC PO ×2 (18:33→23:13)
[2023-10-14] MEDS: LOVASTATIN 10 MG TABLET PO (20:44)
[2023-10-15] VITALS (25 sets, daily range): BP systolic 106–130; BP diastolic 55–82; PULSE 58–76; RESP 16–22; TEMP 36.1–36.6; O2SAT 91–100
[2023-10-15] MEDS: LEVALBUTEROL NEB 1.25 MG/3 ML 0.63 MG INHALATION ×4 (03:05→20:50)
[2023-10-15] MEDS: IPRATROPIUM BR 0.02% INH SOLN 0.5 MG/2.5 ML VIAL INHALATION ×4 (03:05→20:50)
[2023-10-15] MEDS: LORazepam (*CRX) 1 MG TABLET PO ×4 (03:12→22:29)
[2023-10-15] MEDS: SALINE LOCK FLUSH 10 ML IV PUSH ×2 (05:21→14:05)
[2023-10-15] MEDS: guaiFENesin/DEXTROMETHORPHAN 10 ML UDC PO ×3 (05:21→16:09)
[2023-10-15] MEDS: FLUTICASONE/SALMETEROL 115-21 MCG INHALER 1 PUFF 2 PUFF INHALATION ×2 (08:06→20:50)
[2023-10-15] MEDS: SOTALOL HCL 80 MG TABLET PO ×2 (08:31→20:32)
[2023-10-15] MEDS: CHOLECALCIFEROL 1,000 UNITS TABLET 1000 UNITS PO (08:31)
[2023-10-15] MEDS: ASPIRIN 81 MG ENTERIC TABLET PO (08:31)
[2023-10-15] MEDS: DULoxetine HCL 30 MG CAPSULE.DR PO (08:31)
[2023-10-15] MEDS: AZITHROMYCIN 500 MG/NS 250 ML 500 MG/250 ML BAG 250 MG IVPB (08:32)
[2023-10-15] MEDS: amLODIPine BESYLATE 5 MG TABLET PO (08:32)
[2023-10-15] MEDS: APIXABAN 5 MG TABLET PO ×2 (08:32→20:32)
[2023-10-15] MEDS: predniSONE 20 MG TABLET 40 MG PO (10:46)
[2023-10-15] MEDS: FUROSEMIDE INJ 40 MG/4 ML VIAL IV PUSH ×2 (10:46→16:05)
--- NOTE | 2023-10-15 12:55 | PC.NURSE ---
This patient, Merly Stratton, was transferred to [[facility]] on 10/15/23 at 1255. Personal belongings sent with patient. Report given to [ZAIDA Boudreaux @ [phone] ]. Appropriate documentation sent with patient.
--- NOTE | 2023-10-15 15:35 | PM.IMPN ---
Progress Note: A&P Assessment and Plan (1) Sepsis: Code(s): A41.9 - Sepsis, unspecified organism Status: Acute Assessment and Plan: - meets SIRS criteria: RR, WBC. No tachycardia or hypotension. - lactic acid: 1.5 - WBC 19, uptrending compared to previous - will hold on 30 mL/kg, known CHF with increased LE edema at present - suspected source: respiratory, treating as COPD exacerbation and PNA - started on ceftriaxone and azithromycin on 10/12 - blood cultures drawn on 10/12 - sputum culture ordered if obtainable - UA: unremarkable - CXR: Unchanged mild right basilar atelectasis/scarring with small right pleural effusion versus more likely additional pleural parenchymal scarring with pleural thickening at the lateral right lower lung zone. - CTA Chest: 1. No pulmonary embolism. 2. Minimal pulmonary edema and small bilateral pleural effusions. 3. Mild bronchial wall thickening in the bilateral lower lobes which could be related to mild pulmonary edema, bronchitis or reactive airway disease/asthma. - EKG, initial: Sinus rhythm with sinus arrhythmia, cannot rule out septal infarct age indeterminate, ST-T-wave abnormality in high lateral leads, baseline artifact. When compared to EKG done on 10/12/2023 there is sinus rhythm now present and sinus arrhythmia now present. - admit to IMU with telemetry (2) Hypoxia: Code(s): R09.02 - Hypoxemia Status: Acute Assessment and Plan: - see above - supplemental O2 PRN, no current requirement - monitor O2 saturation - suspect COPD exacerbation, no PNA seen on CXR or CTA. however there is moderate leukocytosis, may be reactive from steroids during previous admission. - started on ceftriaxone and azithromycin on 10/1210/14/23: Continue Abz (3) COPD (chronic obstructive pulmonary disease): Code(s): J44.9 - Chronic obstructive pulmonary disease, unspecified Status: Acute Assessment and Plan: - acute on chronic - started on ceftriaxone and azithromycin for exacerbation - add prednisone 40 mg PO daily x7, previously on 40 mg PO from 10/08-10/10 - MRSA negative on 10/07/2023 - sputum culture ordered - continue home medications: Symbicort (4) Elevated troponin: Code(s): R79.89 - Other specified abnormal findings of blood chemistry Status: Acute Assessment and Plan: - troponin <0.012 x3 during previous admission - troponin: 0.143 -> 0.204 -> 0.250 - EKG, initial: Sinus rhythm with sinus arrhythmia, cannot rule out septal infarct age indeterminate, ST-T-wave abnormality in high lateral leads, baseline artifact. When compared to EKG done on 10/12/2023 there is sinus rhythm now present and sinus arrhythmia now present. - EKG, repeat (1st): Sinus rhythm, atrial premature complex, ST-T-wave abnormality in high lateral leads consider ischemia, baseline artifact. When compared to EKG done previously today there are no significant changes. - EKG, repeat (2nd): Sinus rhythm, atrial premature complex, cannot rule out septal infarct age indeterminate, ST-T-wave abnormality in high lateral leads consider ischemia, baseline artifact. When compared to previous done today, there are no significant changes. - ASA 324 given in ED - no active chest pain - previous echo (10/08/23): EF 55-60% with normal LV systolic function LV diastolic function is abnormal AFib No pulmonary hypertension See full read out for further details - recent KATE/cardioversion on 10/10 - consult to cardiology placed for flipped T wave and elevated troponin - telemetry monitoring Per Cardiology Elevated troponin in the setting of sepsis, hypoxia, and pneumonia.? No complaints of chest pain.? Her EKG does show new T wave inversions in leads V2, V3.? Likely demand ischemia.? Cannot rule out underlying CAD, she certainly has risk factors.? In the absence of any anginal symptoms, no indication for inpatient ischemic evaluation.? Will plan for outpatient CCTA to
[2023-10-15] MEDS: LOVASTATIN 10 MG TABLET PO (20:32)
[2023-10-16] VITALS (18 sets, daily range): BP systolic 104–122; BP diastolic 40–64; PULSE 59–78; RESP 16–20; TEMP 36.4–36.9; O2SAT 94–100
[2023-10-16] MEDS: LEVALBUTEROL NEB 1.25 MG/3 ML 0.63 MG INHALATION ×4 (01:23→20:31)
[2023-10-16] MEDS: IPRATROPIUM BR 0.02% INH SOLN 0.5 MG/2.5 ML VIAL INHALATION ×4 (01:23→20:31)
[2023-10-16] MEDS: guaiFENesin/DEXTROMETHORPHAN 10 ML UDC PO ×3 (06:02→16:26)
[2023-10-16] MEDS: SALINE LOCK FLUSH 10 ML IV PUSH ×3 (06:02→20:53)
[2023-10-16] MEDS: FLUTICASONE/SALMETEROL 115-21 MCG INHALER 1 PUFF 2 PUFF INHALATION ×2 (07:15→20:31)
[2023-10-16 09:03] LABS: Alanine Aminotransferase 87 U/L (6-35); Albumin Level 3.5 g/dL (3.5-5.1); Alkaline Phosphatase 64 U/L (38-126); Anion Gap 2 mmol/L (8-16); Aspartate Amino Transferase 28 U/L (14-36); Bilirubin,Total 1.1 mg/dL (0.2-1.3); Blood Urea Nitrogen 26 mg/dL (7-17); Calcium 8.6 mg/dL (8.4-10.2); Carbon Dioxide 36 mmol/L (22-30); Chloride 100 mmol/L (98-107); Estimated CRCL calculation 60 ml/min; Estimated Glomerular Filt Rate 54; Glucose 152 mg/dL (65-110); Magnesium 1.9 mg/dL (1.6-2.3); Potassium 3.6 mmol/L (3.4-5.0); Sodium 138 mmol/L (137-145)
[2023-10-16 09:09] LABS: Basophils Absolute Auto 0.1 K/mm3 (0.0-0.1); Basophils Percent Auto 0.3 % (0.2-1.2); Eosinophils Absolute Auto 0.1 K/mm3 (0-0.3); Eosinophils Percent Auto 0.9 % (0-4.4); Hematocrit 45.8 % (37.0-47.0); Hemoglobin 14.4 g/dL (12.0-15.0); Immature Granulocyte Absolute 0.06 K/mm3 (0.00-0.031); Immature Granulocyte Percent A 0.4 % (0-0.5); Lymphocytes Absolute Auto 2.18 K/mm3 (0.9-3.2); Lymphocytes Percent Auto 14.3 % (18.3-44.2); Mean Corpuscular HGB Conc 31.4 g/dl (32-36); Mean Corpuscular Hemoglobin 30.4 pg (26-34); Mean Corpuscular Volume 96.6 fl (80-100); Mean Platelet Volume 10.6 fl (7.4-10.4); Monocytes Absolute Auto 0.7 K/mm3 (0.1-0.6); Monocytes Percent Auto 4.3 % (2.6-8.5); Neutrophils Absolute Auto 12.2 K/mm3 (1.3-6.7); Neutrophils Percent Auto 79.8 % (45.5-73.1); Platelet Count Result 263 k/mm3 (150-375); Red Blood Count 4.74 M/mm3 (4.2-5.4); Red Cell Distribution Width 12.9 % (11.5-14.5); White Blood Count 15.2 K/mm3 (4.5-10.0)
[2023-10-16] MEDS: ASPIRIN 81 MG ENTERIC TABLET PO (09:21)
[2023-10-16] MEDS: FUROSEMIDE INJ 40 MG/4 ML VIAL IV PUSH ×2 (09:21→16:26)
[2023-10-16] MEDS: SOTALOL HCL 80 MG TABLET PO ×2 (09:21→20:52)
[2023-10-16] MEDS: DULoxetine HCL 30 MG CAPSULE.DR PO (09:21)
[2023-10-16] MEDS: predniSONE 20 MG TABLET 40 MG PO (09:21)
[2023-10-16] MEDS: amLODIPine BESYLATE 5 MG TABLET PO (09:21)
[2023-10-16] MEDS: LORazepam (*CRX) 1 MG TABLET PO ×3 (09:22→22:16)
[2023-10-16] MEDS: CHOLECALCIFEROL 1,000 UNITS TABLET 1000 UNITS PO (09:22)
[2023-10-16] MEDS: APIXABAN 5 MG TABLET PO ×2 (09:22→20:52)
[2023-10-16] MEDS: AZITHROMYCIN 500 MG/NS 250 ML 500 MG/250 ML BAG 250 MG IVPB (09:24)
--- NOTE | 2023-10-16 12:42 | PM.IMPN ---
Progress Note: A&P Assessment and Plan (1) Sepsis: Code(s): A41.9 - Sepsis, unspecified organism Status: Acute (2) Hypoxia: Code(s): R09.02 - Hypoxemia Status: Acute (3) COPD (chronic obstructive pulmonary disease): Code(s): J44.9 - Chronic obstructive pulmonary disease, unspecified Status: Acute (4) Elevated troponin: Code(s): R79.89 - Other specified abnormal findings of blood chemistry Status: Acute (5) Atrial fibrillation with rapid ventricular response: Code(s): I48.91 - Unspecified atrial fibrillation Status: Acute (6) Hypertension: Code(s): I10 - Essential (primary) hypertension Status: Acute Plan 78 y/o F presents here with SOB and hypoxia with PMH of asthma/COPD, depression/anxiety, HLD, HTN, psoriasis, rhabdomyolysis (2022), and tobacco use presented with worsening shortness of breath, hypoxia. Patient was discharged 1 day prior to this admission. ?CTA of the chest showed no PE, mild pulmonary edema and small bilateral pleural effusions, and mild bronchial wall thickening in the bilateral lower lobes which could represent pulmonary edema, bronchitis, or reactive airway disease/asthma. 1. Acute hypoxic respiratory failure: Currently on room air No evidence of sepsis CT chest suggestive of possible pulmonary edema/bronchitis/reactive airway disease Monitor leukocytosis Continue with ceftriaxone and azithromycin to complete total 5 day course Continue with steroid Continue with IV Lasix Continue with DuoNebs 2. Elevated troponin: Appreciate Cardiology help Continue with aspirin, statin Outpatient follow-up for ischemic evaluation once acute issues have resolved 3. AFib with RVR: Currently rate controlled Continue with sotalol, Eliquis 4. Hypertension: Continue with Norvasc 5. Code status: Full 6. DVT prophylaxis: Continue with Eliquis 7. Disposition: Pending improvement Time Spent With Patient Time with patient: 15 - 25 minutes Subjective Date/time seen: 10/16/23 12:42 Interval history: No acute events overnight Review of Systems Review of Systems: All systems reviewed & are unremarkable except as noted in HPI and below Constitutional: Constitutional: Reports fatigue and Reports weakness Eyes: Eyes: Reports no additional eye complaints ENT: Denies dysphagia, Denies epistaxis and Denies neck pain Cardiovascular: Cardiovascular: Reports leg edema, Reports dyspnea and Reports dyspnea on exertion Respiratory: Respiratory: Denies hemoptysis, Reports dyspnea and Reports dyspnea on exertion Gastrointestinal: Gastrointestinal: Denies dysphagia, Denies vomiting and Denies hematemesis Musculoskeletal: Musculoskeletal: Denies back pain and Denies neck pain Integumentary/Breasts: Skin/Breast: Reports dry skin Neurologic: Reports system reviewed and no additional complaints, except as documented, Denies Abnormal speech present, Denies confusion and Reports weakness Psychiatric: Psychiatric: Reports no additional psychiatric complaints and Denies confusion Endocrine: Endocrine: Reports fatigue Exam Const: General: comfortable and no acute distress; No confusion Orientation/consciousness: No confusion Other: , female, obese body habitus, disheveled HENMT: Face/Nose/Sinus: Normal nares present Mouth: Yes moist mucous membranes Eyes: General: appearance normal, both eyes and all related structures Sclera: sclerae normal Pupils: Equal, round and reactive pupils present EOM: EOMs intact bilaterally Resp: Other: Mild WOB without accessory muscle use or pursed lip breathing, coarse at bases best heard with expiration, no wheeze. Cardio: Rate: regular rate Rhythm: regular rhythm GI: Auscultation: normal bowel sounds Other: Rounded, nontender Skin: General skin exam: normal color and rashes Rashes: rashes noted Other: RUE -erythematous patch with silver/white scaling, [place]
[2023-10-16] MEDS: LOVASTATIN 10 MG TABLET PO (20:52)
[2023-10-17] VITALS (10 sets, daily range): BP systolic 118–148; BP diastolic 60–82; PULSE 52–71; RESP 16–18; TEMP 36.2–36.3; O2SAT 93–96
[2023-10-17] MEDS: guaiFENesin/DEXTROMETHORPHAN 10 ML UDC PO ×3 (01:12→11:49)
[2023-10-17] MEDS: LEVALBUTEROL NEB 1.25 MG/3 ML 0.63 MG INHALATION ×3 (02:28→14:09)
[2023-10-17] MEDS: IPRATROPIUM BR 0.02% INH SOLN 0.5 MG/2.5 ML VIAL INHALATION ×3 (02:28→14:09)
[2023-10-17] MEDS: LORazepam (*CRX) 1 MG TABLET PO ×2 (05:29→11:49)
[2023-10-17 05:45] LABS: Basophils Absolute Auto 0.1 K/mm3 (0.0-0.1); Basophils Percent Auto 0.3 % (0.2-1.2); Eosinophils Absolute Auto 0.1 K/mm3 (0-0.3); Eosinophils Percent Auto 0.7 % (0-4.4); Hematocrit 41.9 % (37.0-47.0); Hemoglobin 13.4 g/dL (12.0-15.0); Immature Granulocyte Absolute 0.07 K/mm3 (0.00-0.031); Immature Granulocyte Percent A 0.5 % (0-0.5); Lymphocytes Absolute Auto 1.91 K/mm3 (0.9-3.2); Lymphocytes Percent Auto 13.2 % (18.3-44.2); Mean Corpuscular Hemoglobin 30.9 pg (26-34); Mean Corpuscular Volume 96.5 fl (80-100); Mean Platelet Volume 10.1 fl (7.4-10.4); Monocytes Absolute Auto 0.9 K/mm3 (0.1-0.6); Monocytes Percent Auto 6.5 % (2.6-8.5); Neutrophils Absolute Auto 11.4 K/mm3 (1.3-6.7); Neutrophils Percent Auto 78.8 % (45.5-73.1); Platelet Count Result 238 k/mm3 (150-375); Red Blood Count 4.34 M/mm3 (4.2-5.4); Red Cell Distribution Width 12.9 % (11.5-14.5); White Blood Count 14.5 K/mm3 (4.5-10.0)
[2023-10-17 06:02] LABS: Blood Urea Nitrogen 25 mg/dL (7-17); Calcium 8.6 mg/dL (8.4-10.2); Carbon Dioxide > 40 mmol/L (22-30); Chloride 99 mmol/L (98-107); Estimated CRCL calculation 51 ml/min; Estimated Glomerular Filt Rate 44; Glucose 108 mg/dL (65-110); Magnesium 1.9 mg/dL (1.6-2.3); Sodium 141 mmol/L (137-145)
[2023-10-17] MEDS: FLUTICASONE/SALMETEROL 115-21 MCG INHALER 1 PUFF 2 PUFF INHALATION (08:29)
[2023-10-17] MEDS: predniSONE 20 MG TABLET 40 MG PO (09:23)
[2023-10-17] MEDS: amLODIPine BESYLATE 5 MG TABLET PO (09:24)
[2023-10-17] MEDS: SOTALOL HCL 80 MG TABLET PO (09:25)
[2023-10-17] MEDS: APIXABAN 5 MG TABLET PO (09:26)
[2023-10-17] MEDS: DULoxetine HCL 30 MG CAPSULE.DR PO (09:26)
[2023-10-17] MEDS: ASPIRIN 81 MG ENTERIC TABLET PO (09:26)
[2023-10-17] MEDS: AZITHROMYCIN 500 MG/NS 250 ML 500 MG/250 ML BAG 250 MG IVPB (09:27)
[2023-10-17] MEDS: CHOLECALCIFEROL 1,000 UNITS TABLET 1000 UNITS PO (09:28)
[2023-10-17] MEDS: POTASSIUM CHLORIDE 20 MEQ PACKET (FOR LIQUID) 40 MEQ PO (09:36)
--- NOTE | 2023-10-17 12:26 | PM.DS ---
DS: Admitting Diagnosis Discharge Date 10/17/23 Admitting Diagnosis Acute hypoxic respiratory failure AFib with RVR DS: Discharge Diagnosis Discharge Diagnosis (1) Hypoxia: Code(s): R09.02 - Hypoxemia Status: Acute (2) Atrial fibrillation with rapid ventricular response: Code(s): I48.91 - Unspecified atrial fibrillation Status: Acute (3) Pneumonia: Code(s): J18.9 - Pneumonia, unspecified organism Status: Acute (4) Elevated troponin: Code(s): R79.89 - Other specified abnormal findings of blood chemistry Status: Acute DS: Summary Hospital Course Reason for hospitalization: Acute hypoxic respiratory failure Hospital Course: 78 y/o F presents here with SOB and hypoxia with PMH of asthma/COPD, depression/anxiety, HLD, HTN, psoriasis, rhabdomyolysis (2022), and tobacco use presented with worsening shortness of breath, hypoxia.? Patient was discharged 1 day prior to this admission. ?CTA of the chest showed no PE, mild pulmonary edema and small bilateral pleural effusions, and mild bronchial wall thickening in the bilateral lower lobes which could represent pulmonary edema, bronchitis, or reactive airway disease/asthma. Was treated with O2 support, bronchodilators, 5 day course of azithromycin and ceftriaxone. Symptoms improved, was weaned of O2 support. Also had elevated troponin for which Cardiology was consulted. Was recommended for outpatient follow-up. Also has history of AFib with RVR. Discharge home on sotalol and Eliquis. Discharge home in stable condition. Status at Discharge Functional status at discharge: independent ambulation Overall status at discharge: patient is back to baseline Time Spent with Patient Time attestation: Total time spent providing and/or coordinating discharge services: Time spent: Greater than 30 minutes Exam Const: General: comfortable and no acute distress; No confusion Orientation/consciousness: No confusion Other: , female, obese body habitus, disheveled HENMT: Face/Nose/Sinus: Normal nares present Mouth: Yes moist mucous membranes Eyes: General: appearance normal, both eyes and all related structures Sclera: sclerae normal Pupils: Equal, round and reactive pupils present EOM: EOMs intact bilaterally Resp: Other: Mild WOB without accessory muscle use or pursed lip breathing, coarse at bases best heard with expiration, no wheeze. Cardio: Rate: regular rate Rhythm: regular rhythm GI: Auscultation: normal bowel sounds Other: Rounded, nontender Skin: General skin exam: normal color and rashes Rashes: rashes noted Other: RUE -erythematous patch with silver/white scaling, primarily to the forearm. LUE - erythematous patch with silver white scaling, left hand/wrist Neuro: General: No confusion Cranial nerves: Yes Equal, round and reactive pupils present Speech: normal speech and No Abnormal speech present Sensory Exam: normal sensation Other: Moving all extremities, A&O x4 Extrem: Other: 3-4+ edema to BLE Psych: Mental Status: mental status grossly normal Affect: normal affect Other: Fair to poor insight and judgment DS: Data Data Completed and Pending Labs on day of discharge: Labs from last 24 hours 10/17/23 05:38 WBC 14.5 H RBC 4.34 Hgb 13.4 Hct 41.9 MCV 96.5 MCH 30.9 MCHC 32.0 RDW 12.9 Plt Count 238 MPV 10.1 Immature Gran % (Auto) 0.5 Neut % (Auto) 78.8 H Lymph % (Auto) 13.2 L [place] % (Auto) 6.5 Eos % (Auto) 0.7 Baso % (Auto) 0.3 Lymph # (Auto) 1.91 [place] # (Auto) 0.9 H Eos # (Auto) 0.1 Baso # (Auto) 0.1 Abs Immat Gran (auto) 0.07 H Absolute Neuts (auto) 11.4 H Absolute Nucleated RBC 0.000 Nucleated RBC % 0.0 Sodium 141 Potassium 3.0 L Chloride 99 Carbon Dioxide > 40 H Anion Gap BUN 25 H Creatinine 1.20 H Estim Creat Clear Calc 51 Estimated GFR 44 L Glucose 108 Calcium 8.6 Magnesium 1.9 Preliminar
--- NOTE | 2023-10-17 13:20 | PCOTNOTE ---
Attempted to see pt. for OT evaluation. Per nursing, pt. is discharging at this time and no OT evaluation is needed. Will follow.
--- NOTE | 2023-10-19 09:06 | PC.NURSE ---
Patient called regarding questions to medications. All questions answered. Patient concerned regarding difficulty breathing. Patient advised to seek medical attention if difficulty breathing.
== END 2023-10-17 16:17 | disposition home or self-care (01) | DRG 191 ==
LOC: ANHED 17:48 → ANHIMU 18:00 → ANH3MEDSUR 10-15 13:06
PROVIDERS: Emergency Medicine; Student in an Organized Health Care Education/Training Program; Admitting Provider Internal Medicine; Emergency Provider Emergency Medicine; PCP Nurse Practitioner Family; Visit Provider Internal Medicine
DX: J44.1 Chronic obstructive pulmonary disease with (acute) exacerbation (principal); N17.9 Acute kidney failure, unspecified; Z68.42 Body mass index [BMI] 45.0-49.9, adult; I48.91 Unspecified atrial fibrillation; I10 Essential (primary) hypertension; R79.89 Other specified abnormal findings of blood chemistry; F41.8 Other specified anxiety disorders; E78.5 Hyperlipidemia, unspecified; L40.9 Psoriasis, unspecified; F17.210 Nicotine dependence, cigarettes, uncomplicated; E66.01 Morbid (severe) obesity due to excess calories; Z79.82 Long term (current) use of aspirin
CPT/HCPCS: 36415; 36569; 71046; 71275; 80048; 80053; 83605; 83690; 83735; 83880; 84484; 85025; 85610; 85730; 87040; 93005; 94640; 96365; 96366; 96367; 96375; 96376; 97161; 99285; A9270; C1751; G0378; J0456; J0696; J1940; J7512; Q9967

== ENCOUNTER 2024-01-27 06:13 | Emergency (ER) | payer MEDICARE, SELFPAY ==
--- NOTE | ~2024-01-27 | XR_ITS ---
XR knee LT min 4V Ordering provider: Rafy Huitron MD History: . Fall, swelling PAIN BRUISING TO ANTERIOR LT KNEE . Comparison: May 15, 2018 FINDINGS: BONES: No acute fracture or dislocation. JOINT SPACES: Slight narrowing of the medial and lateral compartment. SOFT TISSUES: Soft tissue swelling is seen in the prepatellar and in the area anterior to the patella r tendon. IMPRESSION: No acute osseous abnormality left knee. Hematoma seen anterior to the patella and patellar tendon. Mild osteoarthritic changes. Reviewed, dictated and finalized at location A.
--- NOTE | ~2024-01-27 | XR_ITS ---
XR chest 1V portable Ordering provider: Vamsi Rosa MD History: 79 years Female with . weakness, COUGH . Comparison: October 13, 2023 FINDINGS: MEDIASTINUM: The cardiac silhouette is not enlarged. LUNGS: No infiltrates, effusions or pneumothorax. Slightly prominent markings bilaterally. Bronchitis is not excluded. OTHER: No free air under the diaphragm. Degenerative changes of the spine. IMPRESSION: No definite acute cardiopulmonary pathology. Reviewed, dictated and finalized at location A.
--- NOTE | ~2024-01-27 | XR_ITS ---
SINGLE AP VIEW PELVIS Ordering provider: Vamsi Rosa MD History: . Fall PAIN TO LT SIDED PELVIS . Comparison: May 15, 2018 FINDINGS: BONES: No acute fracture or dislocation. HIP JOINT SPACES: Bilateral moderate to severe osteoarthritic changes of the hips. SACROILIAC JOINT SPACES/LUMBAR SPINE: The sacroiliac joint spaces are normal. Mild degenerative ruiz es of the visualized lower lumbar spine. PUBIC SYMPHYSIS: Normal. SOFT TISSUES: Normal. IMPRESSION: No acute osseous abnormality pelvis. Reviewed, dictated and finalized at location A.
[2024-01-27 06:19] VITALS: BP 159/91; PULSE 77; RESP 17; TEMP 36.5; O2SAT 100
--- NOTE | 2024-01-27 07:12 | ECG_ITS ---
Test Date: 2024-01-27 07:22:55 Measurements Intervals [place] Rate: 59 P: 81 NV: 200 QRS: 13 QRSD: 94 T: 74 QT: 438 QTc: 434 Interpretive Statements SINUS BRADYCARDIA WITH OCCASIONAL SUPRAVENTRICULAR PREMATURE COMPLEXES BASELINE ARTIFACT- I, II, III, AVR, AVL, AVF, V1-V6 BORDERLINE ECG No previous ECG available for comparison Electronically Signed On 01-27-2024 07:29:02 CDT by Watson Knapp D.O.
--- NOTE | 2024-01-27 07:21 | ED.GENADULT ---
HPI - General Adult General Chief complaint: Fall Stated complaint: left knee pain s/p fall Time Seen by Provider: 01/27/24 06:54 History of Present Illness HPI narrative: this is a 79-year-old female presenting after a ground level fall. Patient was trying to step over several boxes at her apartment. She tripped and landed on her left knee. She was unable to get up from the floor which is normal for her after a fall. She called paramedics to help with the ground she is able bear time. She says significant bruising and swelling to [facility] for evaluation. Patient denies fevers chills chest pain difficulty breathing or abdominal pain. she notes increased urinary frequency without urgency or dysuria. No weakness or numbness to the left leg. Patient is on Eliquis for AFib. She did not strike her head. Related Data Home Medications Medication Instructions Recorded Confirmed amlodipine 5 mg tablet 5 mg PO DAILY 08/24/22 10/13/23 budesonide-formoterol HFA 160 1 puff inhalation BID 08/24/22 10/13/23 mcg-4.5 mcg/actuation aerosol inhaler (Symbicort) duloxetine 30 mg capsule,delayed 30 mg PO DAILY 08/24/22 10/13/23 release lovastatin 10 mg tablet 10 mg PO QHS 08/24/22 10/13/23 aspirin 81 mg capsule 81 mg PO DAILY 08/25/22 10/13/23 cholecalciferol (vitamin D3) 25 25 mcg PO DAILY 08/25/22 10/13/23 mcg (1,000 unit) tablet (Vitamin D3) lorazepam 1 mg tablet 1 mg PO Q6H PRN Anxiety 10/07/23 10/13/23 Allergies Allergy/AdvReac Type Severity Reaction Status Date / Time No Known Allergies Allergy Mild Verified 01/27/24 07:26 [facility] Past Medical History Medical History SAVAGE (acute kidney injury) (08/24/22) [employer] 1.7, 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 Code status: Full code. Smoking packs per day: 1 Smoking cigarettes per day: 20.0 Years smoked: 60 Smoking pack-years: 60.00 Smoking status: Current every day smoker Alcohol intake: never Substance use: never Substance use type: does not use Do You Feel Safe in your Home?: Yes Lack of Transportation: No Lack of Food: Never True Current Housing: I Do Not Have Housing Concerned About Future Housing: No Difficulty Paying Gas/Electric Bills: No Difficulty Paying for Meds: No Currently Unemployed: No Education: High School Diploma/GED Difficulty w/ Childcare or Family Care: No Spiritual care concerns: No Exam Narrative: APPEARANCE: No apparent distress. Head: atraumatic. EYES: EOMI, NOSE: Atraumatic NECK: Trachea midline RESPIRATORY: No increased rate of breathing clear to auscultation CARDIOVASCULAR: RRR, no peripheral edema ABDOMINAL: Non-distended soft nontender MUSCULOSKELETAl: Bruising and swelling to the left knee pain with active passive range of motion foot is neurovascularly intact NEURO: Alert. Moving 4/4 extremities SKIN:: bruising and abrasion to the left knee PSYCHIATRIC: Normal affect Course Vital Signs Vital signs: Vital Signs Temperature 97.7 F 01/27/24 06:19 Pulse Rate 77 01/27/24 06:19 Respiratory Rate 17 01/27/24 06:19 Blood Pressure 159/91 H 01/27/24 06:19 Pulse Oximetry 100 01/27/24 06:19 Oxygen Delivery Room Air 01/27/24 06:19 Temperature 97.7 F 01/27/24 06:19 Puls
[2024-01-27] MEDS: ACETAMINOPHEN 500 MG TABLET 1000 MG PO (07:31)
[2024-01-27 07:40] LABS: Appearance Urine Clear (Clear); Bilirubin Urine Negative (Negative); Blood Urine Negative (Negative); Color Urine Yellow (Yellow); Glucose Urine UA Negative (Negative); Ketones Urine Negative (Negative); Leukocyte Esterase Ur Negative LEU/UL (Negative); Nitrate Urine Negative (Negative); Protein Urine Negative (Negative); Specific Grav Ur 1.012 (1.001-1.035)
[2024-01-27 07:42] LABS: Basophils Absolute Auto 0.1 K/mm3 (0.0-0.1); Basophils Percent Auto 0.7 % (0.2-1.2); Eosinophils Absolute Auto 0.6 K/mm3 (0-0.3); Eosinophils Percent Auto 4.3 % (0-4.4); Hematocrit 47.2 % (37.0-47.0); Hemoglobin 14.8 g/dL (12.0-15.0); Immature Granulocyte Absolute 0.18 K/mm3 (0.00-0.031); Immature Granulocyte Percent A 1.3 % (0-0.5); Lymphocytes Absolute Auto 1.29 K/mm3 (0.9-3.2); Lymphocytes Percent Auto 9.4 % (18.3-44.2); Mean Corpuscular HGB Conc 31.4 g/dl (32-36); Mean Corpuscular Hemoglobin 30.3 pg (26-34); Mean Corpuscular Volume 96.7 fl (80-100); Mean Platelet Volume 10.3 fl (7.4-10.4); Monocytes Absolute Auto 0.8 K/mm3 (0.1-0.6); Monocytes Percent Auto 6.1 % (2.6-8.5); Neutrophils Absolute Auto 10.8 K/mm3 (1.3-6.7); Neutrophils Percent Auto 78.2 % (45.5-73.1); Platelet Count Result 246 k/mm3 (150-375); Red Blood Count 4.88 M/mm3 (4.2-5.4); Red Cell Distribution Width 12.8 % (11.5-14.5); White Blood Count 13.8 K/mm3 (4.5-10.0)
[2024-01-27 07:48] LABS: Alanine Aminotransferase 22 U/L (6-35); Alkaline Phosphatase 72 U/L (38-126); Anion Gap 4 mmol/L (4-12); Aspartate Amino Transferase 21 U/L (14-36); Bilirubin,Total 0.8 mg/dL (0.2-1.3); Blood Urea Nitrogen 18 mg/dL (7-17); Carbon Dioxide 30 mmol/L (22-30); Chloride 107 mmol/L (98-107); Estimated CRCL calculation 62 ml/min; Estimated Glomerular Filt Rate > 60; Glucose 114 mg/dL (65-110); Potassium 3.9 mmol/L (3.4-5.0); Sodium 141 mmol/L (137-145)
[2024-01-27 08:04] LABS: Add Urine Microscopic? NO
[2024-01-27 08:05] VITALS: O2SAT 96
[2024-01-27 08:14] LABS: Influenza A QL RT-PCR Negative (Negative); Influenza B QL RT-PCR Negative (Negative); RSV RNA, RT-PCR Negative (Negative); SARS-CoV-2 RNA PCR Negative (Negative)
[2024-01-27 08:16] VITALS: BP 166/89; PULSE 55; RESP 18; O2SAT 100
[2024-01-27 08:19] VITALS: O2SAT 100
--- NOTE | 2024-01-27 09:23 | PC.NURSE ---
Patient able to ambulate independently.
== END 2024-01-27 10:03 | disposition home or self-care (01) ==
PROVIDERS: Emergency Medicine; Emergency Provider Emergency Medicine; PCP Nurse Practitioner Family
DX: S80.212A Abrasion, left knee, initial encounter (principal); I48.91 Unspecified atrial fibrillation; J44.9 Chronic obstructive pulmonary disease, unspecified; E78.5 Hyperlipidemia, unspecified; I10 Essential (primary) hypertension; F17.210 Nicotine dependence, cigarettes, uncomplicated; Z20.822 Contact with and (suspected) exposure to COVID-19; Z79.01 Long term (current) use of anticoagulants; W01.0XXA Fall on same level from slipping, tripping and stumbling without subsequent striking against object, initial encounter; Y92.039 Unspecified place in apartment as the place of occurrence of the external cause
CPT/HCPCS: 36415; 71045; 72170; 73564; 80053; 81003; 83605; 85025; 87637; 93005; 99284; A9270

== ENCOUNTER 2024-02-07 16:32 | Emergency (ER) | payer MEDICARE, SELFPAY ==
[2024-02-07] VITALS (13 sets, daily range): BP systolic 120–169; BP diastolic 61–125; PULSE 57–77; RESP 14–28; TEMP 36.7; O2SAT 96–99
--- NOTE | ~2024-02-07 | CT_ITS ---
EXAMINATION: CT LE LT wo con DATE: 02/07/2024 18:42 INDICATION: Left lower limb swelling. Fall 12 days ago. TECHNIQUE: Computed tomography (CT) of the left knee was performed without intravenous contrast. Auto mated exposure control and iterative reconstruction technique were employed. The dose-length product was 562.33 mGy-cm. COMPARISON: Left knee radiographs 01/27/2024 FINDINGS: Bone alignment is normal. No fracture. There is moderate tricompartmental osteoarthritis. N o knee joint effusion. There is a subcutaneous hematoma anterior to the patella and proximal tibia. IMPRESSION: 1. Moderate left knee osteoarthritis. 2. Subcutaneous hematoma anterior to the patella and proximal tibia. Reviewed, dictated and finalized at location E.
--- NOTE | 2024-02-07 18:10 | ED.GENADULT ---
HPI - General Adult General Chief complaint: Skin/Abscess/Foreign Body <Velia Carreor, PROFESSOR OF SPANISH - Last Filed: 02/07/24 18:13> Stated complaint: left knee pain, possible infection <Velia Carrero PROFESSOR [employer] SPANISH - Last Filed: 02/07/24 18:13> Time Seen by Provider: 02/07/24 18:10 <Velia Carrero PROFESS[employer] SPANISH - Last Filed: 02/07/24 18:13> Focused HPI: Merly Stratton is a 79 y/o female who presents with reports of having a fall on to her left knee on January 26, she came here and had an xr that was negative. She states that once she got home 3 days later she had more bruising, and now she's having increased redness swelling and today noticed a foul odor from her knee and was concerned for infection. Moderate erythema/ swelling to left knee GENERAL: no acute distress. HEAD: Normocephalic, atraumatic. CHEST: Clear to auscultation. ?No respiratory distress. HEART: Regular rate and rhythm.? NEURO: ?Alert and oriented x3. Patient screened in triage and initial orders placed.? ?Additional care and disposition to be based upon?diagnostic testing and treatment. <Velia Carrero, PROFESSOR OF SPANISH - Last Filed: 02/07/24 18:13> History of Present Illness HPI narrative: 79-year-old female presents emergency department for evaluation for a wound on her knee. Patient had a fall January 26 and has had a Band-Aid on her wound since that time. <Sreedhar Olivier MD - Last Filed: 02/08/24 04:42> Related Data Home medications: Home Medications Medication Instructions Recorded Confirmed amlodipine 5 mg tablet 5 mg PO DAILY 08/24/22 10/13/23 budesonide-formoterol HFA 160 1 puff inhalation BID 08/24/22 10/13/23 mcg-4.5 mcg/actuation aerosol inhaler (Symbicort) duloxetine 30 mg capsule,delayed 30 mg PO DAILY 08/24/22 10/13/23 release lovastatin 10 mg tablet 10 mg PO QHS 08/24/22 10/13/23 aspirin 81 mg capsule 81 mg PO DAILY 08/25/22 10/13/23 cholecalciferol (vitamin D3) 25 25 mcg PO DAILY 08/25/22 10/13/23 mcg (1,000 unit) tablet (Vitamin D3) lorazepam 1 mg tablet 1 mg PO Q6H PRN Anxiety 10/07/23 10/13/23 <Velia Carrero, PROFESSOR [employer] SPANISH - Last Filed: 02/07/24 18:13> Allergies/adverse reactions: Allergies Allergy/AdvReac Type Severity Reaction Status Date / Time No Known Allergies Allergy Mild Verified 01/27/24 07:26 <Velia Baltazar November, PROFESSOR [employer] SPANISH - Last Filed: 02/07/24 18:13> Review of Systems Review of Systems: All systems reviewed & are unremarkable except as noted in HPI and below <Sreedhar Olivier MD - Last Filed: 02/08/24 04:42> [facility] Past Medical History Medical History: Medical History SAVAGE (acute kidney injury) (08/24/22) [employer] 1.7, 0.9 at d/c Asthma Atrial fibrillation with rapid ventricular response COPD (chronic obstructive pulmonary disease) Depression with anxiety Hyperlipidemia Hypertension Psoriasis Rhabdomyolysis (07/2022) Tobacco abuse <Velia Baltazar November, PROFESSOR [employer] SPANISH - Last Filed: 02/07/24 18:13> Family History Family History: Family History Sibling Diabetes mellitus Family history of liver disease Other Family history of arthritis Family history of congenital heart disease Family history of malignant neoplasm Hypertension <Velia Baltazar November, PROFESSOR [employer] SPANISH - Last Filed: 02/07/24 18:13> Social History Social History: Social History Social History: Surrogate medical decision maker: Saqib Stratton, sibling. Code status: Full code. Smoking packs per day: 1 Smoking cigarettes per day: 20.0 Years smoked: 60 Smoking pack-years: 60.00 Smoking status: Current every day smoker Alcohol intake: never Substance use: never Substance use type: does not use Do You Feel Safe in your Home?: Yes Lack of Transportation: No Lack of Food: Never True Current Housing: I Do Not Have Housing Concerned About Future Housing: No Difficulty Paying Gas/Electric [place]
--- NOTE | 2024-02-07 21:18 | PC.NURSE ---
blood cultures x 2 drawn. 1st set left wrist with kurin label in bag. 2nd set rt wrist kurin label in bag sent to lab at this time.
[2024-02-07 21:27] LABS: Basophils Absolute Auto 0.1 K/mm3 (0.0-0.1); Basophils Percent Auto 0.8 % (0.2-1.2); Eosinophils Absolute Auto 0.7 K/mm3 (0-0.3); Eosinophils Percent Auto 5.5 % (0-4.4); Hematocrit 44.1 % (37.0-47.0); Immature Granulocyte Absolute 0.04 K/mm3 (0.00-0.031); Immature Granulocyte Percent A 0.3 % (0-0.5); Lymphocytes Absolute Auto 2.11 K/mm3 (0.9-3.2); Lymphocytes Percent Auto 17.2 % (18.3-44.2); Mean Corpuscular HGB Conc 31.7 g/dl (32-36); Mean Corpuscular Volume 97.6 fl (80-100); Monocytes Absolute Auto 0.9 K/mm3 (0.1-0.6); Monocytes Percent Auto 7.5 % (2.6-8.5); Neutrophils Absolute Auto 8.4 K/mm3 (1.3-6.7); Neutrophils Percent Auto 68.7 % (45.5-73.1); Platelet Count Result 413 k/mm3 (150-375); Red Blood Count 4.52 M/mm3 (4.2-5.4); Red Cell Distribution Width 13.5 % (11.5-14.5); White Blood Count 12.3 K/mm3 (4.5-10.0)
[2024-02-07 21:43] LABS: Alanine Aminotransferase 33 U/L (6-35); Albumin Level 4.4 g/dL (3.5-5.1); Alkaline Phosphatase 91 U/L (38-126); Anion Gap 11 mmol/L (4-12); Aspartate Amino Transferase 34 U/L (14-36); Blood Urea Nitrogen 21 mg/dL (7-17); Calcium 9.4 mg/dL (8.4-10.2); Carbon Dioxide 29 mmol/L (22-30); Chloride 101 mmol/L (98-107); Estimated CRCL calculation 61 ml/min; Estimated Glomerular Filt Rate > 60; Glucose 97 mg/dL (65-110); Potassium 4.2 mmol/L (3.4-5.0); Sodium 141 mmol/L (137-145)
== END 2024-02-07 22:10 | disposition home or self-care (01) ==
LOC: ANHED 21:46
PROVIDERS: Nurse Practitioner Family; Emergency Provider Emergency Medicine; PCP Nurse Practitioner Family
DX: L03.116 Cellulitis of left lower limb (principal); I48.91 Unspecified atrial fibrillation; I10 Essential (primary) hypertension; J44.9 Chronic obstructive pulmonary disease, unspecified; E78.5 Hyperlipidemia, unspecified; L40.9 Psoriasis, unspecified; F41.8 Other specified anxiety disorders; F17.210 Nicotine dependence, cigarettes, uncomplicated; Z79.82 Long term (current) use of aspirin; Z79.899 Other long term (current) drug therapy; M17.12 Unilateral primary osteoarthritis, left knee
CPT/HCPCS: 36415; 73700; 80053; 85025; 96365; 99284; J0696

== ENCOUNTER 2024-02-19 18:08 | Inpatient (IN) | payer MEDICARE, MEDICAID, SELFPAY ==
--- NOTE | ~2024-02-19 | US_ITS ---
EXAMINATION: US venous doppler [facility] DATE: 02/19/2024 23:14 INDICATION: r/o DVT; LLE swelling elev dimer . TECHNIQUE: Grayscale images without and with compression and Doppler images of the left lower extremi ty veins were obtained. COMPARISON: None FINDINGS: The left common femoral vein, profunda (deep) femoral vein, femoral vein, popliteal vein, posterior tibial veins, gastrocnemius vein, and greater saphenous vein are patent. Left peroneal veins not visu alized. IMPRESSION: Left peroneal veins not well visualized. Otherwise patent left lower extremity veins. No evidence of deep venous thrombosis in the visualized veins. Reviewed, dictated and finalized at location K.
--- NOTE | 2024-02-19 18:12 | ED.EXTPRO ---
HPI - Extremity Problem General Chief complaint: Extremity Problem,Nontraumatic <Tanika Garcia PA-C - Last Filed: 02/21/24 01:41> Stated complaint: left knee wound <Tanika Garcia PA-C - Last Filed: 02/21/24 01:41> Time Seen by Provider: 02/19/24 18:12 <Tnaika Garcia PA-C - Last Filed: 02/21/24 01:41> Focused HPI: This is a 79 year old female that presents to the ER for left knee pain, redness and swelling. Ongoing over the last several weeks. Has finished a course of Cephalexin for cellulitis with worsening of symptoms. Reports drainage from the area. Denies fevers or decreased ROM. GENERAL: Well-appearing, well-nourished, and in no acute distress. HEAD: Normocephalic, atraumatic. CHEST: Clear to auscultation. ?No respiratory distress. HEART: Regular rate and rhythm.? NEURO: ?Alert and oriented x3. Patient screened in triage and initial orders placed.? ?Additional care and disposition to be based upon?diagnostic testing and treatment. <Tanika Garcia PA-C - Last Filed: 02/21/24 01:41> Source: patient and EMS <Sirena Pizarro MD - Last Filed: 02/20/24 17:32> Mode of arrival: EMS <Sirena Pizarro MD - Last Filed: 02/20/24 17:32> Limitations: no limitations <Sirena Pizarro MD - Last Filed: 02/20/24 17:32> History of Present Illness HPI Narrative: Agreed with the above the following additions/correction: Patient states she took 2 Tylenol for pain. She denies having any pain at present. She denies having any fevers. She states she took her entire course of antibiotics and finished it. History of psoriasis, not on medications. She has a history of rectal arthritis for which orthopedic surgeon Dr. Martin used to provide injections, though last performed several years ago. <Sirena Pizarro MD - Last Filed: 02/20/24 17:32> Related Data Home medications: Home Medications Medication Instructions Recorded Confirmed amlodipine 5 mg tablet 5 mg PO DAILY 08/24/22 02/20/24 budesonide-formoterol HFA 160 1 puff inhalation BID 08/24/22 02/20/24 mcg-4.5 mcg/actuation aerosol inhaler (Symbicort) duloxetine 30 mg capsule,delayed 30 mg PO DAILY 08/24/22 02/20/24 release lovastatin 10 mg tablet 10 mg PO DAILY 08/24/22 02/20/24 aspirin 81 mg capsule 81 mg PO DAILY 08/25/22 02/20/24 cholecalciferol (vitamin D3) 25 25 mcg PO DAILY 08/25/22 02/20/24 mcg (1,000 unit) tablet (Vitamin D3) lorazepam 1 mg tablet 1 mg PO Q6H PRN Anxiety 10/07/23 02/20/24 albuterol sulfate 90 mcg/actuation 2 puff inhalation Q4H PRN 02/20/24 02/20/24 aerosol inhaler Shortness Of Breath atenolol 50 mg tablet 50 mg PO DAILY 02/20/24 02/20/24 <Tanika Garcia PA-C - Last Filed: 02/21/24 01:41> Allergies/Adverse reactions: Allergies Allergy/AdvReac Type Severity Reaction Status Date / Time No Known Allergies Allergy Mild Verified 02/19/24 22:08 <Tanika Garcia PA-C - Last Filed: 02/21/24 01:41> [facility] Past Medical History Medical History: Medical History SAVAGE (acute kidney injury) (08/24/22) 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, 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 Arthritis Asthma Atrial fibrillation with rapid ventricular response COPD (chronic obstructive pulmonary disease) Depression with anxiety History of cardioversion KATE cardioversion September 2023 Hyperlipidemia Hypertension Psoriasis Rhabdomyolysis (07/2022) Tobacco abuse <MELVIN Wall Last Filed: 02/21/24 01:41> Surgical History Surgical History: Surgical History History of chest tube placement <Tanika Garcia PA-C - Last Filed: 02/21/24 01:41> Family History Family History: Family History Sibling Diabetes mellitus Family history of liver disease Other Family history of arthritis Family history of congenital heart disease Family history o
[2024-02-19 18:13] VITALS: BP 123/67; PULSE 66; RESP 18; TEMP 36.6; O2SAT 98
[2024-02-19 21:43] LABS: Basophils Absolute Auto 0.1 K/mm3 (0.0-0.1); Basophils Percent Auto 0.8 % (0.2-1.2); Eosinophils Absolute Auto 0.5 K/mm3 (0-0.3); Eosinophils Percent Auto 5.7 % (0-4.4); Hemoglobin 9.9 g/dL (12.0-15.0); Immature Granulocyte Absolute 0.02 K/mm3 (0.00-0.031); Immature Granulocyte Percent A 0.2 % (0-0.5); Lymphocytes Percent Auto 18.3 % (18.3-44.2); Mean Corpuscular HGB Conc 30.9 g/dl (32-36); Mean Corpuscular Hemoglobin 31.5 pg (26-34); Mean Corpuscular Volume 101.9 fl (80-100); Monocytes Absolute Auto 0.7 K/mm3 (0.1-0.6); Monocytes Percent Auto 7.6 % (2.6-8.5); Neutrophils Absolute Auto 5.9 K/mm3 (1.3-6.7); Neutrophils Percent Auto 67.4 % (45.5-73.1); Platelet Count Result 258 k/mm3 (150-375); Red Blood Count 3.14 M/mm3 (4.2-5.4); Red Cell Distribution Width 13.8 % (11.5-14.5); White Blood Count 8.7 K/mm3 (4.5-10.0)
[2024-02-19 21:57] LABS: Anion Gap 5 mmol/L (4-12); Blood Urea Nitrogen 21 mg/dL (7-17); CRP 0.9 mg/dL (<1.0); Calcium 8.9 mg/dL (8.4-10.2); Carbon Dioxide 30 mmol/L (22-30); Chloride 101 mmol/L (98-107); Creatine Kinase 31 U/L (30-135); Estimated CRCL calculation 60 ml/min; Estimated Glomerular Filt Rate > 60; Glucose 99 mg/dL (65-110); Potassium 3.9 mmol/L (3.4-5.0); Sodium 136 mmol/L (137-145)
[2024-02-19 22:03] LABS: NT Pro B Type Natriuretic Pept 505 pg/mL (19.9-100)
[2024-02-19 22:04] LABS: D Dimer 2.76 ug/mL (<0.48)
[2024-02-19 22:05] VITALS: PULSE 54; RESP 16; O2SAT 97
[2024-02-19 22:06] VITALS: PULSE 54
[2024-02-19] MEDS: APIXABAN 5 MG TABLET BY MOUTH (22:06)
[2024-02-19] MEDS: SOTALOL HCL 80 MG TABLET PO (22:06)
[2024-02-19] MEDS: LORazepam (*CRX) 1 MG TABLET PO (22:06)
[2024-02-19 22:15] LABS: Erythrocyte Sedimentation Rate 17 mm/hr (0-20)
[2024-02-19 22:44] LABS: Lactic Acid Reflex 0.8 mmol/L (0.7-2.0)
[2024-02-19] MEDS: VANCOMYCIN 1,500 MG/NS 500 ML 1,500 MG/500 ML BAG 250 MG IVPB (23:29)
[2024-02-19 23:55] VITALS: BP 138/91; PULSE 78; RESP 16; O2SAT 94
[2024-02-19] MEDS: TETANUS,DIPHTHERIA,AC PERTUSSIS ADULT (0.5 ML) BOOSTRIX IM (23:55)
[2024-02-20] VITALS (11 sets, daily range): BP systolic 113–139; BP diastolic 56–73; PULSE 54–72; RESP 16–18; TEMP 36.2–37; O2SAT 94–98; BMI 40.9
--- NOTE | 2024-02-20 00:28 | ADMGEN ---
This patient, Merly Stratton, was admitted to Medical Room 345-. Patient/family oriented to hospital policies and general routines including ID bracelet, bed and alarms, visiting hours, pain management, procedures, bathroom and other care routines, personal items, smoking policy, room service/diet, and visiting hours. Information on how to activate the Rapid Response Team has been discussed. Patient/Family are encouraged to report perceived risks to care and to ask questions if they do not understand what they are told or what they should do.
--- NOTE | 2024-02-20 00:37 | PC.NURSE ---
Addendum entered by Gavi Solano RN 02/20/24 00:38: Note was late entry and happened at 02/19/24 [id number]. Original Note: Pt's left knee wrapped with wet to dry gauze with cling wrap around it. Adonis crackers and warm blanket provided to pt.
--- NOTE | 2024-02-20 03:42 | PM.IMHP ---
H&P: HPI History of Present Illness Date/Time: 02/20/24 03:42 Chief Complaint: Leg swellings Narrative: 79-year-old female presented to the emergency room complaining of left knee pain and redness and swelling of the leg ongoing for the last 2 weeks patient finished oral therapy with minimal improvement patient has been readmitted because she failed oral antibiotic therapy and will be started on and IV antibiotics. 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 Code status: Full code. Smoking packs per day: 1 Smoking cigarettes per day: 20.0 Years smoked: 60 Smoking pack-years: 60.00 Smoking status: Current every day smoker Tobacco type: cigarettes Additional smoking assessment comments: states she smokes 1-2 packs per day Alcohol intake: never Substance use: never Substance use type: does not use Do You Feel Safe in your Home?: Yes Lack of Transportation: No Lack of Food: Never True Current Housing: I Have Housing Concerned About Future Housing: No Difficulty Paying Gas/Electric Bills: No Difficulty Paying for Meds: No Currently Unemployed: No Education: Decline to Answer Difficulty w/ Childcare or Family Care: No Spiritual care concerns: No Meds Home Medications and Allergies Home Medications Medication Instructions Recorded Confirmed Type amlodipine 5 mg tablet 5 mg PO DAILY 08/24/22 02/20/24 History budesonide-formoterol HFA 160 1 puff inhalation BID 08/24/22 02/20/24 History mcg-4.5 mcg/actuation aerosol inhaler (Symbicort) duloxetine 30 mg capsule,delayed 30 mg PO DAILY 08/24/22 02/20/24 History release lovastatin 10 mg tablet 10 mg PO DAILY 08/24/22 02/20/24 History aspirin 81 mg capsule 81 mg PO DAILY 08/25/22 02/20/24 History cholecalciferol (vitamin D3) 25 25 mcg PO DAILY 08/25/22 02/20/24 History mcg (1,000 unit) tablet (Vitamin D3) lorazepam 1 mg tablet 1 mg PO Q6H PRN Anxiety 10/07/23 02/20/24 History apixaban 5 mg tablet (Eliquis) 5 mg PO Q12HR #60 tabs 10/12/23 02/20/24 Rx sotalol 80 mg tablet 80 mg PO Q12HR #60 tabs 10/12/23 02/20/24 Rx Allergies Allergy/AdvReac Type Severity Reaction Status Date / Time No Known Allergies Allergy Mild Verified 02/19/24 22:08 Vital Signs Vital Signs - 24 hr 02/19/24 18:13 02/19/24 22:05 02/19/24 22:06 Temperature 36.6 C Pulse Rate 66 54 L 54 L Respiratory Rate 18 16 Blood Pressure 123/67 Pulse Oximetry 98 97 Oxygen Delivery Room Air 02/20/24 00:21 02/19/24 23:55 02/20/24 00:30 Temperature 37.0 C Pulse Rate 60 78 Respiratory Rate 18 16 Blood Pressure 133/73 138/91 H Pulse Oximetry 98 94 Oxygen Delivery Room Air Exam Narrative: GENERAL: Well appearing, no acute distress. HEAD: Normocephalic, atraumatic. NECK: Supple. No adenopathy, no masses. RESPIRATORY: respirations nonlabored. , no rales, wheezing. CARDIOVASCULAR: Regular rate and rhythm without murmurs, . Peripheral pulses 2+ and equal bilaterally. Erythema and redness bilaterally ABDOMINAL:
[2024-02-20] MEDS: LORazepam (*CRX) 1 MG TABLET PO ×4 (04:07→23:00)
[2024-02-20] MEDS: ALBUTEROL SULFATE (*SP) AEROSOL 1 PUFF 2 PUFF INHALATION ×3 (04:16→21:30)
[2024-02-20 07:05] LABS: Hematocrit 39.6 % (37.0-47.0); Hemoglobin 12.4 g/dL (12.0-15.0); Mean Corpuscular HGB Conc 31.3 g/dl (32-36); Mean Corpuscular Hemoglobin 31.5 pg (26-34); Mean Corpuscular Volume 100.5 fl (80-100); Mean Platelet Volume 10.2 fl (7.4-10.4); Platelet Count Result 266 k/mm3 (150-375); Red Blood Count 3.94 M/mm3 (4.2-5.4); Red Cell Distribution Width 13.7 % (11.5-14.5); White Blood Count 10.1 K/mm3 (4.5-10.0)
[2024-02-20 07:17] LABS: Alanine Aminotransferase 16 U/L (6-35); Albumin Level 3.6 g/dL (3.5-5.1); Alkaline Phosphatase 68 U/L (38-126); Anion Gap 7 mmol/L (4-12); Aspartate Amino Transferase 22 U/L (14-36); Bilirubin,Total 0.4 mg/dL (0.2-1.3); Blood Urea Nitrogen 18 mg/dL (7-17); Calcium 8.6 mg/dL (8.4-10.2); Carbon Dioxide 25 mmol/L (22-30); Chloride 105 mmol/L (98-107); Estimated CRCL calculation 61 ml/min; Estimated Glomerular Filt Rate > 60; Glucose 92 mg/dL (65-110); Potassium 3.7 mmol/L (3.4-5.0); Sodium 137 mmol/L (137-145)
[2024-02-20 07:18] LABS: Estimated CRCL calculation 61 ml/min; Estimated Glomerular Filt Rate > 60
[2024-02-20] MEDS: CHOLECALCIFEROL 1,000 UNITS TABLET 1000 UNITS PO (09:10)
[2024-02-20] MEDS: amLODIPine BESYLATE 5 MG TABLET PO (09:11)
[2024-02-20] MEDS: SOTALOL HCL 80 MG TABLET PO ×2 (09:11→20:34)
[2024-02-20] MEDS: DULoxetine HCL 30 MG CAPSULE.DR PO (09:12)
[2024-02-20] MEDS: LOVASTATIN 10 MG TABLET PO (09:12)
[2024-02-20] MEDS: FLUTICASONE/SALMETEROL 115-21 MCG INHALER 1 PUFF 2 PUFF INHALATION ×2 (09:31→21:30)
--- NOTE | 2024-02-20 11:10 | PM.CNGS ---
Assessment and Plan Assessment and plan (1) Hematoma of left knee region: Code(s): S80.02XA - Contusion of left knee, initial encounter Status: Acute Assessment and Plan: Patient had a ground-level fall three weeks ago that has resulted in a subcutaneous hematoma of the left anterior knee, which was seen on CT two weeks ago. There is now an open wound directly over the draining hematoma. I discussed the case with Dr. Lang. This is an indication for surgical management. We would recommend proceeding with evacuation of the left knee hematoma, which will be done in the OR with sedation. Description of the procedure, risks, benefits, expected postoperative wound care, and expected recovery were discussed with the patient in detail. She agrees to proceed. We have added her onto the surgery schedule for tomorrow. Will make her NPO after midnight. There is some mild erythema, but no significant surrounding cellulitis. Continue antibiotics for now. 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 (3) History of atrial fibrillation: Code(s): Z86.79 - Personal history of other diseases of the circulatory system Status: Acute Assessment and Plan: Regular rate and rhythm on exam. History of cardioversion in September. (4) Anemia, macrocytic: Code(s): D53.9 - Nutritional anemia, unspecified Status: Acute Assessment and Plan: Hgb dropped to 9.9 on admission but is up to 12.4 today. Remains stable. Will continue to monitor labs. Hold anticoagulation. (5) COPD (chronic obstructive pulmonary disease): Code(s): J44.9 - Chronic obstructive pulmonary disease, unspecified Status: Acute (6) Hypertension: Code(s): I10 - Essential (primary) hypertension Status: Acute (7) Tobacco abuse: Code(s): Z72.0 - Tobacco use Status: Acute Assessment and Plan: Encouraged cessation. Plan I have discussed the patient's case and plan of care with Dr. Lang. Thank you for allowing us to see the patient in consultation and we will continue to follow along with you. History of Present Illness Consult details Consult date: 02/20/24 Reason for consult: other (Left knee wound) Requesting physician: Ronal Whitaker APN-C Narrative: This is a 79-year-old smoker with a PMH of CODP, atrial fibrillation on Eliquis, psoriasis, hypertension, hyperlipidemia, and depression/anxiety, who we have been asked to see in surgical consultation for a left knee wound. She reports having a ground-level fall on January 26 at home when she tripped over a box. She reports landing all of her weight onto the front of her left knee. She could not get up off the floor and lives alone, therefore she called EMS. They brought her into the ED for evaluation. She had a pelvis, chest, and left knee x-ray, which showed no acute osseous abnormality, but does mention a hematoma anterior to the patella and patellar tendon. She was discharged home and reports initially noticing some swelling and bruising to the left knee. Then, on February 06 she had noticed a scab on her left knee and it fell off and she noticed a foul odor. She was concerned for infection. She has bad vision due to macular degeneration and is not able to see her knee well enough to comment on increased swelling, redness, or what the scab looked like. She reports noticing an odor and increased left knee pain. She was brought back to the ED for evaluation on 02/07/24 due to concerns of infection. Labs showed a stable hemoglobin of 14.0 and WBC count 12,300. CT scan of the left lower extremity showed a subcutaneous hematoma anterior to the patella and proximal tibia. She was prescribed cephalexin due to erythema on exam and concerns for infection, and she was discharged back home. She reports taking the cephalexin as prescribed. Since leaving the ED last time
[2024-02-20] MEDS: ASPIRIN 81 MG ENTERIC TABLET PO (12:10)
[2024-02-20] MEDS: ENOXAPARIN 40 MG/0.4 ML SYRINGE SUB-Q (12:10)
--- NOTE | 2024-02-20 15:18 | PM.IMPN ---
Progress Note: A&P Assessment and Plan (1) Cellulitis and abscess of foot: Code(s): L03.119 - Cellulitis of unspecified part of limb; L02.619 - Cutaneous abscess of unspecified foot Status: Acute Assessment and Plan: Presented with open wound to the right knee Notable hematoma noted Continue IV antibiotics, vanco and cefepime Wound care consult General surgery consulted Surgical planning for tomorrow (2) Anemia, macrocytic: Code(s): D53.9 - Nutritional anemia, unspecified Status: Acute Assessment and Plan: Current H/H 12.4/37.8 Currently stable Continue to trend labs No indications of supplemented noted (3) COPD (chronic obstructive pulmonary disease): Code(s): J44.9 - Chronic obstructive pulmonary disease, unspecified Status: Acute Assessment and Plan: Currently on room air Continue home inhalers No indication of exacerbation Trend respiratory status (4) Hypertension: Code(s): I10 - Essential (primary) hypertension Status: Acute Assessment and Plan: Current BP 113/65 Continue Home Atenolol and amlodipine Trend Blood pressure Adjust therapy as indicated (5) A-fib: Code(s): I48.91 - Unspecified atrial fibrillation Status: Acute Assessment and Plan: HR currently stable Hold Eliquis for now Continue home sotalol Trend labs and vital signs Time Spent With Patient Time: 52 minutes Time with patient: Greater than 35 minutes Subjective Date/time seen: 02/20/24 15:18 Interval history: 02/20/24 03:42 79-year-old female presented to the emergency room complaining of left knee pain and redness and swelling of the leg ongoing for the last 2 weeks patient finished oral therapy with minimal improvement patient has been readmitted because she failed oral antibiotic therapy and will be started on and IV antibiotics. Denies fever chills nausea vomiting diarrhea 02/20/24 Patient is currently symptom bed stating that she is waiting for her breathing treatment, and her inhaler. She denies any current nausea vomiting diarrhea constipation. She did state that she was having at heaviness in her chest however she states that is related to her breathing. Currently she is waiting for surgery to come see her. Review of Systems Review of Systems: All systems reviewed & are unremarkable except as noted in HPI and below Exam Narrative: General: well-nourished, well-appearing 79-year-old female, sitting up in bed, comfortable, NARD Neuro: awake, alert and oriented x4, speech clear, no focal neuro deficits noted HEENMT: normocephalic, atraumatic, EOMI, sclerae anicteric, moist oral mucosa Respiratory: Clear to auscultation bilaterally without crackles, rhonchi or wheezes, nonlabored breathing Cardio: regular rate, regular rhythm with S1-S2 Abdomen: nondistended, normoactive bowel sounds, soft, nontender to palpation Extremities: no edema, erythema, or tenderness to palpation, DP pulses 2+ bilaterally right knee with dressing dry and intact Skin: no rashes or lesions, warm and dry Psych: appropriate mood and affect, judgment and insight intact Objective Data Vital Signs Vital Signs: Vital Signs - 24 hr 02/19/24 18:13 02/19/24 22:05 02/19/24 22:06 Temperature 97.9 F Pulse Rate 66 54 L 54 L Respiratory Rate 18 16 Blood Pressure 123/67 Pulse Oximetry 98 97 Oxygen Delivery Room Air 02/20/24 00:21 02/19/24 23:55 02/20/24 00:30 Temperature 98.6 F Pulse Rate 60 78 Respiratory Rate 18 16 Blood Pressure 133/73 138/91 H Pulse Oximetry 98 94 Oxygen Delivery Room Air 02/20/24 04:01 02/20/24 04:17 02/20/24 04:21 Temperature 97.9 F Pulse Rate 55 L 56 L Respiratory Rate 18 Blood Pressure 139/56 L Pulse Oximetry 95 94 Oxygen Delivery Room Air 02/20/24 09:11 02/20/24 09:32 02/20/24 09:37 Temperature Pulse
[2024-02-20] MEDS: ACETAMINOPHEN 325 MG TABLET 650 MG PO (16:49)
[2024-02-20] MEDS: VANCOMYCIN 1,500 MG/NS 500 ML 1,500 MG/500 ML BAG 250 MG IVPB (17:07)
[2024-02-21] VITALS (14 sets, daily range): BP systolic 96–153; BP diastolic 43–76; PULSE 51–82; RESP 12–20; TEMP 36.2–36.7; O2SAT 91–100
[2024-02-21 05:48] LABS: Hematocrit 38.7 % (37.0-47.0); Hemoglobin 12.3 g/dL (12.0-15.0); Mean Corpuscular HGB Conc 31.8 g/dl (32-36); Mean Corpuscular Hemoglobin 31.5 pg (26-34); Mean Platelet Volume 9.9 fl (7.4-10.4); Platelet Count Result 266 k/mm3 (150-375); Red Blood Count 3.91 M/mm3 (4.2-5.4); Red Cell Distribution Width 13.6 % (11.5-14.5); White Blood Count 8.5 K/mm3 (4.5-10.0)
[2024-02-21 05:57] LABS: Alanine Aminotransferase 15 U/L (6-35); Albumin Level 3.4 g/dL (3.5-5.1); Alkaline Phosphatase 66 U/L (38-126); Anion Gap 6 mmol/L (4-12); Aspartate Amino Transferase 20 U/L (14-36); Bilirubin,Total 0.6 mg/dL (0.2-1.3); Blood Urea Nitrogen 14 mg/dL (7-17); Calcium 8.8 mg/dL (8.4-10.2); Carbon Dioxide 27 mmol/L (22-30); Chloride 104 mmol/L (98-107); Estimated CRCL calculation 68 ml/min; Estimated Glomerular Filt Rate > 60; Glucose 94 mg/dL (65-110); Potassium 3.6 mmol/L (3.4-5.0); Sodium 137 mmol/L (137-145)
[2024-02-21] MEDS: LORazepam (*CRX) 1 MG TABLET PO ×3 (06:10→22:48)
[2024-02-21] MEDS: amLODIPine BESYLATE 5 MG TABLET PO (08:40)
[2024-02-21] MEDS: SOTALOL HCL 80 MG TABLET PO ×2 (08:40→20:44)
[2024-02-21] MEDS: LOVASTATIN 10 MG TABLET PO (08:40)
[2024-02-21] MEDS: atenoloL 50 MG TABLET PO (08:40)
[2024-02-21] MEDS: DULoxetine HCL 30 MG CAPSULE.DR PO (08:40)
[2024-02-21] MEDS: CHOLECALCIFEROL 1,000 UNITS TABLET 1000 UNITS PO (08:40)
[2024-02-21] MEDS: FLUTICASONE/SALMETEROL 115-21 MCG INHALER 1 PUFF 2 PUFF INHALATION ×2 (09:20→20:03)
[2024-02-21] MEDS: ALBUTEROL SULFATE (*SP) AEROSOL 1 PUFF 2 PUFF INHALATION ×2 (09:22→20:02)
[2024-02-21] MEDS: ACETAMINOPHEN 325 MG TABLET 650 MG PO (11:39)
[2024-02-21] MEDS: LACTATED RINGERS 1,000 ML 30 ML IV CONT (11:50)
[2024-02-21] MEDS: VANCOMYCIN 1,500 MG/NS 500 ML 1,500 MG/500 ML BAG 250 MG IVPB (11:55)
--- NOTE | 2024-02-21 12:19 | P.PNIM_ITS ---
Progress Note: A&P Assessment and Plan (1) Left leg cellulitis: Code(s): L03.116 - Cellulitis of left lower limb Status: Acute Plan (1) Cellulitis and abscess of left leg Code(s): L03.119 - Cellulitis of unspecified part of limb; L02.619 - Cutaneous abscess of unspecified foot Status: Acute Assessment and Plan: * Presented with open wound to the right knee * Notable hematoma noted * Continue IV antibiotics, vanco and cefepime * Wound care consult * General surgery consulted Hematoma of left knee region: evacuation of the left knee hematoma per GS. (2) Anemia, macrocytic: Code(s): D53.9 - Nutritional anemia, unspecified Status: Acute Assessment and Plan: * Current H/H 12.4/37.8 * Currently stable * Continue to trend labs * No indications of supplemented noted (3) COPD (chronic obstructive pulmonary disease): Code(s): J44.9 - Chronic obstructive pulmonary disease, unspecified Status: Acute Assessment and Plan: * Currently on room air * Continue home inhalers * No indication of exacerbation * Trend respiratory status (4) Hypertension: Code(s): I10 - Essential (primary) hypertension Status: Acute Assessment and Plan: Patient is on Home Atenolol and amlodipine Blood pressure low and bradycardia Hold atenolol and amlodipine (5) A-fib: Code(s): I48.91 - Unspecified atrial fibrillation Status: Acute Assessment and Plan: * HR currently stable * Hold Eliquis for now * Continue home sotalol * Trend labs and vital signs Resume Eliquis when it is okay for general surgeon * Subjective Date/time seen: 02/21/24 12:19 Interval history: I saw examined patient, patient underwent evacuation of left knee hematoma, patient has leg pain, denies chest pain, shortness of breath, abdomen pain, nausea vomiting diarrhea dysuria. Exam Narrative: GENERAL: Pleasant, in no acute distress. Well-nourished. - EYES: EOMI. Anicteric. - HENT: Moist mucous membranes. - LUNGS: Clear to auscultation bilateral ly, no wheezing, rhonchi, or rales. - CARDIOVASCULAR: Regular rate and rhyth m. No murmur. No JVD. - ABDOMEN: Soft, non-tender and non-dist ended. No palpable masses. - EXTREMITIES: No edema. Peripheral puls es 2+. Non-tender. - NEUROLOGIC: No focal neurological defi cits. CN II-XII grossly intact. - PSYCHIATRIC: Awake, Alert and oriented x 3. Appropriate mood and affect. - SKIN: Left leg surgical wound is well dressed, scant blood drained out from ESME vac - LYMPH: No cervical lymphadenopathy. Objective Data Vital Signs Vital Signs: Vital Signs - 24 hr 02/20/24 14:00 02/20/24 19:42 02/20/24 20:27 Temperature 97.9 F 97.2 F L Pulse Rate 54 L 60 Respiratory Rate 16 18 Blood Pressure 113/65 128/63 Pulse Oximetry 98 95 Oxygen Delivery Room Air Fraction of Inspired Oxygen 07
--- NOTE | 2024-02-21 12:19 | PM.IMPN ---
Progress Note: A&P Assessment and Plan (1) Left leg cellulitis: Code(s): L03.116 - Cellulitis of left lower limb Status: Acute Plan (1) Cellulitis and abscess of left leg Code(s): L03.119 - Cellulitis of unspecified part of limb; L02.619 - Cutaneous abscess of unspecified foot Status: Acute Assessment and Plan: Presented with open wound to the right knee Notable hematoma noted Continue IV antibiotics, vanco and cefepime Wound care consult General surgery consulted Hematoma of left knee region: evacuation of the left knee hematoma per GS. (2) Anemia, macrocytic: Code(s): D53.9 - Nutritional anemia, unspecified Status: Acute Assessment and Plan: Current H/H 12.4/37.8 Currently stable Continue to trend labs No indications of supplemented noted (3) COPD (chronic obstructive pulmonary disease): Code(s): J44.9 - Chronic obstructive pulmonary disease, unspecified Status: Acute Assessment and Plan: Currently on room air Continue home inhalers No indication of exacerbation Trend respiratory status (4) Hypertension: Code(s): I10 - Essential (primary) hypertension Status: Acute Assessment and Plan: Patient is on Home Atenolol and amlodipine Blood pressure low and bradycardia Hold atenolol and amlodipine (5) A-fib: Code(s): I48.91 - Unspecified atrial fibrillation Status: Acute Assessment and Plan: HR currently stable Hold Eliquis for now Continue home sotalol Trend labs and vital signs Resume Eliquis when it is okay for general surgeon Subjective Date/time seen: 02/21/24 12:19 Interval history: I saw examined patient, patient underwent evacuation of left knee hematoma, patient has leg pain, denies chest pain, shortness of breath, abdomen pain, nausea vomiting diarrhea dysuria. Exam Narrative: GENERAL: Pleasant, in no acute distress. Well-nourished. - EYES: EOMI. Anicteric. - HENT: Moist mucous membranes. - LUNGS: Clear to auscultation bilaterally, no wheezing, rhonchi, or rales. - CARDIOVASCULAR: Regular rate and rhythm. No murmur. No JVD. - ABDOMEN: Soft, non-tender and non-distended. No palpable masses. - EXTREMITIES: No edema. Peripheral pulses 2+. Non-tender. - NEUROLOGIC: No focal neurological deficits. CN II-XII grossly intact. - PSYCHIATRIC: Awake, Alert and oriented x 3. Appropriate mood and affect. - SKIN: Left leg surgical wound is well dressed, scant blood drained out from ESME vac - LYMPH: No cervical lymphadenopathy. Objective Data Vital Signs Vital Signs: Vital Signs - 24 hr 02/20/24 14:00 02/20/24 19:42 02/20/24 20:27 Temperature 97.9 F 97.2 F L Pulse Rate 54 L 60 Respiratory Rate 16 18 Blood Pressure 113/65 128/63 Pulse Oximetry 98 95 Oxygen Delivery Room Air Fraction of Inspired Oxygen 02/20/24 20:34 02/20/24 21:35 02/21/24 04:33 Temperature 97.6 F Pulse Rate 60 55 L 82 Respiratory Rate 20 Blood Pressure 152/74 H Pulse Oximetry 95 94 Oxygen Delivery Room Air Fraction of Inspired Oxygen 21 02/21/24 09:00 02/21/24 09:22 02/21/24 12:03 Temperature 98.1 F Pulse Rate 54 L Respiratory Rate 14 Blood Pressure 153/72 H Pulse Oximetry 96 97 Oxygen Delivery Room Air Room Air Room Air Fraction of Inspired Oxygen Intake/Output Intake/Output: Intake & Output 02/18/24 02/19/24 02/20/24 02/21/24 23:59 23:59 23:59 23:59 Intake Total 1840 150 Output Total 400 750 Balance 1440 -600 Meds/Results Medications: Active Medications Generic Name Dose Route Start Last Admin Trade Name Freq PRN Reason Stop Dose Admin Acetaminophen 650 mg 02/19/24 22:56 02/21/24 11:39 Acetaminophen 325 Mg Tablet PO 650 mg Q4H PRN Administration Mild Pain (1-3) or Fever Albuterol 2 puff 02/20/24 04:01 02/21/24 09:22 Albuterol Sulfate (*Sp) Aerosol 1 Puff INHALAT
--- NOTE | 2024-02-21 12:26 | WPDANESEPPF ---
Anes - Initial Pre Proc Eval Procedure: Operation Date: 02/21/24 13:00 Proposed Procedures p Evacuation Left Knee Hematoma - Hero Lang MD Date/Time: 02/21/24 12:26 Surgeon: Med Fitzpatrick MD Pre Op Diagnosis: Cellulitis Failed Outpatient PO/Req IV Abx Patient Data Age: 79 Gender: F Height: 1.7 m Weight: 118.7 kg Last Vital Signs Temp 98.1 F 02/21/24 12:03 Pulse 54 L 02/21/24 12:03 Resp 14 02/21/24 12:03 BP 153/72 H 02/21/24 12:03 Pulse Ox 97 02/21/24 12:03 O2 Del Method Room Air 02/21/24 12:03 FiO2 21 02/20/24 21:35 Allergies Allergy/AdvReac Type Severity Reaction Status Date / Time No Known Allergies Allergy Mild Verified 02/21/24 12:12 Home Medications Medication Instructions Recorded Confirmed Type amlodipine 5 mg tablet 5 mg PO DAILY 08/24/22 02/20/24 History budesonide-formoterol HFA 160 1 puff inhalation BID 08/24/22 02/20/24 History mcg-4.5 mcg/actuation aerosol inhaler (Symbicort) duloxetine 30 mg capsule,delayed 30 mg PO DAILY 08/24/22 02/20/24 History release lovastatin 10 mg tablet 10 mg PO DAILY 08/24/22 02/20/24 History aspirin 81 mg capsule 81 mg PO DAILY 08/25/22 02/20/24 History cholecalciferol (vitamin D3) 25 25 mcg PO DAILY 08/25/22 02/20/24 History mcg (1,000 unit) tablet (Vitamin D3) lorazepam 1 mg tablet 1 mg PO Q6H PRN Anxiety 10/07/23 02/20/24 History apixaban 5 mg tablet (Eliquis) 5 mg PO Q12HR #60 tabs 10/12/23 02/20/24 Rx sotalol 80 mg tablet 80 mg PO Q12HR #60 tabs 10/12/23 02/20/24 Rx albuterol sulfate 90 mcg/actuation 2 puff inhalation Q4H PRN 02/20/24 02/20/24 History aerosol inhaler Shortness Of Breath atenolol 50 mg tablet 50 mg PO DAILY 02/20/24 02/20/24 History Laboratory Tests 02/21/24 05:38 WBC 8.5 K/mm3 (4.5-10.0) RBC 3.91 L M/mm3 (4.2-5.4) Hgb 12.3 g/dL (12.0-15.0) Hct 38.7 % (37.0-47.0) MCV 99.0 fl (80-100) MCH 31.5 pg (26-34) MCHC 31.8 L g/dl (32-36) RDW 13.6 % (11.5-14.5) Plt Count 266 k/mm3 (150-375) MPV 9.9 fl (7.4-10.4) Sodium 137 mmol/L (137-145) Potassium 3.6 mmol/L (3.4-5.0) Chloride 104 mmol/L (98-107) Carbon Dioxide 27 mmol/L (22-30) Anion Gap 6 mmol/L (4-12) BUN 14 mg/dL (7-17) Creatinine 0.80 mg/dL (0.7-1.0) Estim Creat Clear Calc 68 ml/min Estimated GFR > 60 (59 - ) Glucose 94 mg/dL (65-110) Calcium 8.8 mg/dL (8.4-10.2) Total Bilirubin 0.6 mg/dL (0.2-1.3) AST 20 U/L (14-36) ALT 15 U/L (6-35) Alkaline Phosphatase 66 U/L (38-126) Total Protein 6.0 L g/dL (6.3-8.2) Albumin 3.4 L g/dL (3.5-5.1) Patient hx anesthesia problems: none Family hx anesthesia problems: none Results Review: All pre-operative results and documents have been reviewed as part of the pre-operative evaluation. 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 Arthritis Asthma Atrial fibrillation with rapid ventricular response COPD (chronic obstructive pulmonary disease) Depression with anxiety History of cardioversion KATE cardioversion September 2023 Hyperlipidemia Hypertension Psoriasis Rhabdomyolysis (07/2022) Tobacco abuse Surgical History Surgical History History of chest tube placement Family History Family History Sibling Diabetes mellitus Family history of liver disease Other Family history of arthritis Family history of congenital heart disease Family history of malignant neoplasm Hypertension Social History Social History Social History: Surrogate medical decision maker: Saqib Stratton, sibling. Code status: Full code. Smoking pac
--- NOTE | 2024-02-21 12:44 | WPDHPUPDATE1 ---
History and Physical Update Update Date/Time: 02/21/24 12:44 History and Physical has been reviewed, including an updated exam of the patient. There are NO changes in the patient's condition. Risks, benefits, and alternatives have been discussed and questions answered. Patient agrees to proceed with procedure.
[2024-02-21] MEDS: BUPIVACAINE/EPINEPHRINE 0.5% 50 ML VIAL 10 ML INFILTRATE (13:33)
[2024-02-21] MEDS: fentaNYL CITRATE INJ (*CRX) 100 MCG/2 ML VIAL 25 MCG IV PUSH ×4 (14:24→14:35)
--- NOTE | 2024-02-21 14:40 | W.PM.PROC2 ---
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 She was seen in the emergency room and found to have no fractures. She was discharged but then developed what sounds like an infection of the left knee. She went back to the emergency room and CT scan did not show an abscess [place] [id number]. She was prescribed cephalexin and able to be discharged. However, a scab over the hematoma eventually came off and she has been draining bloody drainage since then. She came back to the emergency room and has been admitted. She was evaluated by General surgery and found to have a draining hematoma of substantial size anterior to her patella. She is taken to surgery now for evacuation of the hematoma and possibly closure of the wound over a drain. She has been on vancomycin. Findings 20 x 25 cm hematoma with a lot of residual clot. There was no purulent fluid. A 19 [place] Anibal drain was able to be placed and the wound closed in layers. Description of Procedure Patient was taken to surgery and anesthesia was introduced with LMA. The dressings were removed from her left leg and the knee area with distal thigh and proximal calf were prepped and draped in the field. I initially probed the open wound that had visible hematoma in it. It was obvious that the subcutaneous pocket extended significantly. I measured it as 25 x 20 cm. I then digitally evacuated the clot that was within the wound. We tried remove all clot and fluid that was possible. 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 No purulent infection or signs of infection were seen. I then placed a 19 [place] Anibal drain in the wound bringing the exit site out medial to the hematoma. The drain was sutured to the skin with 2-0 silk. It was cut to the appropriate length so that it would readily drain the entire hematoma. I then closed the wound 1st with subcuticular interrupted 3-0 Vicryl suture. I then closed the skin with vertical mattress sutures of 3-0 nylon. Xeroform gauze fluffs and a Kerlix roll were used to dress the wound and the drain site. The drain had been placed to bulb suction. We then placed a knee immobilizer to keep her knee extended. Patient was then awakened and taken to recovery in good condition. Sponge needle counts were correct x2. Estimated Blood Loss -5 Urine Output 250 Drains Yes (Nineteen [place] Anibal drain in hematoma cavity) Packing No Pathology None sent Complications None Condition Stable Disposition PACU [facility] Billing Surgery - Charge Forward: Surgery Billing (Evacuation 25 x 20 cm hematoma of the left knee, layered closure 3 cm wound over drain.)
--- NOTE | 2024-02-21 15:08 | PC.NURSE ---
Patient returned from OR per bed.
[2024-02-21] MEDS: oxyCODONE/ACETAMINOPHEN (*CRX) 5-325 MG TABLET 1 TABLET PO (15:18)
[2024-02-21] MEDS: ENOXAPARIN 40 MG/0.4 ML SYRINGE SUB-Q (15:19)
[2024-02-21] MEDS: ASPIRIN 81 MG ENTERIC TABLET PO (15:19)
[2024-02-21] MEDS: LACTATED RINGERS 1,000 ML 100 ML IV CONT (15:19)
[2024-02-21] MEDS: ACETAMINOPHEN 500 MG TABLET PO (17:26)
[2024-02-21] MEDS: guaiFENesin/DEXTROMETHORPHAN 10 ML UDC PO (23:53)
[2024-02-22] VITALS (11 sets, daily range): BP systolic 101–128; BP diastolic 40–66; PULSE 54–108; RESP 16–20; TEMP 36.1–37; O2SAT 92–97
[2024-02-22] MEDS: VANCOMYCIN 1,500 MG/NS 500 ML 1,500 MG/500 ML BAG 250 MG IVPB (05:08)
[2024-02-22] MEDS: LORazepam (*CRX) 1 MG TABLET PO ×3 (05:08→17:59)
[2024-02-22] MEDS: guaiFENesin/DEXTROMETHORPHAN 10 ML UDC PO (05:08)
[2024-02-22 06:10] LABS: Hematocrit 38.4 % (37.0-47.0); Hemoglobin 11.9 g/dL (12.0-15.0); Mean Corpuscular Hemoglobin 30.7 pg (26-34); Mean Corpuscular Volume 99.2 fl (80-100); Mean Platelet Volume 10.3 fl (7.4-10.4); Platelet Count Result 295 k/mm3 (150-375); Red Blood Count 3.87 M/mm3 (4.2-5.4); Red Cell Distribution Width 13.5 % (11.5-14.5); White Blood Count 12.9 K/mm3 (4.5-10.0)
[2024-02-22 06:15] LABS: Anion Gap 7 mmol/L (4-12); Blood Urea Nitrogen 17 mg/dL (7-17); Calcium 8.6 mg/dL (8.4-10.2); Carbon Dioxide 26 mmol/L (22-30); Chloride 103 mmol/L (98-107); Estimated CRCL calculation 55 ml/min; Estimated Glomerular Filt Rate 54; Glucose 125 mg/dL (65-110); Potassium 4.3 mmol/L (3.4-5.0); Sodium 136 mmol/L (137-145)
[2024-02-22] MEDS: ALBUTEROL SULFATE (*SP) AEROSOL 1 PUFF 2 PUFF INHALATION ×2 (07:44→20:15)
[2024-02-22] MEDS: FLUTICASONE/SALMETEROL 115-21 MCG INHALER 1 PUFF 2 PUFF INHALATION ×2 (07:46→20:16)
[2024-02-22] MEDS: ENOXAPARIN 40 MG/0.4 ML SYRINGE SUB-Q (08:41)
[2024-02-22] MEDS: LOVASTATIN 10 MG TABLET PO (08:42)
[2024-02-22] MEDS: DULoxetine HCL 30 MG CAPSULE.DR PO (08:42)
[2024-02-22] MEDS: SOTALOL HCL 80 MG TABLET PO ×2 (08:42→19:59)
[2024-02-22] MEDS: ASPIRIN 81 MG ENTERIC TABLET PO (08:43)
[2024-02-22] MEDS: CHOLECALCIFEROL 1,000 UNITS TABLET 1000 UNITS PO (08:43)
--- NOTE | 2024-02-22 09:37 | P.PNIM_ITS ---
Progress Note: A&P Assessment and Plan (1) Left leg cellulitis: Code(s): L03.116 - Cellulitis of left lower limb Status: Acute Plan (1) Cellulitis and abscess of left leg Code(s): L03.119 - Cellulitis of unspecified part of limb; L02.619 - Cutaneous abscess of unspecified foot Status: Acute Assessment and Plan: Presented with open wound to the right knee Notable hematoma noted General surgery consulted Hematoma of left knee region: evacuation of the left knee hematoma per GS. Continue IV antibiotics, vanco and cefepime Wound care consult (2) Anemia, macrocytic: Code(s): D53.9 - Nutritional anemia, unspecified Status: Acute Assessment and Plan: * Current H/H 12.4/37.8 * Currently stable * Continue to trend labs * No indications of supplemented noted Hemoglobin dropped slightly (3) COPD (chronic obstructive pulmonary disease): Code(s): J44.9 - Chronic obstructive pulmonary disease, unspecified Status: Acute Assessment and Plan: * Currently on room air * Continue home inhalers * No indication of exacerbation Stable (4) Hypertension: Code(s): I10 - Essential (primary) hypertension Status: Acute Assessment and Plan: Patient is on Home Atenolol and amlodipine Blood pressure low and bradycardia Hold atenolol and amlodipine (5) A-fib: Code(s): I48.91 - Unspecified atrial fibrillation Status: Acute Assessment and Plan: * HR currently stable * Hold Eliquis for now * Continue home sotalol * Trend labs and vital signs Resume Eliquis when it is okay for general surgeon * Subjective Date/time seen: 02/22/24 09:37 Interval history: I saw examined patient, patient still has leg pain, denies chest pain, shortness of breath, abdomen pain, nausea vomiting diarrhea dysuria. Exam Narrative: GENERAL: Pleasant, in no acute distress. Well-nourished. - EYES: EOMI. Anicteric. - HENT: Moist mucous membranes. - LUNGS: Clear to auscultation bilateral ly, no wheezing, rhonchi, or rales. - CARDIOVASCULAR: Regular rate and rhyth m. No murmur. No JVD. - ABDOMEN: Soft, non-tender and non-dist ended. No palpable masses. - EXTREMITIES: No edema. Peripheral puls es 2+. Non-tender. - NEUROLOGIC: No focal neurological defi cits. CN II-XII grossly intact. - PSYCHIATRIC: Awake, Alert and oriented x 3. Appropriate mood and affect. - SKIN: Left leg surgical wound is well dressed, scant blood drained out from ESME vac - LYMPH: No cervical lymphadenopathy. Objective Data Vital Signs Vital Signs: Vital Signs - 24 hr 02/21/24 12:03 02/21/24 13:57 02/21/24 14:10 Temperature 98.1 F 97.2 F L Pulse Rate 54 L 71 62 Respiratory Rate 14 14 12 Blood Pressure 153/72 H 116/47 L 104/53 L Pulse Oximetry 97 100 100 Oxygen Delivery Room Air Simple Face Mask Simple Face Mask Oxygen Flow Rate 10 10 Fraction of Inspired Oxygen
--- NOTE | 2024-02-22 09:37 | PM.IMPN ---
Progress Note: A&P Assessment and Plan (1) Left leg cellulitis: Code(s): L03.116 - Cellulitis of left lower limb Status: Acute Plan (1) Cellulitis and abscess of left leg Code(s): L03.119 - Cellulitis of unspecified part of limb; L02.619 - Cutaneous abscess of unspecified foot Status: Acute Assessment and Plan: Presented with open wound to the right knee Notable hematoma noted General surgery consulted Hematoma of left knee region: evacuation of the left knee hematoma per GS. Continue IV antibiotics, vanco and cefepime Wound care consult (2) Anemia, macrocytic: Code(s): D53.9 - Nutritional anemia, unspecified Status: Acute Assessment and Plan: Current H/H 12.4/37.8 Currently stable Continue to trend labs No indications of supplemented noted Hemoglobin dropped slightly (3) COPD (chronic obstructive pulmonary disease): Code(s): J44.9 - Chronic obstructive pulmonary disease, unspecified Status: Acute Assessment and Plan: Currently on room air Continue home inhalers No indication of exacerbation Stable (4) Hypertension: Code(s): I10 - Essential (primary) hypertension Status: Acute Assessment and Plan: Patient is on Home Atenolol and amlodipine Blood pressure low and bradycardia Hold atenolol and amlodipine (5) A-fib: Code(s): I48.91 - Unspecified atrial fibrillation Status: Acute Assessment and Plan: HR currently stable Hold Eliquis for now Continue home sotalol Trend labs and vital signs Resume Eliquis when it is okay for general surgeon Subjective Date/time seen: 02/22/24 09:37 Interval history: I saw examined patient, patient still has leg pain, denies chest pain, shortness of breath, abdomen pain, nausea vomiting diarrhea dysuria. Exam Narrative: GENERAL: Pleasant, in no acute distress. Well-nourished. - EYES: EOMI. Anicteric. - HENT: Moist mucous membranes. - LUNGS: Clear to auscultation bilaterally, no wheezing, rhonchi, or rales. - CARDIOVASCULAR: Regular rate and rhythm. No murmur. No JVD. - ABDOMEN: Soft, non-tender and non-distended. No palpable masses. - EXTREMITIES: No edema. Peripheral pulses 2+. Non-tender. - NEUROLOGIC: No focal neurological deficits. CN II-XII grossly intact. - PSYCHIATRIC: Awake, Alert and oriented x 3. Appropriate mood and affect. - SKIN: Left leg surgical wound is well dressed, scant blood drained out from ESME vac - LYMPH: No cervical lymphadenopathy. Objective Data Vital Signs Vital Signs: Vital Signs - 24 hr 02/21/24 12:03 02/21/24 13:57 02/21/24 14:10 Temperature 98.1 F 97.2 F L Pulse Rate 54 L 71 62 Respiratory Rate 14 14 12 Blood Pressure 153/72 H 116/47 L 104/53 L Pulse Oximetry 97 100 100 Oxygen Delivery Room Air Simple Face Mask Simple Face Mask Oxygen Flow Rate 10 10 Fraction of Inspired Oxygen 02/21/24 14:25 02/21/24 14:40 02/21/24 15:13 Temperature 97.4 F L Pulse Rate 64 57 L 51 L Respiratory Rate 14 14 19 Blood Pressure 104/64 96/43 L 117/61 Pulse Oximetry 95 99 91 Oxygen Delivery Room Air Room Air Oxygen Flow Rate Fraction of Inspired Oxygen 02/21/24 15:41 02/21/24 19:04 02/21/24 20:04 Temperature 97.7 F 97.6 F Pulse Rate 52 L 54 L 53 L Respiratory Rate 17 18 18 Blood Pressure 122/76 109/61 Pulse Oximetry 95 98 Oxygen Delivery Oxygen Flow Rate Fraction of Inspired Oxygen 02/21/24 20:44 02/21/24 20:00 02/21/24 20:36 Temperature 97.2 F L Pulse Rate 72 65 Respiratory Rate 18 Blood Pressure 109/50 L Pulse Oximetry 96 Oxygen Delivery Room Air Oxygen Flow Rate Fraction of Inspired Oxygen 02/21/24 22:00 02/22/24 00:36 02/22/24 05:30 Temperature 97.2 F L 97.2 F L 97.0 F L Pulse Rate 65 56 L 56 L Respiratory Rate 18 16 18 Blood Pressure 109/50 L 112/59 L 128/57 L Pulse Oximetry 96 94 97 Oxygen Delivery Oxygen Flow
--- NOTE | 2024-02-22 10:33 | WPDPN ---
Progress Note: A&P Assessment and Plan (1) Hematoma of left knee region: Code(s): S80.02XA - Contusion of left knee, initial encounter Status: Acute Assessment and Plan: Status post incision and drainage of left knee hematoma postop day 1. She is doing fairly well. Knee brace is in place. Output from the drain is old bloody fluid. No worsening redness or swelling is noted of the left knee. Continue local wound care and IV antibiotics to include vancomycin. Will change the dressing today and make sure that the Dioni wrap is around the area the knee since that has migrated towards the calf. Will keep her in the knee brace. She cannot urinate on the bedpan. I think we can go ahead and let her get up to the bedside commode with weight-bearing only on the left leg transfer to a commode. She can also weightbear in the left leg to transfer to a recliner to get out of bed. Continue routine supportive management. (2) Left leg cellulitis: Code(s): L03.116 - Cellulitis of left lower limb Status: Acute Assessment and Plan: Improved after incision and drainage of left knee hematoma. Continue IV antibiotics and local wound care. Subjective Date/time seen: 02/22/24 10:33 Interval history: Patient is willing to get back to bed walk to the bathroom. Otherwise she has no complaints. No fever. Tolerating regular diet. Blood cultures have been negative. She continues on vancomycin for IV [place] [address] today. Exam GI: Other: The left knee has a small open wound with Xeroform on it where the left knee hematoma was drained. There is a surgical drain in place in the subcutaneous tissues. The output is old bloody fluid. No erythema over the left knee. Minimal swelling is noted. She is able to bend the knee. Objective Data Vital Signs Vital Signs: Vital Signs - 24 hr 02/21/24 12:03 02/21/24 13:57 02/21/24 14:10 Temperature 36.7 C 36.2 C L Pulse Rate 54 L 71 62 Respiratory Rate 14 14 12 Blood Pressure 153/72 H 116/47 L 104/53 L Pulse Oximetry 97 100 100 Oxygen Delivery Room Air Simple Face Mask Simple Face Mask Oxygen Flow Rate 10 10 Fraction of Inspired Oxygen 02/21/24 14:25 02/21/24 14:40 02/21/24 15:13 Temperature 36.3 C L Pulse Rate 64 57 L 51 L Respiratory Rate 14 14 19 Blood Pressure 104/64 96/43 L 117/61 Pulse Oximetry 95 99 91 Oxygen Delivery Room Air Room Air Oxygen Flow Rate Fraction of Inspired Oxygen 02/21/24 15:41 02/21/24 19:04 02/21/24 20:04 Temperature 36.5 C 36.4 C Pulse Rate 52 L 54 L 53 L Respiratory Rate 17 18 18 Blood Pressure 122/76 109/61 Pulse Oximetry 95 98 Oxygen Delivery Oxygen Flow Rate Fraction of Inspired Oxygen 02/21/24 20:44 02/21/24 20:00 02/21/24 20:36 Temperature 36.2 C L Pulse Rate 72 65 Respiratory Rate 18 Blood Pressure 109/50 L Pulse Oximetry 96 Oxygen Delivery Room Air Oxygen Flow Rate Fraction of Inspired Oxygen 02/21/24 22:00 02/22/24 00:36 02/22/24 05:30 Temperature 36.2 C L 36.2 C L 36.1 C L Pulse Rate 65 56 L 56 L Respiratory Rate 18 16 18 Blood Pressure 109/50 L 112/59 L 128/57 L Pulse Oximetry 96 94 97 Oxygen Delivery Oxygen Flow Rate Fraction of Inspired Oxygen 02/22/24 07:44 02/22/24 07:44 02/22/24 08:42 Temperature Pulse Rate 63 63 54 L Respiratory Rate 20 20 Blood Pressure Pulse Oximetry 96 Oxygen Delivery Room Air Oxygen Flow Rate Fraction of Inspired Oxygen 21 02/22/24 09:33 Temperature 36.7 C Pulse Rate 60 Respiratory Rate 19 Blood Pressure 118/44 L Pulse Oximetry 94 Oxygen Delivery Oxygen Flow Rate Fraction of Inspired Oxygen Intake/Output Intake/Output: Intake & Output 02/19/24 02/20/24 02/21/24 02/22/24 23:59 23:59 23:59 23:59 Intake Total 1840 996.5 1360 Output Total 400 1810 510 Balance 1440 -813.5 850 Meds/Results Medications: Active Medications
[2024-02-23] VITALS (7 sets, daily range): BP systolic 135–140; BP diastolic 56–59; PULSE 50–68; RESP 16–20; TEMP 36.1–36.7; O2SAT 95–100
[2024-02-23 00:03] LABS: Vancomycin Trough 15.1 ug/mL (10.0-20.0)
[2024-02-23] MEDS: LORazepam (*CRX) 1 MG TABLET PO ×4 (00:10→21:08)
[2024-02-23] MEDS: VANCOMYCIN 1,250 MG/NS 250 ML 1,250 MG/250 ML BAG 166.67 MG IVPB ×2 (01:18→18:24)
[2024-02-23 05:49] LABS: Basophils Absolute Auto 0.1 K/mm3 (0.0-0.1); Basophils Percent Auto 0.9 % (0.2-1.2); Eosinophils Absolute Auto 0.3 K/mm3 (0-0.3); Eosinophils Percent Auto 2.9 % (0-4.4); Hematocrit 37.6 % (37.0-47.0); Hemoglobin 11.6 g/dL (12.0-15.0); Immature Granulocyte Absolute 0.04 K/mm3 (0.00-0.031); Immature Granulocyte Percent A 0.4 % (0-0.5); Lymphocytes Absolute Auto 1.92 K/mm3 (0.9-3.2); Lymphocytes Percent Auto 18.2 % (18.3-44.2); Mean Corpuscular HGB Conc 30.9 g/dl (32-36); Mean Corpuscular Hemoglobin 30.7 pg (26-34); Mean Corpuscular Volume 99.5 fl (80-100); Mean Platelet Volume 10.2 fl (7.4-10.4); Monocytes Absolute Auto 0.9 K/mm3 (0.1-0.6); Monocytes Percent Auto 8.8 % (2.6-8.5); Neutrophils Absolute Auto 7.2 K/mm3 (1.3-6.7); Neutrophils Percent Auto 68.8 % (45.5-73.1); Platelet Count Result 264 k/mm3 (150-375); Red Blood Count 3.78 M/mm3 (4.2-5.4); Red Cell Distribution Width 13.9 % (11.5-14.5); White Blood Count 10.5 K/mm3 (4.5-10.0)
[2024-02-23] MEDS: ALBUTEROL SULFATE (*SP) AEROSOL 1 PUFF 2 PUFF INHALATION (07:41)
[2024-02-23] MEDS: FLUTICASONE/SALMETEROL 115-21 MCG INHALER 1 PUFF 2 PUFF INHALATION (07:41)
[2024-02-23] MEDS: LOVASTATIN 10 MG TABLET PO (09:19)
[2024-02-23] MEDS: SOTALOL HCL 80 MG TABLET PO ×2 (09:19→20:59)
[2024-02-23] MEDS: ASPIRIN 81 MG ENTERIC TABLET PO (09:20)
[2024-02-23] MEDS: CHOLECALCIFEROL 1,000 UNITS TABLET 1000 UNITS PO (09:20)
[2024-02-23] MEDS: ENOXAPARIN 40 MG/0.4 ML SYRINGE SUB-Q (09:20)
[2024-02-23] MEDS: DULoxetine HCL 30 MG CAPSULE.DR PO (09:20)
[2024-02-23] MEDS: ACETAMINOPHEN 500 MG TABLET PO (09:28)
--- NOTE | 2024-02-23 09:55 | P.PNIM_ITS ---
Progress Note: A&P Assessment and Plan (1) Left leg cellulitis: Code(s): L03.116 - Cellulitis of left lower limb Status: Acute Plan (1) Cellulitis and abscess of left leg Code(s): L03.119 - Cellulitis of unspecified part of limb; L02.619 - Cutaneous abscess of unspecified foot Status: Acute Assessment and Plan: Presented with open wound to the right knee Notable hematoma noted General surgery consulted Hematoma of left knee region: evacuation of the left knee hematoma per GS. Continue IV antibiotics, vanco and cefepime Wound care consult (2) Anemia, macrocytic: Code(s): D53.9 - Nutritional anemia, unspecified Status: Acute Assessment and Plan: * Current H/H 12.4/37.8 * Currently stable * Continue to trend labs * No indications of supplemented noted Hemoglobin dropped slightly (3) COPD (chronic obstructive pulmonary disease): Code(s): J44.9 - Chronic obstructive pulmonary disease, unspecified Status: Acute Assessment and Plan: * Currently on room air * Continue home inhalers * No indication of exacerbation Stable (4) Hypertension: Code(s): I10 - Essential (primary) hypertension Status: Acute Assessment and Plan: Patient is on Home Atenolol and amlodipine Blood pressure low and bradycardia Hold atenolol and amlodipine (5) A-fib: Code(s): I48.91 - Unspecified atrial fibrillation Status: Acute Assessment and Plan: * HR currently stable * Hold Eliquis for now * Continue home sotalol * Trend labs and vital signs Resume Eliquis when it is okay for general surgeon * Subjective Date/time seen: 02/23/24 09:55 Interval history: I saw examined patient, patient still has leg pain, scant bloody fluid drained out of from her left leg. she denies chest pain, shortness of breath, abdomen pain, nausea vomiting diarrhea dysuria. Exam Narrative: GENERAL: Pleasant, in no acute distress. Well-nourished. - EYES: EOMI. Anicteric. - HENT: Moist mucous membranes. - LUNGS: Clear to auscultation bilateral ly, no wheezing, rhonchi, or rales. - CARDIOVASCULAR: Regular rate and rhyth m. No murmur. No JVD. - ABDOMEN: Soft, non-tender and non-dist ended. No palpable masses. - EXTREMITIES: No edema. Peripheral puls es 2+. Non-tender. - NEUROLOGIC: No focal neurological defi cits. CN II-XII grossly intact. - PSYCHIATRIC: Awake, Alert and oriented x 3. Appropriate mood and affect. - SKIN: Left leg surgical wound is well dressed, scant blood drained out from ESME vac - LYMPH: No cervical lymphadenopathy. Objective Data Vital Signs Vital Signs: Vital Signs - 24 hr 02/22/24 14:55 02/22/24 17:47 02/22/24 19:42 Temperature 98.6 F 98.3 F Pulse Rate 60 68 68 Respiratory Rate 19 18 18 Blood Pressure 110/40 L 125/66 Pulse Oximetry 95 94 94 Oxygen Delivery Room Air Fraction of Inspired Oxygen 02/22/24
--- NOTE | 2024-02-23 09:55 | PM.IMPN ---
Progress Note: A&P Assessment and Plan (1) Left leg cellulitis: Code(s): L03.116 - Cellulitis of left lower limb Status: Acute Plan (1) Cellulitis and abscess of left leg Code(s): L03.119 - Cellulitis of unspecified part of limb; L02.619 - Cutaneous abscess of unspecified foot Status: Acute Assessment and Plan: Presented with open wound to the right knee Notable hematoma noted General surgery consulted Hematoma of left knee region: evacuation of the left knee hematoma per GS. Continue IV antibiotics, vanco and cefepime Wound care consult (2) Anemia, macrocytic: Code(s): D53.9 - Nutritional anemia, unspecified Status: Acute Assessment and Plan: Current H/H 12.4/37.8 Currently stable Continue to trend labs No indications of supplemented noted Hemoglobin dropped slightly (3) COPD (chronic obstructive pulmonary disease): Code(s): J44.9 - Chronic obstructive pulmonary disease, unspecified Status: Acute Assessment and Plan: Currently on room air Continue home inhalers No indication of exacerbation Stable (4) Hypertension: Code(s): I10 - Essential (primary) hypertension Status: Acute Assessment and Plan: Patient is on Home Atenolol and amlodipine Blood pressure low and bradycardia Hold atenolol and amlodipine (5) A-fib: Code(s): I48.91 - Unspecified atrial fibrillation Status: Acute Assessment and Plan: HR currently stable Hold Eliquis for now Continue home sotalol Trend labs and vital signs Resume Eliquis when it is okay for general surgeon Subjective Date/time seen: 02/23/24 09:55 Interval history: I saw examined patient, patient still has leg pain, scant bloody fluid drained out of from her left leg. she denies chest pain, shortness of breath, abdomen pain, nausea vomiting diarrhea dysuria. Exam Narrative: GENERAL: Pleasant, in no acute distress. Well-nourished. - EYES: EOMI. Anicteric. - HENT: Moist mucous membranes. - LUNGS: Clear to auscultation bilaterally, no wheezing, rhonchi, or rales. - CARDIOVASCULAR: Regular rate and rhythm. No murmur. No JVD. - ABDOMEN: Soft, non-tender and non-distended. No palpable masses. - EXTREMITIES: No edema. Peripheral pulses 2+. Non-tender. - NEUROLOGIC: No focal neurological deficits. CN II-XII grossly intact. - PSYCHIATRIC: Awake, Alert and oriented x 3. Appropriate mood and affect. - SKIN: Left leg surgical wound is well dressed, scant blood drained out from ESME vac - LYMPH: No cervical lymphadenopathy. Objective Data Vital Signs Vital Signs: Vital Signs - 24 hr 02/22/24 14:55 02/22/24 17:47 02/22/24 19:42 Temperature 98.6 F 98.3 F Pulse Rate 60 68 68 Respiratory Rate 19 18 18 Blood Pressure 110/40 L 125/66 Pulse Oximetry 95 94 94 Oxygen Delivery Room Air Fraction of Inspired Oxygen 21 02/22/24 20:18 02/22/24 20:18 02/22/24 22:00 Temperature 97.4 F L Pulse Rate 66 108 H Respiratory Rate 20 18 Blood Pressure 101/44 L Pulse Oximetry 92 97 Oxygen Delivery Room Air Fraction of Inspired Oxygen 02/23/24 07:42 02/23/24 07:42 02/23/24 06:00 Temperature 97.0 F L Pulse Rate 62 63 Respiratory Rate 20 18 Blood Pressure 135/56 L Pulse Oximetry 95 96 Oxygen Delivery Room Air Fraction of Inspired Oxygen 02/23/24 09:19 Temperature Pulse Rate 68 Respiratory Rate Blood Pressure Pulse Oximetry Oxygen Delivery Fraction of Inspired Oxygen Intake/Output Intake/Output: Intake & Output 02/20/24 02/21/24 02/22/24 02/23/24 23:59 23:59 23:59 23:59 Intake Total 1840 996.5 2090 500 Output Total 400 8088 678 8813 Balance 1440 -813.5 1130 -900 Meds/Results Medications: Active Medications Generic Name Dose Route Start Last Admin Trade Name Freq PRN Reason Stop Dose Admin Acetaminophen 500 mg 02/21/24 14:51 02/23/24 09:28 Acetaminophen 500 Mg
--- NOTE | 2024-02-23 11:33 | WPDPN ---
Progress Note: A&P Assessment and Plan (1) Hematoma of left knee region: Code(s): S80.02XA - Contusion of left knee, initial encounter Status: Acute Assessment and Plan: Postop day 2 after incision and drainage of hematoma left knee. ESME drain remains in place. Continue with the drain. Continue with IV vancomycin for now. Continue local wound care. Care coordination work on the ventral discharge disposition. Patient will likely need to go to at least to a long term facility. Subjective Date/time seen: 02/23/24 11:33 Interval history: Patient clinically stable. No new complaints. No fever. White blood cell count down to 10,000 today. She still is on IV vancomycin. Exam Extrem: Other: Right knee wound dressing is dry. ESME drain into the right knee wound continues to have serosanguineous drainage. Bruising noted but no increasing redness or swelling around the knee. Objective Data Vital Signs Vital Signs: Vital Signs - 24 hr 02/22/24 14:55 02/22/24 17:47 02/22/24 19:42 Temperature 37.0 C 36.8 C Pulse Rate 60 68 68 Respiratory Rate 19 18 18 Blood Pressure 110/40 L 125/66 Pulse Oximetry 95 94 94 Oxygen Delivery Room Air Fraction of Inspired Oxygen 21 02/22/24 20:18 02/22/24 20:18 02/22/24 22:00 Temperature 36.3 C L Pulse Rate 66 108 H Respiratory Rate 20 18 Blood Pressure 101/44 L Pulse Oximetry 92 97 Oxygen Delivery Room Air Fraction of Inspired Oxygen 02/23/24 07:42 02/23/24 07:42 02/23/24 06:00 Temperature 36.1 C L Pulse Rate 62 63 Respiratory Rate 20 18 Blood Pressure 135/56 L Pulse Oximetry 95 96 Oxygen Delivery Room Air Fraction of Inspired Oxygen 02/23/24 09:19 Temperature Pulse Rate 68 Respiratory Rate Blood Pressure Pulse Oximetry Oxygen Delivery Fraction of Inspired Oxygen Intake/Output Intake/Output: Intake & Output 02/20/24 02/21/24 02/22/24 02/23/24 23:59 23:59 23:59 23:59 Intake Total 1840 996.5 2090 640 Output Total 400 0904 804 6895 Balance 1440 -813.5 1130 -760 Meds/Results Medications: Active Medications Generic Name Dose Route Start Last Admin Trade Name Freq PRN Reason Stop Dose Admin Acetaminophen 500 mg 02/21/24 14:51 02/23/24 09:28 Acetaminophen 500 Mg Tablet PO 500 mg Q6H PRN Administration Pain Rated 1-3 Albuterol 2 puff 02/20/24 04:01 02/23/24 07:41 Albuterol Sulfate (*Sp) Aerosol 1 Puff INHALATION 2 puff Q6HRT PRN Administration Shortness Of Breath Aspirin 81 mg 02/20/24 09:00 02/23/24 09:20 Aspirin 81 Mg Enteric Tablet PO [address] Administration Duloxetine HCl 30 mg 02/20/24 09:00 02/23/24 09:20 Duloxetine Hcl 30 Mg Capsule.Dr PO [address] Administration Enoxaparin Sodium 40 mg 02/20/24 09:00 02/23/24 09:20 Enoxaparin 40 Mg/0.4 Ml Syringe SUB-Q [address] Administration Guaifenesin/Dextromethorphan 10 ml 02/22/24 04:53 02/22/24 05:08 Guaifenesin/Dextromethorphan 10 Ml Udc PO 10 ml Q4H PRN Administration Cough Ibuprofen 800 mg in 200 mls @ 400 mls/hr 02/21/24 14:51 Caldolor 800 Mg/200 Ml IVPB Q6H PRN Breakthrough Pain Rated 1-3 or NPO Vancomycin HCl 1,250 mg in 250 mls @ 166.667 mls/hr 02/23/24 01:00 02/23/24 01:18 Vancomycin 1,250 Mg/Ns 250 Ml IVPB 166.67 mls/hr Q18H LANE Administration Lorazepam 1 mg 02/20/24 03:51 02/23/24 08:51 Lorazepam (*Crx) 1 Mg Tablet PO 1 mg Q6H PRN Administration Anxiety Lovastatin 10 mg 02/20/24 09:00 02/23/24 09:19 Lovastatin 10 Mg Tablet PO [address] Administration Morphine Sulfate 2 mg 02/21/24 14:51 Morphine Sulfate (*Crx) 2 Mg/Ml Inj IV PUSH Q2H PRN Breakthrough Pain Rated 4-6 or NPO Morphine Sulfate 4 mg 02/21/24 14:51 Morphine Sulfate (*Crx) 4 Mg/Ml Inj IV PUSH Q2H PRN Breakthrough Pain Rated 7-10 or NPO Naloxone HCl 0.1 mg 02/21/24 14:51
[2024-02-24] VITALS (8 sets, daily range): BP systolic 139–154; BP diastolic 76–87; PULSE 55–80; RESP 18–20; TEMP 36.1–36.2; O2SAT 94–100
[2024-02-24] MEDS: LORazepam (*CRX) 1 MG TABLET PO ×4 (03:36→21:55)
[2024-02-24 05:31] LABS: Estimated CRCL calculation 55 ml/min; Estimated Glomerular Filt Rate 54
[2024-02-24] MEDS: FLUTICASONE/SALMETEROL 115-21 MCG INHALER 1 PUFF 2 PUFF INHALATION ×2 (07:31→20:12)
[2024-02-24] MEDS: ALBUTEROL SULFATE (*SP) AEROSOL 1 PUFF 2 PUFF INHALATION ×2 (07:31→20:14)
[2024-02-24] MEDS: ENOXAPARIN 40 MG/0.4 ML SYRINGE SUB-Q (09:11)
[2024-02-24] MEDS: SOTALOL HCL 80 MG TABLET PO ×2 (09:11→21:54)
[2024-02-24] MEDS: DULoxetine HCL 30 MG CAPSULE.DR PO (09:11)
[2024-02-24] MEDS: CHOLECALCIFEROL 1,000 UNITS TABLET 1000 UNITS PO (09:11)
[2024-02-24] MEDS: LOVASTATIN 10 MG TABLET PO (09:12)
[2024-02-24] MEDS: ASPIRIN 81 MG ENTERIC TABLET PO (09:12)
--- NOTE | 2024-02-24 09:44 | P.PNIM_ITS ---
Progress Note: A&P Assessment and Plan (1) Left leg cellulitis: Code(s): L03.116 - Cellulitis of left lower limb Status: Acute Plan (1) Cellulitis and abscess of left leg Code(s): L03.119 - Cellulitis of unspecified part of limb; L02.619 - Cutaneous abscess of unspecified foot Status: Acute Assessment and Plan: Presented with open wound to the right knee Notable hematoma noted General surgery consulted Hematoma of left knee region: evacuation of the left knee hematoma per GS. Continue IV antibiotics, vanco and cefepime Wound care consult Wound culture pending Patient has been on vancomycin 02/22 (2) Anemia, macrocytic: Code(s): D53.9 - Nutritional anemia, unspecified Status: Acute Assessment and Plan: * Current H/H 12.4/37.8 * Currently stable * Continue to trend labs * No indications of supplemented noted Hemoglobin dropped slightly (3) COPD (chronic obstructive pulmonary disease): Code(s): J44.9 - Chronic obstructive pulmonary disease, unspecified Status: Acute Assessment and Plan: * Currently on room air * Continue home inhalers * No indication of exacerbation Stable (4) Hypertension: Code(s): I10 - Essential (primary) hypertension Status: Acute Assessment and Plan: Patient is on Home Atenolol and amlodipine Blood pressure low and bradycardia Hold atenolol and amlodipine (5) A-fib: Code(s): I48.91 - Unspecified atrial fibrillation Status: Acute Assessment and Plan: * HR currently stable * Hold Eliquis for now * Continue home sotalol * Trend labs and vital signs Resume Eliquis when it is okay for general surgeon * Subjective Date/time seen: 02/24/24 09:44 Interval history: I saw examined patient, leg pain is tolerable, no new issue even overnight scant bloody fluid drained out of from her left leg. she denies chest pain, shortness of breath, abdomen pain, nausea vomiting diarrhea dysuria. Exam Narrative: GENERAL: Pleasant, in no acute distress. Well-nourished. - EYES: EOMI. Anicteric. - HENT: Moist mucous membranes. - LUNGS: Clear to auscultation bilateral ly, no wheezing, rhonchi, or rales. - CARDIOVASCULAR: Regular rate and rhyth m. No murmur. No JVD. - ABDOMEN: Soft, non-tender and non-dist ended. No palpable masses. - EXTREMITIES: No edema. Peripheral puls es 2+. Non-tender. - NEUROLOGIC: No focal neurological defi cits. CN II-XII grossly intact. - PSYCHIATRIC: Awake, Alert and oriented x 3. Appropriate mood and affect. - SKIN: Left leg surgical wound is well dressed, scant blood drained out from ESME vac - LYMPH: No cervical lymphadenopathy. Objective Data Vital Signs Vital Signs: Vital Signs - 24 hr 02/23/24 14:00 02/23/24 19:57 02/23/24 22:00 Temperature 98.1 F 97.2 F L Pulse Rate 57 L 57 L 50 L Respiratory Rate 16 16 20 Blood Pressure 139/59 L 140/58 L Pulse Oximetry 95 95 100 Oxygen Deli
--- NOTE | 2024-02-24 09:44 | PM.IMPN ---
Progress Note: A&P Assessment and Plan (1) Left leg cellulitis: Code(s): L03.116 - Cellulitis of left lower limb Status: Acute Plan (1) Cellulitis and abscess of left leg Code(s): L03.119 - Cellulitis of unspecified part of limb; L02.619 - Cutaneous abscess of unspecified foot Status: Acute Assessment and Plan: Presented with open wound to the right knee Notable hematoma noted General surgery consulted Hematoma of left knee region: evacuation of the left knee hematoma per GS. Continue IV antibiotics, vanco and cefepime Wound care consult Wound culture pending Patient has been on vancomycin 02/22 (2) Anemia, macrocytic: Code(s): D53.9 - Nutritional anemia, unspecified Status: Acute Assessment and Plan: Current H/H 12.4/37.8 Currently stable Continue to trend labs No indications of supplemented noted Hemoglobin dropped slightly (3) COPD (chronic obstructive pulmonary disease): Code(s): J44.9 - Chronic obstructive pulmonary disease, unspecified Status: Acute Assessment and Plan: Currently on room air Continue home inhalers No indication of exacerbation Stable (4) Hypertension: Code(s): I10 - Essential (primary) hypertension Status: Acute Assessment and Plan: Patient is on Home Atenolol and amlodipine Blood pressure low and bradycardia Hold atenolol and amlodipine (5) A-fib: Code(s): I48.91 - Unspecified atrial fibrillation Status: Acute Assessment and Plan: HR currently stable Hold Eliquis for now Continue home sotalol Trend labs and vital signs Resume Eliquis when it is okay for general surgeon Subjective Date/time seen: 02/24/24 09:44 Interval history: I saw examined patient, leg pain is tolerable, no new issue even overnight scant bloody fluid drained out of from her left leg. she denies chest pain, shortness of breath, abdomen pain, nausea vomiting diarrhea dysuria. Exam Narrative: GENERAL: Pleasant, in no acute distress. Well-nourished. - EYES: EOMI. Anicteric. - HENT: Moist mucous membranes. - LUNGS: Clear to auscultation bilaterally, no wheezing, rhonchi, or rales. - CARDIOVASCULAR: Regular rate and rhythm. No murmur. No JVD. - ABDOMEN: Soft, non-tender and non-distended. No palpable masses. - EXTREMITIES: No edema. Peripheral pulses 2+. Non-tender. - NEUROLOGIC: No focal neurological deficits. CN II-XII grossly intact. - PSYCHIATRIC: Awake, Alert and oriented x 3. Appropriate mood and affect. - SKIN: Left leg surgical wound is well dressed, scant blood drained out from ESME vac - LYMPH: No cervical lymphadenopathy. Objective Data Vital Signs Vital Signs: Vital Signs - 24 hr 02/23/24 14:00 02/23/24 19:57 02/23/24 22:00 Temperature 98.1 F 97.2 F L Pulse Rate 57 L 57 L 50 L Respiratory Rate 16 16 20 Blood Pressure 139/59 L 140/58 L Pulse Oximetry 95 95 100 Oxygen Delivery Room Air Fraction of Inspired Oxygen 02/24/24 06:00 02/24/24 07:31 02/24/24 07:31 Temperature 97.0 F L Pulse Rate 74 68 Respiratory Rate 18 20 Blood Pressure 154/76 H Pulse Oximetry 96 94 Oxygen Delivery Room Air Fraction of Inspired Oxygen 02/24/24 09:11 Temperature Pulse Rate 55 L Respiratory Rate Blood Pressure Pulse Oximetry Oxygen Delivery Fraction of Inspired Oxygen Intake/Output Intake/Output: Intake & Output 02/21/24 02/22/24 02/23/24 02/24/24 23:59 23:59 23:59 23:59 Intake Total 996.5 2090 1580 720 Output Total 0961 071 8111 Balance -813.5 1130 160 720 Meds/Results Medications: Active Medications Generic Name Dose Route Start Last Admin Trade Name Freq PRN Reason Stop Dose Admin Acetaminophen 500 mg 02/21/24 14:51 02/23/24 09:28 Acetaminophen 500 Mg Tablet PO 500 mg Q6H PRN Administration Pain Rated 1-3 Albuterol 2 puff 02/20/24 04:01 02/24/24 07:31 Albuterol Sulfate
--- NOTE | 2024-02-24 13:25 | PM.PNGS ---
Progress Note: A&P Assessment and Plan (1) Hematoma of left knee region: Code(s): S80.02XA - Contusion of left knee, initial encounter Status: Acute Assessment and Plan: No recurrent hematoma or seroma with ESME drain in place. 20 cc out ESME drain yesterday. Serosanguineous fluid, not purulent. Wound closure looks satisfactory. Still need to avoid knee flexion with knee immobilizer. Continue present care. Okay to start PT and OT as long as knee immobilizer kept in place. (2) Anticoagulant long-term use: Code(s): Z79.01 - snf (current) use of anticoagulants Status: Chronic Assessment and Plan: Eliquis still on hold postop. Receiving prophylactic dose of Lovenox. Continue to hold Eliquis a couple more days. (3) History of atrial fibrillation: Code(s): Z86.79 - Personal history of other diseases of the circulatory system Status: Chronic Assessment and Plan: Heart rate in the 50s or 60s. Continue beta-era Subjective Subjective Date/Time Seen: 02/24/24 13:25 Post Op day: 3 Patient reports: no new complaints (Patient in good spirits), pain is less, tolerating a regular diet and afebrile Interval history: Having trouble keeping the ESME drain to suction and keeping the Dinoi wrap dressing over the appropriate portion of the leg. My nurse practitioner found the dressing to be at her ankle earlier today. She did still have the knee immobilizer in place. Exam Const: General: comfortable, no acute distress, alert and awake Nutritional Appearance: obese Skin: Lesions: lesion noted (Psoriasis plaques) Extrem: Left lower extremity: knee (Wound looks clean and there is no seroma. About 1 mm skin separation.) Details: other (No drainage from incision, waiting for skin separation to fill in further.); no tenderness, no swelling, no ecchymosis and no crepitus Other: Serosanguineous fluid draining per ESME drain. Was wearing the immobilizer. Psych: Speech and movement: Clear speech present Affect: normal affect Attitude: cooperative Insight: Limited insight present (Psych) Objective Data Vital Signs Vital Signs: Vital Signs - 24 hr 02/23/24 14:00 02/23/24 19:57 02/23/24 22:00 Temperature 36.7 C 36.2 C L Pulse Rate 57 L 57 L 50 L Respiratory Rate 16 16 20 Blood Pressure 139/59 L 140/58 L Pulse Oximetry 95 95 100 Oxygen Delivery Room Air Fraction of Inspired Oxygen 02/24/24 06:00 02/24/24 07:31 02/24/24 07:31 Temperature 36.1 C L Pulse Rate 74 68 Respiratory Rate 18 20 Blood Pressure 154/76 H Pulse Oximetry 96 94 Oxygen Delivery Room Air Fraction of Inspired Oxygen 02/24/24 09:11 02/24/24 09:15 Temperature Pulse Rate 55 L 55 L Respiratory Rate Blood Pressure Pulse Oximetry 94 Oxygen Delivery Room Air Fraction of Inspired Oxygen Intake/Output Intake/Output: Intake & Output 02/21/24 02/22/24 02/23/24 02/24/24 23:59 23:59 23:59 23:59 Intake Total 996.5 2090 1580 840 Output Total 4582 387 4983 Balance -813.5 1130 160 840 Meds/Results Medications: Active Medications Generic Name Dose Route Start Last Admin Trade Name Freq PRN Reason Stop Dose Admin Acetaminophen 500 mg 02/21/24 14:51 02/23/24 09:28 Acetaminophen 500 Mg Tablet PO 500 mg Q6H PRN Administration Pain Rated 1-3 Albuterol 2 puff 02/20/24 04:01 02/24/24 07:31 Albuterol Sulfate (*Sp) Aerosol 1 Puff INHALATION 2 puff Q6HRT PRN Administration Shortness Of Breath Aspirin 81 mg 02/20/24 09:00 02/24/24 09:12 Aspirin 81 Mg Enteric Tablet PO [address] Administration Duloxetine HCl 30 mg 02/20/24 09:00 02/24/24 09:11 Duloxetine Hcl 30 Mg Capsule.Dr PO [address] Administration Enoxaparin Sodium 40 mg 02/20/24 09:00 02/24/24 09:11 Enoxaparin 40 Mg/0.4 Ml Syringe SUB-Q [address] Administration Guaifenesin/Dextromethorphan 10 ml 02/22/24 04:53 02/22/24
[2024-02-24] MEDS: VANCOMYCIN 1,250 MG/NS 250 ML 1,250 MG/250 ML BAG 166.67 MG IVPB (14:37)
[2024-02-25 04:04] VITALS: BP 151/89; PULSE 54; RESP 18; TEMP 36.2; O2SAT 96
[2024-02-25] MEDS: LORazepam (*CRX) 1 MG TABLET PO ×3 (04:09→17:01)
[2024-02-25 06:28] LABS: Vancomycin Trough 16.2 ug/mL (10.0-20.0)
[2024-02-25 07:31] VITALS: PULSE 67; RESP 20; O2SAT 95
[2024-02-25] MEDS: FLUTICASONE/SALMETEROL 115-21 MCG INHALER 1 PUFF 2 PUFF INHALATION ×2 (07:31→19:23)
[2024-02-25] MEDS: ALBUTEROL SULFATE (*SP) AEROSOL 1 PUFF 2 PUFF INHALATION ×2 (07:33→19:23)
[2024-02-25] MEDS: ACETAMINOPHEN 500 MG TABLET PO (07:52)
--- NOTE | 2024-02-25 08:51 | P.PNIM_ITS ---
Progress Note: A&P Assessment and Plan (1) Left leg cellulitis: Code(s): L03.116 - Cellulitis of left lower limb Status: Acute Plan (1) Cellulitis and abscess of left leg Code(s): L03.119 - Cellulitis of unspecified part of limb; L02.619 - Cutaneous abscess of unspecified foot Status: Acute Assessment and Plan: Presented with open wound to the right knee Notable hematoma noted General surgery consulted Hematoma of left knee region: evacuation of the left knee hematoma per GS. Continue IV antibiotics, vanco and cefepime Wound care consult Wound culture pending Patient has been on vancomycin 02/22 (2) Anemia, macrocytic: Code(s): D53.9 - Nutritional anemia, unspecified Status: Acute Assessment and Plan: * Current H/H 12.4/37.8 * Currently stable * Continue to trend labs * No indications of supplemented noted Hemoglobin dropped slightly (3) COPD (chronic obstructive pulmonary disease): Code(s): J44.9 - Chronic obstructive pulmonary disease, unspecified Status: Acute Assessment and Plan: * Currently on room air * Continue home inhalers * No indication of exacerbation Stable (4) Hypertension: Code(s): I10 - Essential (primary) hypertension Status: Acute Assessment and Plan: Patient is on Home Atenolol and amlodipine Blood pressure low and bradycardia Hold atenolol and amlodipine (5) A-fib: Code(s): I48.91 - Unspecified atrial fibrillation Status: Acute Assessment and Plan: * HR currently stable * Hold Eliquis for now * Continue home sotalol * Trend labs and vital signs Resume Eliquis when it is okay for general surgeon * Subjective Date/time seen: 02/25/24 08:51 Interval history: I saw examined patient, leg pain is tolerable, no new issue even overnight scant bloody fluid drained out of from her left leg. she denies chest pain, shortness of breath, abdomen pain, nausea vomiting diarrhea dysuria. Patient ambulated with assistance of a physical therapist today Exam Narrative: GENERAL: Pleasant, in no acute distress. Well-nourished. - EYES: EOMI. Anicteric. - HENT: Moist mucous membranes. - LUNGS: Clear to auscultation bilateral ly, no wheezing, rhonchi, or rales. - CARDIOVASCULAR: Regular rate and rhyth m. No murmur. No JVD. - ABDOMEN: Soft, non-tender and non-dist ended. No palpable masses. - EXTREMITIES: No edema. Peripheral puls es 2+. Non-tender. - NEUROLOGIC: No focal neurological defi cits. CN II-XII grossly intact. - PSYCHIATRIC: Awake, Alert and oriented x 3. Appropriate mood and affect. - SKIN: Left leg surgical wound is well dressed, scant blood drained out from ESME vac - LYMPH: No cervical lymphadenopathy. Objective Data Vital Signs Vital Signs: Vital Signs - 24 hr 02/24/24 09:11 02/24/24 09:15 02/24/24 14:00 Temperature 97.2 F L Pulse Rate 55 L 55 L 80 Respiratory Rate 18 Blood Pressure 144/84 H
--- NOTE | 2024-02-25 08:51 | PM.IMPN ---
Progress Note: A&P Assessment and Plan (1) Left leg cellulitis: Code(s): L03.116 - Cellulitis of left lower limb Status: Acute Plan (1) Cellulitis and abscess of left leg Code(s): L03.119 - Cellulitis of unspecified part of limb; L02.619 - Cutaneous abscess of unspecified foot Status: Acute Assessment and Plan: Presented with open wound to the right knee Notable hematoma noted General surgery consulted Hematoma of left knee region: evacuation of the left knee hematoma per GS. Continue IV antibiotics, vanco and cefepime Wound care consult Wound culture pending Patient has been on vancomycin 02/22 (2) Anemia, macrocytic: Code(s): D53.9 - Nutritional anemia, unspecified Status: Acute Assessment and Plan: Current H/H 12.4/37.8 Currently stable Continue to trend labs No indications of supplemented noted Hemoglobin dropped slightly (3) COPD (chronic obstructive pulmonary disease): Code(s): J44.9 - Chronic obstructive pulmonary disease, unspecified Status: Acute Assessment and Plan: Currently on room air Continue home inhalers No indication of exacerbation Stable (4) Hypertension: Code(s): I10 - Essential (primary) hypertension Status: Acute Assessment and Plan: Patient is on Home Atenolol and amlodipine Blood pressure low and bradycardia Hold atenolol and amlodipine (5) A-fib: Code(s): I48.91 - Unspecified atrial fibrillation Status: Acute Assessment and Plan: HR currently stable Hold Eliquis for now Continue home sotalol Trend labs and vital signs Resume Eliquis when it is okay for general surgeon Subjective Date/time seen: 02/25/24 08:51 Interval history: I saw examined patient, leg pain is tolerable, no new issue even overnight scant bloody fluid drained out of from her left leg. she denies chest pain, shortness of breath, abdomen pain, nausea vomiting diarrhea dysuria. Patient ambulated with assistance of a physical therapist today Exam Narrative: GENERAL: Pleasant, in no acute distress. Well-nourished. - EYES: EOMI. Anicteric. - HENT: Moist mucous membranes. - LUNGS: Clear to auscultation bilaterally, no wheezing, rhonchi, or rales. - CARDIOVASCULAR: Regular rate and rhythm. No murmur. No JVD. - ABDOMEN: Soft, non-tender and non-distended. No palpable masses. - EXTREMITIES: No edema. Peripheral pulses 2+. Non-tender. - NEUROLOGIC: No focal neurological deficits. CN II-XII grossly intact. - PSYCHIATRIC: Awake, Alert and oriented x 3. Appropriate mood and affect. - SKIN: Left leg surgical wound is well dressed, scant blood drained out from ESME vac - LYMPH: No cervical lymphadenopathy. Objective Data Vital Signs Vital Signs: Vital Signs - 24 hr 02/24/24 09:11 02/24/24 09:15 02/24/24 14:00 Temperature 97.2 F L Pulse Rate 55 L 55 L 80 Respiratory Rate 18 Blood Pressure 144/84 H Pulse Oximetry 94 100 Oxygen Delivery Room Air Fraction of Inspired Oxygen 02/24/24 19:41 02/24/24 20:15 02/24/24 21:54 Temperature 97 F L Pulse Rate 58 L 58 L Respiratory Rate 18 Blood Pressure 139/87 Pulse Oximetry 97 96 Oxygen Delivery Room Air Fraction of Inspired Oxygen 02/24/24 21:48 02/25/24 04:04 02/25/24 07:31 Temperature 97.2 F L Pulse Rate 54 L Respiratory Rate 18 Blood Pressure 151/89 H Pulse Oximetry 96 95 Oxygen Delivery Room Air Room Air Fraction of Inspired Oxygen 21 02/25/24 07:31 02/25/24 07:51 Temperature Pulse Rate 67 Respiratory Rate 20 Blood Pressure Pulse Oximetry Oxygen Delivery Room Air Fraction of Inspired Oxygen Intake/Output Intake/Output: Intake & Output 02/22/24 02/23/24 02/24/24 02/25/24 23:59 23:59 23:59 23:59 Intake Total 2090 1580 2364 300 Output Total 960 1420 15 Balance 8003 981 6469 285 Meds/Results Medications: Active Medications Gene
[2024-02-25] MEDS: ENOXAPARIN 40 MG/0.4 ML SYRINGE SUB-Q (09:05)
[2024-02-25] MEDS: SOTALOL HCL 80 MG TABLET PO ×2 (09:05→20:24)
[2024-02-25] MEDS: DULoxetine HCL 30 MG CAPSULE.DR PO (09:05)
[2024-02-25] MEDS: ASPIRIN 81 MG ENTERIC TABLET PO (09:05)
[2024-02-25] MEDS: CHOLECALCIFEROL 1,000 UNITS TABLET 1000 UNITS PO (09:05)
[2024-02-25] MEDS: LOVASTATIN 10 MG TABLET PO (09:05)
[2024-02-25] MEDS: polyethylene glycoL 3350 17 GM POWD.PACK PO (09:06)
[2024-02-25] MEDS: DOXYCYCLINE HYCLATE 100 MG TABLET PO ×2 (10:16→20:24)
[2024-02-25 14:00] VITALS: BP 140/69; PULSE 60; RESP 14; TEMP 36.3; O2SAT 94
--- NOTE | 2024-02-25 14:35 | PM.PNGS ---
Progress Note: A&P Assessment and Plan (1) Hematoma of left knee region: Code(s): S80.02XA - Contusion of left knee, initial encounter Status: Acute Assessment and Plan: No recurrent hematoma or seroma with ESME drain in place. ESME drain still with serosanguineous fluid and 15 cc out from the ESME drain overnight. Wound closure is healing well. PT/OT following. She is increasing activity and ambulating, but needs to continue to use the knee immobilizer to avoid knee flexion. (2) Anticoagulant long-term use: Code(s): Z79.01 - [facility] (current) use of anticoagulants Status: Chronic Assessment and Plan: Eliquis still on hold postop. Receiving prophylactic dose of Lovenox. Continue to hold Eliquis a couple more days. (3) History of atrial fibrillation: Code(s): Z86.79 - Personal history of other diseases of the circulatory system Status: Chronic Subjective Subjective Date/Time Seen: 02/25/24 14:35 Post Op day: 4 (Evacuation left knee hematoma, layered closure 3 cm wound) Patient reports: tolerating a regular diet and afebrile Interval history: Patient feeling tired today but no other new complaints. She denies any pain in her left leg. She has been getting up with staff with the knee immobilizer and doing well with this. She denies any other specific complaints at this time. Exam Const: General: comfortable and no acute distress Extrem: Left lower extremity: knee Details: no tenderness, no swelling, no ecchymosis and no crepitus Other: Left knee immobilizer and lukasz wrap removed. Left anterior knee incision dry with sutures intact. No drainage from incision. ESME drain medial to the incision with scant serosanguineous drainage. Objective Data Vital Signs Vital Signs: Vital Signs - 24 hr 02/24/24 19:41 02/24/24 20:15 02/24/24 21:54 Temperature 97 F L Pulse Rate 58 L 58 L Respiratory Rate 18 Blood Pressure 139/87 Pulse Oximetry 97 96 Oxygen Delivery Room Air Fraction of Inspired Oxygen 02/24/24 21:48 02/25/24 04:04 02/25/24 07:31 Temperature 97.2 F L Pulse Rate 54 L Respiratory Rate 18 Blood Pressure 151/89 H Pulse Oximetry 96 95 Oxygen Delivery Room Air Room Air Fraction of Inspired Oxygen 02/25/24 07:31 02/25/24 07:51 02/25/24 10:20 Temperature Pulse Rate 67 Respiratory Rate 20 Blood Pressure Pulse Oximetry Oxygen Delivery Room Air Room Air Fraction of Inspired Oxygen 02/25/24 14:00 Temperature 97.3 F L Pulse Rate 60 Respiratory Rate 14 Blood Pressure 140/69 Pulse Oximetry 94 Oxygen Delivery Fraction of Inspired Oxygen Intake/Output Intake/Output: Intake & Output 02/22/24 02/23/24 02/24/24 02/25/24 23:59 23:59 23:59 23:59 Intake Total 2090 1580 2364 900 Output Total 960 1420 15 Balance 5316 711 3268 885 Meds/Results Medications: Active Medications Generic Name Dose Route Start Last Admin Trade Name Freq PRN Reason Stop Dose Admin Acetaminophen 500 mg 02/21/24 14:51 02/25/24 07:52 Acetaminophen 500 Mg Tablet PO 500 mg Q6H PRN Administration Pain Rated 1-3 Albuterol 2 puff 02/20/24 04:01 02/25/24 07:33 Albuterol Sulfate (*Sp) Aerosol 1 Puff INHALATION 2 puff Q6HRT PRN Administration Shortness Of Breath Amoxicillin 500 mg 02/25/24 14:00 Amoxicillin 500 Mg Capsule PO 02/29/24 23:[address] Aspirin 81 mg 02/20/24 09:00 02/25/24 09:05 Aspirin 81 Mg Enteric Tablet PO [address] Administration Doxycycline Hyclate 100 mg 02/25/24 09:15 02/25/24 10:16 Doxycycline Hyclate 100 Mg Tablet PO 02/29/24 23:[address] Administration Duloxetine HCl 30 mg 02/20/24 09:00 02/25/24 09:05 Duloxetine Hcl 30 Mg Capsule.Dr PO [address] Administration Enoxaparin Sodium 40 mg 02/20/24 09:00 02/25/24 09:05 Enoxaparin 40 Mg/0.4 Ml Syringe SUB-Q [address] Administration Guaifen
[2024-02-25] MEDS: AMOXICILLIN 500 MG CAPSULE PO ×2 (15:00→20:24)
[2024-02-25 19:26] VITALS: PULSE 83; RESP 16; O2SAT 96
[2024-02-25 20:03] LABS: Hemoglobin 12.5 g/dL (12.0-15.0); Mean Corpuscular HGB Conc 32.1 g/dl (32-36); Mean Corpuscular Hemoglobin 31.1 pg (26-34); Mean Platelet Volume 10.1 fl (7.4-10.4); Platelet Count Result 239 k/mm3 (150-375); Red Blood Count 4.02 M/mm3 (4.2-5.4); Red Cell Distribution Width 13.5 % (11.5-14.5); White Blood Count 8.3 K/mm3 (4.5-10.0)
[2024-02-25 20:08] VITALS: BP 125/55; PULSE 55; RESP 18; TEMP 36.1; O2SAT 97
[2024-02-25 20:12] LABS: Anion Gap 5 mmol/L (4-12); Blood Urea Nitrogen 18 mg/dL (7-17); Calcium 8.9 mg/dL (8.4-10.2); Carbon Dioxide 32 mmol/L (22-30); Chloride 102 mmol/L (98-107); Estimated CRCL calculation 51 ml/min; Estimated Glomerular Filt Rate 48; Glucose 91 mg/dL (65-110); Potassium 3.9 mmol/L (3.4-5.0); Sodium 139 mmol/L (137-145)
[2024-02-26] VITALS (7 sets, daily range): BP systolic 149–153; BP diastolic 80–89; PULSE 54–81; RESP 16–20; TEMP 36.4; O2SAT 96–100
[2024-02-26] MEDS: LORazepam (*CRX) 1 MG TABLET PO ×4 (00:50→22:00)
[2024-02-26] MEDS: AMOXICILLIN 500 MG CAPSULE PO (05:10)
[2024-02-26] MEDS: ALBUTEROL SULFATE (*SP) AEROSOL 1 PUFF 2 PUFF INHALATION ×2 (07:45→21:00)
[2024-02-26] MEDS: FLUTICASONE/SALMETEROL 115-21 MCG INHALER 1 PUFF 2 PUFF INHALATION (07:47)
--- NOTE | 2024-02-26 08:38 | P.PNIM_ITS ---
Progress Note: A&P Assessment and Plan (1) Left leg cellulitis: Code(s): L03.116 - Cellulitis of left lower limb Status: Acute Plan (1) Cellulitis and abscess of left leg Code(s): L03.119 - Cellulitis of unspecified part of limb; L02.619 - Cutaneous abscess of unspecified foot Status: Acute Assessment and Plan: Presented with open wound to the right knee Notable hematoma noted General surgery consulted Hematoma of left knee region: evacuation of the left knee hematoma per GS. received IV antibiotics, vanco and cefepime Wound care consult Wound culture: MRAS Patient has been on vancomycin 02/22 Change to back chain per general surgeon (2) Anemia, macrocytic: Code(s): D53.9 - Nutritional anemia, unspecified Status: Acute Assessment and Plan: * Current H/H 12.4/37.8 * Currently stable * Continue to trend labs * No indications of supplemented noted Hemoglobin dropped slightly (3) COPD (chronic obstructive pulmonary disease): Code(s): J44.9 - Chronic obstructive pulmonary disease, unspecified Status: Acute Assessment and Plan: * Currently on room air * Continue home inhalers * No indication of exacerbation Stable (4) Hypertension: Code(s): I10 - Essential (primary) hypertension Status: Acute Assessment and Plan: Patient is on Home Atenolol and amlodipine Blood pressure low and bradycardia Hold atenolol and amlodipine (5) A-fib: Code(s): I48.91 - Unspecified atrial fibrillation Status: Acute Assessment and Plan: * HR currently stable * Hold Eliquis for now * Continue home sotalol * Trend labs and vital signs Resume Eliquis when it is okay for general surgeon Consult PT OT patient care secretary for evaluation and assisting placement, may be discharged to rehab on Saturday Subjective Date/time seen: 02/26/24 08:38 Interval history: I saw examined patient, leg pain is tolerable, no new issue even overnight she denies chest pain, shortness of breath, abdomen pain, nausea vomiting diarrhea dysuria. Patient ambulated with assistance of a physical therapist today Exam Narrative: GENERAL: Pleasant, in no acute distress. Well-nourished. - EYES: EOMI. Anicteric. - HENT: Moist mucous membranes. - LUNGS: Clear to auscultation bilateral ly, no wheezing, rhonchi, or rales. - CARDIOVASCULAR: Regular rate and rhyth m. No murmur. No JVD. - ABDOMEN: Soft, non-tender and non-dist ended. No palpable masses. - EXTREMITIES: No edema. Peripheral puls es 2+. Non-tender. - NEUROLOGIC: No focal neurological defi cits. CN II-XII grossly intact. - PSYCHIATRIC: Awake, Alert and oriented x 3. Appropriate mood and affect. - SKIN: Left leg surgical wound is well dressed, scant blood drained out from ESME vac - LYMPH: No cervical lymphadenopathy. Objective Data Vital Signs Vital Signs: Vital Signs - 24 hr 02/25/24 10:20 02/25/24 14:00 02/25/24 19:26 Temperature 97.3 F L Pulse Rate
--- NOTE | 2024-02-26 08:38 | PM.IMPN ---
Progress Note: A&P Assessment and Plan (1) Left leg cellulitis: Code(s): L03.116 - Cellulitis of left lower limb Status: Acute Plan (1) Cellulitis and abscess of left leg Code(s): L03.119 - Cellulitis of unspecified part of limb; L02.619 - Cutaneous abscess of unspecified foot Status: Acute Assessment and Plan: Presented with open wound to the right knee Notable hematoma noted General surgery consulted Hematoma of left knee region: evacuation of the left knee hematoma per GS. received IV antibiotics, vanco and cefepime Wound care consult Wound culture: MRAS Patient has been on vancomycin 02/22 Change to back chain per general surgeon (2) Anemia, macrocytic: Code(s): D53.9 - Nutritional anemia, unspecified Status: Acute Assessment and Plan: Current H/H 12.4/37.8 Currently stable Continue to trend labs No indications of supplemented noted Hemoglobin dropped slightly (3) COPD (chronic obstructive pulmonary disease): Code(s): J44.9 - Chronic obstructive pulmonary disease, unspecified Status: Acute Assessment and Plan: Currently on room air Continue home inhalers No indication of exacerbation Stable (4) Hypertension: Code(s): I10 - Essential (primary) hypertension Status: Acute Assessment and Plan: Patient is on Home Atenolol and amlodipine Blood pressure low and bradycardia Hold atenolol and amlodipine (5) A-fib: Code(s): I48.91 - Unspecified atrial fibrillation Status: Acute Assessment and Plan: HR currently stable Hold Eliquis for now Continue home sotalol Trend labs and vital signs Resume Eliquis when it is okay for general surgeon Consult PT OT life care planner for evaluation and assisting placement, may be discharged to rehab on Saturday Subjective Date/time seen: 02/26/24 08:38 Interval history: I saw examined patient, leg pain is tolerable, no new issue even overnight she denies chest pain, shortness of breath, abdomen pain, nausea vomiting diarrhea dysuria. Patient ambulated with assistance of a physical therapist today Exam Narrative: GENERAL: Pleasant, in no acute distress. Well-nourished. - EYES: EOMI. Anicteric. - HENT: Moist mucous membranes. - LUNGS: Clear to auscultation bilaterally, no wheezing, rhonchi, or rales. - CARDIOVASCULAR: Regular rate and rhythm. No murmur. No JVD. - ABDOMEN: Soft, non-tender and non-distended. No palpable masses. - EXTREMITIES: No edema. Peripheral pulses 2+. Non-tender. - NEUROLOGIC: No focal neurological deficits. CN II-XII grossly intact. - PSYCHIATRIC: Awake, Alert and oriented x 3. Appropriate mood and affect. - SKIN: Left leg surgical wound is well dressed, scant blood drained out from ESME vac - LYMPH: No cervical lymphadenopathy. Objective Data Vital Signs Vital Signs: Vital Signs - 24 hr 02/25/24 10:20 02/25/24 14:00 02/25/24 19:26 Temperature 97.3 F L Pulse Rate 60 83 Respiratory Rate 14 16 Blood Pressure 140/69 Pulse Oximetry 94 96 Oxygen Delivery Room Air Room Air 02/25/24 20:08 02/25/24 20:00 02/26/24 05:10 Temperature 97 F L 97.6 F Pulse Rate 55 L 65 Respiratory Rate 18 18 Blood Pressure 125/55 L 153/80 H Pulse Oximetry 97 96 Oxygen Delivery Room Air 02/26/24 07:45 02/26/24 07:45 Temperature Pulse Rate 81 81 Respiratory Rate 16 18 Blood Pressure Pulse Oximetry 98 Oxygen Delivery Room Air Intake/Output Intake/Output: Intake & Output 02/23/24 02/24/24 02/25/24 02/26/24 23:59 23:59 23:59 23:59 Intake Total 1580 2364 1490 250 Output Total 1420 20 2 Balance 160 2364 1470 248 Meds/Results Medications: Active Medications Generic Name Dose Route Start Last Admin Trade Name Alejandroq PRN Reason Stop Dose Admin Acetaminophen 500 mg 02/21/24 14:51 02/25/24 07:52 Acetaminophen 500 Mg Tablet PO 500 mg Q6H PRN Administration Pain Ra
--- NOTE | 2024-02-26 08:47 | PM.PNGS ---
Progress Note: A&P Assessment and Plan (1) Hematoma of left knee region: Code(s): S80.02XA - Contusion of left knee, initial encounter Status: Acute Assessment and Plan: Continues to heal well. Will discontinue ESME drain and knee immobilizer. Continue physical therapy. Hopefully transfer to skilled nursing Saturday or Saturday. (2) Anticoagulant long-term use: Code(s): Z79.01 - meterman (current) use of anticoagulants Status: Chronic Assessment and Plan: Will resume Eliquis today. (3) History of atrial fibrillation: Code(s): Z86.79 - Personal history of other diseases of the circulatory system Status: Chronic Subjective Subjective Date/Time Seen: 02/26/24 08:47 Post Op day: 5 Patient reports: no new complaints Exam Extrem: Right lower extremity: knee (Wound looks good, no seroma. Minimal ESME output) Objective Data Vital Signs Vital Signs: Vital Signs - 24 hr 02/25/24 10:20 02/25/24 14:00 02/25/24 19:26 Temperature 36.3 C L Pulse Rate 60 83 Respiratory Rate 14 16 Blood Pressure 140/69 Pulse Oximetry 94 96 Oxygen Delivery Room Air Room Air 02/25/24 20:08 02/25/24 20:00 02/26/24 05:10 Temperature 36.1 C L 36.4 C Pulse Rate 55 L 65 Respiratory Rate 18 18 Blood Pressure 125/55 L 153/80 H Pulse Oximetry 97 96 Oxygen Delivery Room Air 02/26/24 07:45 02/26/24 07:45 Temperature Pulse Rate 81 81 Respiratory Rate 16 18 Blood Pressure Pulse Oximetry 98 Oxygen Delivery Room Air Intake/Output Intake/Output: Intake & Output 02/23/24 02/24/24 02/25/24 02/26/24 23:59 23:59 23:59 23:59 Intake Total 1580 2364 1490 490 Output Total 1420 20 2 Balance 160 2364 1470 488 Meds/Results Medications: Active Medications Generic Name Dose Route Start Last Admin Trade Name Freq PRN Reason Stop Dose Admin Acetaminophen 500 mg 02/21/24 14:51 02/25/24 07:52 Acetaminophen 500 Mg Tablet PO 500 mg Q6H PRN Administration Pain Rated 1-3 Albuterol 2 puff 02/20/24 04:01 02/26/24 07:45 Albuterol Sulfate (*Sp) Aerosol 1 Puff INHALATION 2 puff Q6HRT PRN Administration Shortness Of Breath Amoxicillin 500 mg 02/25/24 14:00 02/26/24 05:10 Amoxicillin 500 Mg Capsule PO 02/29/24 23:[address] Administration Aspirin 81 mg 02/20/24 09:00 02/25/24 09:05 Aspirin 81 Mg Enteric Tablet PO [address] Administration Doxycycline Hyclate 100 mg 02/25/24 09:15 02/25/24 20:24 Doxycycline Hyclate 100 Mg Tablet PO 02/29/24 23:[address] Administration Duloxetine HCl 30 mg 02/20/24 09:00 02/25/24 09:05 Duloxetine Hcl 30 Mg Capsule.Dr PO [address] Administration Enoxaparin Sodium 40 mg 02/20/24 09:00 02/25/24 09:05 Enoxaparin 40 Mg/0.4 Ml Syringe SUB-Q [address] Administration Guaifenesin/Dextromethorphan 10 ml 02/22/24 04:53 02/22/24 05:08 Guaifenesin/Dextromethorphan 10 Ml Udc PO 10 ml Q4H PRN Administration Cough Ibuprofen 800 mg in 200 mls @ 400 mls/hr 02/21/24 14:51 Caldolor 800 Mg/200 Ml IVPB Q6H PRN Breakthrough Pain Rated 1-3 or NPO Lorazepam 1 mg 02/20/24 03:51 02/26/24 00:50 Lorazepam (*Crx) 1 Mg Tablet PO 1 mg Q6H PRN Administration Anxiety Lovastatin 10 mg 02/20/24 09:00 02/25/24 09:05 Lovastatin 10 Mg Tablet PO [address] Administration Morphine Sulfate 1 mg 02/24/24 13:38 Morphine Sulfate (*Crx) 2 Mg/Ml Inj IV PUSH Q2H PRN Breakthrough Pain Rated 4-6 or NPO Morphine Sulfate 2 mg 02/24/24 13:38 Morphine Sulfate (*Crx) 4 Mg/Ml Inj IV PUSH Q2H PRN Breakthrough Pain Rated 7-10 or NPO Naloxone HCl 0.1 mg 02/21/24 14:51 Naloxone Hcl 0.4 Mg/Ml Vial IV PUSH Q2M PRN Opiate Reversal Ondansetron HCl 4 mg 02/19/24 22:56 Ondansetron Inj 4 Mg/2 Ml Vial IV PUSH Q4H PRN Nausea Oxycodone/Acetaminophen 0.5 tab
[2024-02-26] MEDS: CHOLECALCIFEROL 1,000 UNITS TABLET 1000 UNITS PO (09:21)
[2024-02-26] MEDS: DOXYCYCLINE HYCLATE 100 MG TABLET PO (09:21)
[2024-02-26] MEDS: DULoxetine HCL 30 MG CAPSULE.DR PO (09:21)
[2024-02-26] MEDS: ASPIRIN 81 MG ENTERIC TABLET PO (09:21)
[2024-02-26] MEDS: LOVASTATIN 10 MG TABLET PO (09:21)
[2024-02-26] MEDS: SOTALOL HCL 80 MG TABLET PO ×2 (09:22→20:31)
[2024-02-26] MEDS: APIXABAN 5 MG TABLET PO ×2 (09:23→20:31)
[2024-02-26] MEDS: ENOXAPARIN 40 MG/0.4 ML SYRINGE SUB-Q (09:26)
[2024-02-26] MEDS: ACETAMINOPHEN 500 MG TABLET PO (16:09)
[2024-02-26] MEDS: SENNA/DOCUSATE SODIUM TABLET 2 TAB PO (20:30)
[2024-02-26] MEDS: SULFAMETHOXAZOLE/TRIMETHOPRIM 800/160 MG DS TABLET 1 TAB PO (20:31)
[2024-02-27] VITALS (7 sets, daily range): BP systolic 139–167; BP diastolic 43–63; PULSE 51–78; RESP 16–20; TEMP 36.1–36.6; O2SAT 96–99
[2024-02-27] MEDS: ACETAMINOPHEN 500 MG TABLET PO ×2 (00:50→16:21)
[2024-02-27] MEDS: LORazepam (*CRX) 1 MG TABLET PO ×4 (03:58→22:50)
[2024-02-27] MEDS: FLUTICASONE/SALMETEROL 115-21 MCG INHALER 1 PUFF 2 PUFF INHALATION ×2 (07:55→20:20)
[2024-02-27] MEDS: ALBUTEROL SULFATE (*SP) AEROSOL 1 PUFF 2 PUFF INHALATION (07:58)
--- NOTE | 2024-02-27 08:18 | PM.PNGS ---
Progress Note: A&P Assessment and Plan (1) Hematoma of left knee region: Code(s): S80.02XA - Contusion of left knee, initial encounter Status: Acute Assessment and Plan: Wound healing well. Will remove sutures and have Steri-Strips placed. Possibly discharge to nursing facility tomorrow. Patient cannot return home at this point. (2) MRSA infection: Code(s): A49.02 - Methicillin resistant Staphylococcus aureus infection, unspecified site Status: Acute Assessment and Plan: On Bactrim DS. (3) History of atrial fibrillation: Code(s): Z86.79 - Personal history of other diseases of the circulatory system Status: Chronic (4) Anticoagulant long-term use: Code(s): Z79.01 - long term care phlebotomist (current) use of anticoagulants Status: Chronic Assessment and Plan: Is back on Eliquis. Subjective Subjective Date/Time Seen: 02/27/24 08:18 Post Op day: #6 Patient reports: no new complaints and afebrile Exam Const: General: comfortable, alert and awake Extrem: Right lower extremity: knee (ESME site clean, not draining currently. Incision looks good.) Objective Data Vital Signs Vital Signs: Vital Signs - 24 hr 02/26/24 09:22 02/26/24 17:01 02/26/24 20:31 Temperature 36.4 C Pulse Rate 67 72 68 Respiratory Rate 18 Blood Pressure 149/83 H Pulse Oximetry 97 Oxygen Delivery 02/26/24 20:00 02/26/24 21:11 02/26/24 21:31 Temperature 36.4 C L Pulse Rate 54 L Respiratory Rate 20 Blood Pressure 150/89 H Pulse Oximetry 97 100 Oxygen Delivery Room Air Room Air 02/27/24 06:00 02/27/24 07:55 Temperature 36.1 C L Pulse Rate 65 Respiratory Rate 18 Blood Pressure 167/63 H Pulse Oximetry 96 96 Oxygen Delivery Room Air Intake/Output Intake/Output: Intake & Output 02/24/24 02/25/24 02/26/24 02/27/24 23:59 23:59 23:59 23:59 Intake Total 2364 1490 1572 400 Output Total 20 2 200 Balance 2364 1470 1570 200 Meds/Results Medications: Active Medications Generic Name Dose Route Start Last Admin Trade Name Freq PRN Reason Stop Dose Admin Acetaminophen 500 mg 02/21/24 14:51 02/27/24 00:50 Acetaminophen 500 Mg Tablet PO 500 mg Q6H PRN Administration Pain Rated 1-3 Albuterol 2 puff 02/20/24 04:01 02/27/24 07:58 Albuterol Sulfate (*Sp) Aerosol 1 Puff INHALATION 2 puff Q6HRT PRN Administration Shortness Of Breath Apixaban 5 mg 02/26/24 09:00 02/26/24 20:31 Apixaban 5 Mg Tablet PO [address] Administration Aspirin 81 mg 02/20/24 09:00 02/26/24 09:21 Aspirin 81 Mg Enteric Tablet PO [address] Administration Duloxetine HCl 30 mg 02/20/24 09:00 02/26/24 09:21 Duloxetine Hcl 30 Mg Capsule.Dr PO [address] Administration Guaifenesin/Dextromethorphan 10 ml 02/22/24 04:53 02/22/24 05:08 Guaifenesin/Dextromethorphan 10 Ml Udc PO 10 ml Q4H PRN Administration Cough Ibuprofen 800 mg in 200 mls @ 400 mls/hr 02/21/24 14:51 Caldolor 800 Mg/200 Ml IVPB Q6H PRN Breakthrough Pain Rated 1-3 or NPO Lorazepam 1 mg 02/20/24 03:51 02/27/24 03:58 Lorazepam (*Crx) 1 Mg Tablet PO 1 mg Q6H PRN Administration Anxiety Lovastatin 10 mg 02/20/24 09:00 02/26/24 09:21 Lovastatin 10 Mg Tablet PO [address] Administration Morphine Sulfate 1 mg 02/24/24 13:38 Morphine Sulfate (*Crx) 2 Mg/Ml Inj IV PUSH Q2H PRN Breakthrough Pain Rated 4-6 or NPO Morphine Sulfate 2 mg 02/24/24 13:38 Morphine Sulfate (*Crx) 4 Mg/Ml Inj IV PUSH Q2H PRN Breakthrough Pain Rated 7-10 or NPO Naloxone HCl 0.1 mg 02/21/24 14:51 Naloxone Hcl 0.4 Mg/Ml Vial IV PUSH Q2M PRN Opiate Reversal Ondansetron HCl 4 mg 02/19/24 22:56 Ondansetron Inj 4 Mg/2 Ml Vial IV PUSH Q4H PRN Nausea Oxycodone/Acetaminophen 0.5 tablet 02/24/24 13:38 Oxycodone/Acetaminophen (*Crx) 5-325 Mg Tablet P
[2024-02-27] MEDS: polyethylene glycoL 3350 17 GM POWD.PACK PO (08:45)
[2024-02-27] MEDS: SOTALOL HCL 80 MG TABLET PO ×2 (08:47→22:12)
[2024-02-27] MEDS: APIXABAN 5 MG TABLET PO ×2 (08:47→22:13)
[2024-02-27] MEDS: LOVASTATIN 10 MG TABLET PO (08:48)
[2024-02-27] MEDS: SULFAMETHOXAZOLE/TRIMETHOPRIM 800/160 MG DS TABLET 1 TAB PO ×2 (08:48→22:12)
[2024-02-27] MEDS: DULoxetine HCL 30 MG CAPSULE.DR PO (08:48)
[2024-02-27] MEDS: CHOLECALCIFEROL 1,000 UNITS TABLET 1000 UNITS PO (08:48)
[2024-02-27] MEDS: ASPIRIN 81 MG ENTERIC TABLET PO (08:48)
--- NOTE | 2024-02-27 09:21 | P.PNIM_ITS ---
Progress Note: A&P Assessment and Plan (1) Left leg cellulitis: Code(s): L03.116 - Cellulitis of left lower limb Status: Acute Plan (1) Cellulitis and abscess of left leg Code(s): L03.119 - Cellulitis of unspecified part of limb; L02.619 - Cutaneous abscess of unspecified foot Status: Acute Assessment and Plan: Presented with open wound to the right knee Notable hematoma noted General surgery consulted Hematoma of left knee region: evacuation of the left knee hematoma per GS. received IV antibiotics, vanco and cefepime Wound care consult Wound culture: MRSA Patient has been on vancomycin 02/22 Change to Bactrim per general surgeon and wound culture (2) Anemia, macrocytic: Code(s): D53.9 - Nutritional anemia, unspecified Status: Acute Assessment and Plan: * Continue to trend labs * No indications of supplemented noted Hemoglobin dropped slightly (3) COPD (chronic obstructive pulmonary disease): Code(s): J44.9 - Chronic obstructive pulmonary disease, unspecified Status: Acute Assessment and Plan: * Currently on room air * Continue home inhalers * No indication of exacerbation Stable (4) Hypertension: Code(s): I10 - Essential (primary) hypertension Status: Acute Assessment and Plan: * Hypotensive POA * Amlodipine atenolol and hold 02/27/2024 * Atenolol resumed (5) A-fib: Code(s): I48.91 - Unspecified atrial fibrillation Status: Acute Assessment and Plan: * HR currently stable * Hold Eliquis for now * Continue home sotalol * Trend labs and vital signs Resume Eliquis when it is okay for general surgeon 02/27/2024: * Eliquis resumed Code status: Full code per patient DVT prophylaxis: Eliquis Stress ulcer prophylaxis: Protonix 40 daily PT/OT notes: PT/OT recommend [facility] facility Disposition: Patient continues admission for MRSA her knee balloon surgical intervention plan is for discharge to start and nursing and rehab tomorrow. Time Spent With Patient Time with patient: 15 - 25 minutes Subjective Date/time seen: 02/27/24 09:21 Interval history: 02/27/2024: Assumed Care Patient with no complaints, afebrile and surgical wound dry with minimal erythema. Plan for D/C tomorrow to [facility] for continued PT and wound care. Review of Systems Review of Systems: All systems reviewed & are unremarkable except as noted in HPI and below Exam Narrative: GENERAL: Pleasant, in no acute distress. Well-nourished. - EYES: EOMI. Anicteric. - HENT: Moist mucous membranes. - LUNGS: Clear to auscultation bilateral ly, no wheezing, rhonchi, or rales. - CARDIOVASCULAR: Regular rate and rhyth m. No murmur. No JVD. - ABDOMEN: Soft, non-tender and non-dist ended. No palpable masses. - EXTREMITIES: RLE surgical site clean d ry with minimal erythema. Peripheral pulses 2+. Non-tender. - NEUROLOGIC: No focal neurological defi cits. CN II-XII grossly intact. - PSYCHIATRIC: Awake, Alert and oriented x 3. Approp
--- NOTE | 2024-02-27 09:21 | PM.IMPN ---
Progress Note: A&P Assessment and Plan (1) Left leg cellulitis: Code(s): L03.116 - Cellulitis of left lower limb Status: Acute Plan (1) Cellulitis and abscess of left leg Code(s): L03.119 - Cellulitis of unspecified part of limb; L02.619 - Cutaneous abscess of unspecified foot Status: Acute Assessment and Plan: Presented with open wound to the right knee Notable hematoma noted General surgery consulted Hematoma of left knee region: evacuation of the left knee hematoma per GS. received IV antibiotics, vanco and cefepime Wound care consult Wound culture: MRSA Patient has been on vancomycin 02/22 Change to Bactrim per general surgeon and wound culture (2) Anemia, macrocytic: Code(s): D53.9 - Nutritional anemia, unspecified Status: Acute Assessment and Plan: Continue to trend labs No indications of supplemented noted Hemoglobin dropped slightly (3) COPD (chronic obstructive pulmonary disease): Code(s): J44.9 - Chronic obstructive pulmonary disease, unspecified Status: Acute Assessment and Plan: Currently on room air Continue home inhalers No indication of exacerbation Stable (4) Hypertension: Code(s): I10 - Essential (primary) hypertension Status: Acute Assessment and Plan: Hypotensive POA Amlodipine atenolol and hold 02/27/2024 Atenolol resumed (5) A-fib: Code(s): I48.91 - Unspecified atrial fibrillation Status: Acute Assessment and Plan: HR currently stable Hold Eliquis for now Continue home sotalol Trend labs and vital signs Resume Eliquis when it is okay for general surgeon 02/27/2024: Eliquis resumed Code status: Full code per patient DVT prophylaxis: Eliquis Stress ulcer prophylaxis: Protonix 40 daily PT/OT notes: PT/OT recommend long-term facility Disposition: Patient continues admission for MRSA her knee balloon surgical intervention plan is for discharge to start and nursing and rehab tomorrow. Time Spent With Patient Time with patient: 15 - 25 minutes Subjective Date/time seen: 02/27/24 09:21 Interval history: 02/27/2024: Assumed Care Patient with no complaints, afebrile and surgical wound dry with minimal erythema. Plan for D/C tomorrow to [facility] for continued PT and wound care. Review of Systems Review of Systems: All systems reviewed & are unremarkable except as noted in HPI and below Exam Narrative: GENERAL: Pleasant, in no acute distress. Well-nourished. - EYES: EOMI. Anicteric. - HENT: Moist mucous membranes. - LUNGS: Clear to auscultation bilaterally, no wheezing, rhonchi, or rales. - CARDIOVASCULAR: Regular rate and rhythm. No murmur. No JVD. - ABDOMEN: Soft, non-tender and non-distended. No palpable masses. - EXTREMITIES: RLE surgical site clean dry with minimal erythema. Peripheral pulses 2+. Non-tender. - NEUROLOGIC: No focal neurological deficits. CN II-XII grossly intact. - PSYCHIATRIC: Awake, Alert and oriented x 3. Appropriate mood and affect. - SKIN: Left leg surgical wound is well dressed, scant blood drained out from ESME vac - LYMPH: No cervical lymphadenopathy. Objective Data Vital Signs Vital Signs: Vital Signs - 24 hr 02/26/24 09:22 02/26/24 17:01 02/26/24 20:31 Temperature 97.6 F Pulse Rate 67 72 68 Respiratory Rate 18 Blood Pressure 149/83 H Pulse Oximetry 97 Oxygen Delivery 02/26/24 20:00 02/26/24 21:11 02/26/24 21:31 Temperature 97.5 F L Pulse Rate 54 L Respiratory Rate 20 Blood Pressure 150/89 H Pulse Oximetry 97 100 Oxygen Delivery Room Air Room Air 02/27/24 06:00 02/27/24 07:55 02/27/24 08:47 Temperature 97.0 F L Pulse Rate 65 78 Respiratory Rate 18 Blood Pressure 167/63 H Pulse Oximetry 96 96 Oxygen Delivery Room Air 02/27/24 09:00 Temperature Pulse Rate Respiratory Rate Blood Pressure Pulse Oximet
[2024-02-27] MEDS: atenoloL 50 MG TABLET PO (10:59)
[2024-02-27] MEDS: SENNA/DOCUSATE SODIUM TABLET 2 TAB PO (22:13)
[2024-02-28 05:14] LABS: Hematocrit 40.4 % (37.0-47.0); Hemoglobin 12.4 g/dL (12.0-15.0); Mean Corpuscular HGB Conc 30.7 g/dl (32-36); Mean Corpuscular Hemoglobin 30.2 pg (26-34); Mean Corpuscular Volume 98.3 fl (80-100); Mean Platelet Volume 10.2 fl (7.4-10.4); Platelet Count Result 249 k/mm3 (150-375); Red Blood Count 4.11 M/mm3 (4.2-5.4); Red Cell Distribution Width 13.3 % (11.5-14.5); White Blood Count 9.1 K/mm3 (4.5-10.0)
[2024-02-28] MEDS: LORazepam (*CRX) 1 MG TABLET PO ×2 (05:14→11:53)
[2024-02-28 05:35] LABS: Alanine Aminotransferase 24 U/L (6-35); Albumin Level 3.6 g/dL (3.5-5.1); Alkaline Phosphatase 65 U/L (38-126); Anion Gap 8 mmol/L (4-12); Aspartate Amino Transferase 25 U/L (14-36); Bilirubin,Total 0.6 mg/dL (0.2-1.3); Blood Urea Nitrogen 20 mg/dL (7-17); Calcium 8.7 mg/dL (8.4-10.2); Carbon Dioxide 27 mmol/L (22-30); Chloride 103 mmol/L (98-107); Estimated CRCL calculation 47 ml/min; Estimated Glomerular Filt Rate 44; Glucose 91 mg/dL (65-110); Potassium 3.7 mmol/L (3.4-5.0); Sodium 138 mmol/L (137-145)
[2024-02-28 06:00] VITALS: BP 151/87; PULSE 53; RESP 18; TEMP 36.3; O2SAT 97
[2024-02-28] MEDS: ALBUTEROL SULFATE (*SP) AEROSOL 1 PUFF 2 PUFF INHALATION (07:21)
[2024-02-28] MEDS: FLUTICASONE/SALMETEROL 115-21 MCG INHALER 1 PUFF 2 PUFF INHALATION (07:21)
[2024-02-28 07:24] VITALS: PULSE 61; RESP 20; O2SAT 92
[2024-02-28 09:08] VITALS: PULSE 75
[2024-02-28] MEDS: LOVASTATIN 10 MG TABLET PO (09:08)
[2024-02-28] MEDS: APIXABAN 5 MG TABLET PO (09:08)
[2024-02-28] MEDS: ASPIRIN 81 MG ENTERIC TABLET PO (09:08)
[2024-02-28] MEDS: atenoloL 50 MG TABLET PO (09:08)
[2024-02-28] MEDS: SULFAMETHOXAZOLE/TRIMETHOPRIM 800/160 MG DS TABLET 1 TAB PO (09:08)
[2024-02-28 09:09] VITALS: PULSE 75
[2024-02-28] MEDS: CHOLECALCIFEROL 1,000 UNITS TABLET 1000 UNITS PO (09:09)
[2024-02-28] MEDS: DULoxetine HCL 30 MG CAPSULE.DR PO (09:09)
[2024-02-28] MEDS: SOTALOL HCL 80 MG TABLET PO (09:09)
[2024-02-28] MEDS: ACETAMINOPHEN 500 MG TABLET PO (11:53)
--- NOTE | 2024-02-28 13:03 | PCNWS ---
Weekly nutritional screen. Patient is tolerating current diet with adequate intake. No weight loss reported. No nutritional needs at this time.
--- NOTE | 2024-02-28 13:48 | PM.PNGS ---
Progress Note: A&P Assessment and Plan (1) Hematoma of left knee region: Code(s): S80.02XA - Contusion of left knee, initial encounter Status: Acute Assessment and Plan: Wound healing adequately. Continue dry gauze dressing changes and Dioni wrap to left knee daily. Wash wound at least every other day and preferably each day with soap and water. Avoid excessive flexion of the knee. Patient to see me in the office in 2 weeks. (2) MRSA infection: Code(s): A49.02 - Methicillin resistant Staphylococcus aureus infection, unspecified site Status: Acute Assessment and Plan: Continue Bactrim for more days. (3) Anticoagulant long-term use: Code(s): Z79.01 - alf (current) use of anticoagulants Status: Chronic Assessment and Plan: Eliquis has been resumed and patient can continue it. Subjective Subjective Date/Time Seen: 02/28/24 13:48 Patient reports: no new complaints, tolerating a regular diet and afebrile Exam Extrem: Left lower extremity: knee (Wound and ESME drain site healing slowly. No seroma or sign of infection.) Details: no tenderness, no swelling, no crepitus and no unusual warmth Objective Data Vital Signs Vital Signs: Vital Signs - 24 hr 02/27/24 13:56 02/27/24 20:20 02/27/24 21:39 Temperature 36.2 C L 36.6 C Pulse Rate 53 L 51 L Respiratory Rate 16 20 Blood Pressure 139/56 L 145/43 H Pulse Oximetry 98 96 99 Oxygen Delivery Room Air 02/27/24 22:12 02/27/24 20:00 02/28/24 06:00 Temperature 36.3 C L Pulse Rate 58 L 53 L Respiratory Rate 18 Blood Pressure 151/87 H Pulse Oximetry 97 Oxygen Delivery Room Air 02/28/24 07:24 02/28/24 07:24 02/28/24 09:08 Temperature Pulse Rate 61 75 Respiratory Rate 20 Blood Pressure Pulse Oximetry 92 Oxygen Delivery Room Air 02/28/24 09:09 02/28/24 08:00 Temperature Pulse Rate 75 Respiratory Rate Blood Pressure Pulse Oximetry Oxygen Delivery Room Air Intake/Output Intake/Output: Intake & Output 02/25/24 02/26/24 02/27/24 02/28/24 23:59 23:59 23:59 23:59 Intake Total 1490 1572 1670 820 Output Total 20 2 200 Balance 1470 1570 1470 820 Meds/Results Medications: Active Medications Generic Name Dose Route Start Last Admin Trade Name Freq PRN Reason Stop Dose Admin Acetaminophen 500 mg 02/21/24 14:51 02/28/24 11:53 Acetaminophen 500 Mg Tablet PO 500 mg Q6H PRN Administration Pain Rated 1-3 Albuterol 2 puff 02/20/24 04:01 02/28/24 07:21 Albuterol Sulfate (*Sp) Aerosol 1 Puff INHALATION 2 puff Q6HRT PRN Administration Shortness Of Breath Apixaban 5 mg 02/26/24 09:00 02/28/24 09:08 Apixaban 5 Mg Tablet PO [address] Administration Aspirin 81 mg 02/20/24 09:00 02/28/24 09:08 Aspirin 81 Mg Enteric Tablet PO [address] Administration Atenolol 50 mg 02/27/24 09:30 02/28/24 09:08 Atenolol 50 Mg Tablet PO [address] Administration Duloxetine HCl 30 mg 02/20/24 09:00 02/28/24 09:09 Duloxetine Hcl 30 Mg Capsule.Dr PO [address] Administration Guaifenesin/Dextromethorphan 10 ml 02/22/24 04:53 02/22/24 05:08 Guaifenesin/Dextromethorphan 10 Ml Udc PO 10 ml Q4H PRN Administration Cough Ibuprofen 800 mg in 200 mls @ 400 mls/hr 02/21/24 14:51 Caldolor 800 Mg/200 Ml IVPB Q6H PRN Breakthrough Pain Rated 1-3 or NPO Lorazepam 1 mg 02/20/24 03:51 02/28/24 11:53 Lorazepam (*Crx) 1 Mg Tablet PO 1 mg Q6H PRN Administration Anxiety Lovastatin 10 mg 02/20/24 09:00 02/28/24 09:08 Lovastatin 10 Mg Tablet PO [address] Administration Morphine Sulfate 1 mg 02/24/24 13:38 Morphine Sulfate (*Crx) 2 Mg/Ml Inj IV PUSH Q2H PRN Breakthrough Pain Rated 4-6 or NPO Morphine Sulfate 2 mg 02/24/24 13:38 Morphine Sulfate (*Crx) 4 Mg/Ml Inj IV PUSH Q2H PRN Breakthrough Pain Rated 7-
--- NOTE | 2024-02-28 14:02 | PM.DS ---
DS: Admitting Diagnosis Discharge Date 02/28/2024 Admitting Diagnosis Hematoma versus cellulitis left lower extremity DS: Discharge Diagnosis Discharge Diagnosis (1) Left leg cellulitis: Code(s): L03.116 - Cellulitis of left lower limb Status: Acute Plan (1) Cellulitis and abscess of left leg Code(s): L03.119 - Cellulitis of unspecified part of limb; L02.619 - Cutaneous abscess of unspecified foot Status: Acute Assessment and Plan: Presented with open wound to the right knee Notable hematoma noted General surgery consulted Hematoma of left knee region: evacuation of the left knee hematoma per GS. received IV antibiotics, vanco and cefepime Wound care consult Wound culture: MRSA Patient has been on vancomycin 02/22 Change to Bactrim per general surgeon and wound culture (2) Anemia, macrocytic: Code(s): D53.9 - Nutritional anemia, unspecified Status: Acute Assessment and Plan: Continue to trend labs No indications of supplemented noted Hemoglobin dropped slightly (3) COPD (chronic obstructive pulmonary disease): Code(s): J44.9 - Chronic obstructive pulmonary disease, unspecified Status: Acute Assessment and Plan: Currently on room air Continue home inhalers No indication of exacerbation Stable (4) Hypertension: Code(s): I10 - Essential (primary) hypertension Status: Acute Assessment and Plan: Hypotensive POA Amlodipine atenolol and hold 02/27/2024 Atenolol resumed (5) A-fib: Code(s): I48.91 - Unspecified atrial fibrillation Status: Acute Assessment and Plan: HR currently stable Hold Eliquis for now Continue home sotalol Trend labs and vital signs Resume Eliquis when it is okay for general surgeon 02/27/2024: Eliquis resumed Code status: Full code per patient DVT prophylaxis: Eliquis Stress ulcer prophylaxis: Protonix 40 daily PT/OT notes: PT/OT recommend snf facility Disposition: Discharged to [facility] and rehab DS: Summary Hospital Course Reason for hospitalization: Hematoma versus cellulitis left lower extremity Hospital Course: Patient was a 79-year-old female who had presented to the emergency department initially for left knee pain that included redness and swelling that had been ongoing for the last 2 weeks even after completing her oral therapy with minimal improvement. Per previous medical chart patient had a ground level fall resulting in a subcutaneous hematoma of the left anterior knee. Patient then arrived to the emergency department due to excessive wound opening and drainage coming from hematoma area. Patient had stated that knee had little to no improvement however she is unable to care for it due to her age and macular degeneration cannot see well. Of note patient reported she has severe collateral for home and minimal ability to ambulate and was so severe that home health would not come in to monitor wound. Patient was admitted to the medical unit for IV antibiotic therapy and surgery was consulted. Patient was brought to OR for evacuation of hematoma with wound culture growth MRSA sensitive to Bactrim. Patient tolerated procedure well and WBC continued to have a downward trend she remained afebrile and vital stable other labs unremarkable. Patient remained hospitalized until a snf facility could be arranged. Patient was seen day of discharge with no complaints in overall the knee improved with decreased erythema and swelling dressing was dry intact. [facility] was [facility] for continued PT/OT/wound care follow-up with general surgery in 2 weeks. Status at Discharge Functional status at discharge: uses cane/walker Overall status at discharge: patient is progressing back to baseline Time Spent with Patient Time attestation: Total time spent providing and
== END 2024-02-28 14:50 | DRG 989 ==
LOC: ANHED 20:38 → ANH3MED 23:24
PROVIDERS: Hospitalist; Physician Assistant; Surgery; Admitting Provider Internal Medicine; Emergency Provider Student in an Organized Health Care Education/Training Program; PCP Nurse Practitioner Family; Visit Provider Nurse Practitioner Family
PROC: 0SC Lower Joints, Extirpation (ICD-10-PCS; principal; 2024-02-21 13:00)
DX: L03.116 Cellulitis of left lower limb (principal); B95.62 Methicillin resistant Staphylococcus aureus infection as the cause of diseases classified elsewhere; D53.9 Nutritional anemia, unspecified; J44.9 Chronic obstructive pulmonary disease, unspecified; I10 Essential (primary) hypertension; I48.91 Unspecified atrial fibrillation; E78.5 Hyperlipidemia, unspecified; F17.210 Nicotine dependence, cigarettes, uncomplicated; F41.8 Other specified anxiety disorders; Z79.01 Long term (current) use of anticoagulants; S80.02XA Contusion of left knee, initial encounter; W19.XXXA Unspecified fall, initial encounter
CPT/HCPCS: 36415; 80048; 80053; 80202; 82550; 82565; 83605; 83880; 85025; 85027; 85380; 85652; 86140; 87040; 87070; 87077; 87181; 87205; 90471; 90715; 93971; 94640; 96365; 97110; 97161; 97166; 97530; 97535; 99285; A9270; G0378; J1100; J1596; J1650; J2405; J2704; J3010; J3370; J7120; L1830